=== PATIENT | female | born 1940 | race Caucasian/White ===

== ENCOUNTER 2017-03-10 18:01 | Inpatient (IN) | payer MEDICARE, OTHER ==
[~2017-03-10] VITALS: Ht 152.4 cm; Wt 64.6 kg
[2017-03-10 18:24] LABS: AADO2 Arterial 113.4 mmHg (7.0-24.0); Allen Test ACCEPTAB; Arterial Base Excess 0.6 mmol/L (-3.0-3); Arterial COHb 0 % (0.0-3.0); Arterial Fraction of Oxyhgb 94.8 % (93.0-99.0); Arterial HCO3 24.4 mmol/L (22.0-26.0); Arterial MetHb 0.3 % (0.0-1.5); Arterial Total Hemglobin 10.1 g/dl (12.0-18.0); MODE NASAL CANNULA
[2017-03-10] MEDS ORDERED: ONDANSETRON 4 MG INJ IV STA (18:27)
[2017-03-10] MEDS ORDERED: ZOLP5TAB PO (18:28)
[2017-03-10] MEDS ORDERED: APIX2.5T PO (18:28)
[2017-03-10] MEDS ORDERED: ACYC400T2 PO (18:28)
[2017-03-10] MEDS ORDERED: BUSP10TA2 PO (18:29)
[2017-03-10] MEDS ORDERED: LORA-441 PO (18:29)
[2017-03-10] MEDS ORDERED: DILTIAZEM 25 MG INJ IV ONE (18:30)
[2017-03-10] MEDS ORDERED: CITA20TA11 PO (18:30)
[2017-03-10] MEDS ORDERED: LACTINEX PO (18:30)
[2017-03-10] MEDS ORDERED: FER325 PO (18:30)
[2017-03-10] MEDS ORDERED: LAMO25TA PO (18:31)
[2017-03-10] MEDS ORDERED: FURO-110 PO (18:31)
[2017-03-10] MEDS ORDERED: LEVA0.634 INHALATION ×2 (18:32→18:33)
[2017-03-10] MEDS ORDERED: ATOR80TA75 PO (18:34)
[2017-03-10] MEDS ORDERED: LEVO250T9 PO (18:34)
[2017-03-10] MEDS ORDERED: MELA5TAB4 PO (18:34)
[2017-03-10] MEDS ORDERED: METO-335 PO (18:36)
[2017-03-10] MEDS ORDERED: MULTI PO (18:37)
[2017-03-10] MEDS ORDERED: HYDR-906 PO ×2 (18:37→18:38)
[2017-03-10] MEDS ORDERED: POTA10TA37 PO (18:39)
[2017-03-10] MEDS ORDERED: PANT40TA3 PO (18:39)
[2017-03-10] MEDS ORDERED: AMIN30LI PO (18:40)
[2017-03-10] MEDS ORDERED: ASCO500C7 PO (18:40)
[2017-03-10] MEDS ORDERED: SODI650T PO (18:41)
[2017-03-10] MEDS ORDERED: ACET-2047 PO (18:41)
[2017-03-10] MEDS ORDERED: UDROBDM PO (18:42)
[2017-03-10] MEDS ORDERED: MIRT7.5T8 PO (18:42)
--- NOTE | 2017-03-10 18:49 | RADRPT ---
PROCEDURE: XR, Chest. CLINICAL INDICATION: Chest pain. TECHNIQUE: AP chest COMPARISON: None available. FINDINGS: There is no acute infiltrate in the lungs. There is large bilateral pleural effusion with compressi ve atelectasis of the both lower lobes. The heart is moderately enlarged with pulmonary venous sebastian estion. There is status post CABG. The right Port-A-Cath remains in good position. IMPRESSION: 1. Large bilateral pleural effusion with compressive atelectasis of the both lower lobes. 2. Moderate cardiomegaly with pulmonary venous congestion. Status post CABG. RPTAT: GG .Kody Dahl MD, Date Time Electronically viewed and signed by .Kody Dahl MD, on 03/10/2017 18:48 .Y/
--- NOTE | 2017-03-10 18:49 | ERD ---
ER Documentation Chief Complaint Chief Complaint Shortness of breath and cyanosis at her facility. HPI 76-year-old female comes in for increasing shortness of breath over the last 2 days without chest discomfort without pain. She also has nausea and feels generally weak. She is brought in by paramedics who described her as having perioral cyanosis when they arrived. She states feeling very cold but denies fever or chills.. ROS All systems reviewed and are negative except as per history of present illness. Medications Home Meds Reported Medications Mirtazapine* (Mirtazapine*) 7.5 Mg Tablet, 7.5 MG PO HS, TAB 03/10/17 Guaifenesin-Dextromethorphan* (Robitussin* DM) 100MG/10MG/5ML Syrup, 10 ML PO Q6H Y for COUGH, ML 03/10/17 Sodium Bicarbonate* (Sodium Bicarbonate*) 650 Mg Tablet, 650 MG PO TID, TAB 03/10/17 Acetaminophen* (Acetaminophen*) 650 Mg Tablet, 650 MG PO Q4 Y for PAIN AND OR ELEVATED TEMP, #30 TAB 03/10/17 Ascorbic Acid* (Vitamin C*) 500 Mg Capsule.sa, 500 MG PO BID, CAP 03/10/17 Amino Acids/Protein Hydrolys (PRO-STAT LIQUID) 30 Ml Liquid.pkt, 30 ML PO BID 03/10/17 Potassium Chloride* (K-Dur*) 10 Meq Tab.prt.sr, 10 MEQ PO DAILY, TAB 03/10/17 Pantoprazole* (Protonix*) 40 Mg Tablet.dr, 40 MG PO DAILY, TAB 03/10/17 Hydrocodone/Acetaminophen ([place] 5-325 Tablet) 1 Each Tablet, 1 EACH PO BID Y for PAIN MANAGEMENT, TAB 03/10/17 Hydrocodone/Acetaminophen ([place] 5-325 Tablet) 1 Each Tablet, 1 EACH PO Q6 Y for MODERATE PAIN LEVEL 4-6, TAB 03/10/17 Multivitamins* (Theragran*) 1 Tab Tab, 1 TAB PO DAILY, TAB 03/10/17 Metoprolol Succinate* (Toprol XL*) 25 Mg Tab.sr.24h, 25 MG PO DAILY, #30 TAB HOLD IF SBP BELOW 110 OR HR BELOW 60 03/10/17 Melatonin (Melatonin) 5 Mg Tablet, 5 MG PO HS, TAB 03/10/17 Atorvastatin* (Atorvastatin*) 80 Mg Tablet, 80 MG PO QHS, #30 TAB 03/10/17 Levofloxacin* (Levofloxacin*) 250 Mg Tablet, 250 MG PO DAILY, TAB STOP 03-14-17 03/10/17 Levalbuterol Hcl* (Levalbuterol Hcl*) 0.63 Mg/3 Ml Vial.neb, 0.63 MG INHALATION Q8 Y for WHEEZING AND SOB, VIAL 03/10/17 Levalbuterol Hcl* (Levalbuterol Hcl*) 0.63 Mg/3 Ml Vial.neb, 0.63 MG INHALATION Q4 Y for WHEEZING AND SOB, VIAL 03/10/17 Furosemide* (Lasix*) 20 Mg Tablet, 20 MG PO DAILY, TAB 03/10/17 Lamotrigine* (Lamotrigine*) 25 Mg Tablet, 25 MG PO DAILY, TAB 03/10/17 Lactobacillus Acidophilus* (Lactinex*) 1 Tab Chew, 1 TAB PO DAILY, TAB 03/10/17 Ferrous Sulfate* (Ferrous Sulfate*) 325 Mg Tabec, 325 MG PO BID, TAB 03/10/17 Citalopram Hydrobromide* (Celexa*) 20 Mg Tablet, 20 MG PO DAILY, #30 TAB 03/10/17 Buspirone Hcl* (Buspirone Hcl*) 10 Mg Tab, 10 MG PO BID, TAB 03/10/17 Lorazepam* (Ativan*) 0.5 Mg Tablet, 0.5 MG PO Q6 Y for ANXIETY, #60 TAB 03/10/17 Apixaban* (Eliquis*) 2.5 Mg Tablet, 2.5 MG PO BID, TAB 03/10/17 Zolpidem Tartrate* (Ambien*) 5 Mg Tablet, 5 MG PO QHS Y for INSOMNIA, #30 TAB 03/10/17 Acyclovir* (Acyclovir*) 400 Mg Tablet, 400 MG PO MONWEDFRI, TAB 03/10/17 Allergies Allergies: Coded Allergies: No Known Allergy (Unverified , 03/10/17) Physical Exam Vitals Vital Signs Date Time Temp Pulse Resp B/P Pulse Ox O2 Delivery O2 Flow Rate FiO2 03/10/17 20:30 98.5 82 20 98/47 100 Nasal Cannula 03/10/17 19:30 98.7 105 20 92/67 97 Nasal Cannula 03/10/17 18:30 98.7 136 25 101/57 97 Nasal Cannula 03/10/17 18:30 Nasal Cannula 2 03/10/17 18:30 Nasal Cannula 2.0 Physical Exam Const: [] Moderate distress, appears uncomfortable Head: Atraumatic Eyes: Normal Conjunctiva ENT: Normal External Ears, Nose and Mouth. Neck: Full range of motion..~ No meningismus. Resp: Moderately decreased bibasilar breath sounds with some anterior wheezing bilaterally, mild tachypnea Cardio: Irregularly irregular tachycardia, no murmurs Abd: Soft, non tender, non distended. Normal bowel sounds Skin: No petechiae or rashes Back: No midline or flank tenderness Ext: No cyanosis, or edema Neur: Awake and alert oriented 3, no focal deficits Psych: Anxious Result Diagram: 03/10/17192903/10/171928 Results 24 hrs Laboratory Tests Test 03/10/17 18:06 03/10/17 19:29 03/10/17 19:30 03/10/17 20:22 Blood Gas Specimen Source Blood arterial Arterial Blood Date Drawn 03/10/2017 6:18:22 PM Arterial Blood pH (Temp corrected) 7.450 Arterial Blood pCO2 (Temp correct) 35.9mmhg Arterial Blood pO2 (Temp corrected) 80.0mmHG Arterial Blood HCO3 24.4mmol/L Arterial Blood Base Excess 0.6mmol/L Arterial Blood Oxygen Saturation 95.1mmHG Ernesto Test ACCEPTAB Arterial Blood Gas Puncture Site Left Radial Arterial Blood Carboxyhemoglobin 0% Arterial Blood Methemoglobin 0.3% Blood Gas A-a O2 Differential 113.4mmHg Oxyhemoglobin Percent 94.8% Total Hemoglobin 10.1g/dl Blood Gas Temperature 37.0C Blood Gas Modality NASAL CANNULA FiO2 33.0% Blood Gas Notified Whom MDA Blood Gas Notified Time 03/10/2017 6:24:47 PM Sodium Level 142mmol/L Potassium Level 4.0mmol/L Chloride Level 107mmol/L Carbon Dioxide Level 25mmol/L Anion Gap 14 Blood Urea Nitrogen 32mg/dl Creatinine 1.45mg/dl Glucose Level 78mg/dl Calcium Level 8.1mg/dl Troponin I < 0.012ng/ml B-Type Natriuretic Peptide 52679CU/ML White Blood Count 12.010^3/ul Red Blood Count 2.7610^6/ul Hemoglobin 8.7g/dl Hematocrit 27.1% Mean Corpuscular Volume 98.2fl Mean Corpuscular Hemoglobin 31.5pg Mean Corpuscular Hemoglobin Concent 32.1g/dl Red Cell Distribution Width 17.1% Platelet Count 99770^3/UL Mean Platelet Volume 12.0fl Neutrophils % % Segmented Neutrophils % (Manual) 57% Band Neutrophils % (Manual) 2% Lymphocytes % % Lymphocytes % (Manual) 37% Monocytes % % Monocytes % (Manual) 4% Eosinophils % % Basophils % % Nucleated Red Blood Cells % 0.0/100WBC Neutrophils # 10^3/ul Neutrophils # (Manual) 6.910^3/ul Band Neutrophils # 0.210^3/ul Absolute Lymphocytes (Manual) 4.410^3/ul Lymphocytes # 10^3/ul Monocytes # 10^3/ul Absolute Monocytes (Manual) 0.410^3/ul Eosinophils # 10^3/ul Basophils # 10^3/ul Nucleated Red Blood Cells # 10^3/ul Platelet Estimate DECREASED Hypochromasia 1+ Poikilocytosis 1+ Anisocytosis 1+ Macrocytosis 1+ Tear Drop Cells 1+ Ovalocytes 1+ Lactic Acid Level 1.4mmol/L Current Medications Medications (Trade) Dose Ordered Sig/Marcos Route PRN Reason Start Time Stop Time Status Last Admin Dose Admin Diltiazem HCl (Cardizem Iv) 15 mg ONCE ONCE IV 03/10/17 18:30 03/10/17 18:31 DC 03/10/17 19:25 Ondansetron HCl (Zofran Inj) 4 mg ONCE STAT IV 03/10/17 18:27 03/10/17 18:29 DC 03/10/17 19:25 Morphine Sulfate 3 mg 3 mg ONCE STAT IV 03/10/17 19:21 03/10/17 19:22 DC 03/10/17 19:27 Lactated Ringer's 1,000 ml @ 1,000 mls/hr Q1H ONCE IV 03/10/17 20:30 03/10/17 21:29 DC Cefepime HCl 50 ml @ 100 mls/hr ONCE ONCE IVPB 03/10/17 20:30 03/10/17 20:59 DC 03/10/17 20:50 Norepinephrine 0 ml @ ud STK-MED ONCE .ROUTE 03/10/17 20:22 03/10/17 20:23 DC Norepinephrine 250 ml @ 1.875 mls/ hr TITRATE IV 03/10/17 20:30 Lactated Ringer's 1,000 ml @ 1,000 mls/hr Q1H ONCE IV 03/10/17 20:30 03/10/17 21:29 DC 03/10/17 20:30 Lactated Ringer's (Lr) 500 ml @ 500 mls/hr Q1H ONCE IV 03/10/17 20:30 03/10/17 21:29 DC Procedures/MDM 76-year-old female with significant hypotension combined with acute congestive heart failure and reactive airway component. She has had cyanosis prior to oxygen administration. A. fib with RVR was quickly corrected with Cardizem. The patient's blood pressure did not rebound after that and had several low blood pressure readings although her heart rate was controlled. She also had profound shortness of breath. She was given a breathing treatment because she had some wheezing of Xopenex and Atrovent. This did help her feel like she had less shortness of breath. She had to be given IV fluid to try to correct the hypotension and Levophed drip was even started for a short time. She was given sepsis dose IV fluids and cefepime was started when her white blood cell count remained elevated in conjunction with the tachycardia. Pleural effusions make it difficult to evaluate for any infiltrate in the lower lobes of her lungs. Does have significant elevation of BNP. She is being admitted to ICU because she requires such close monitoring of concomitant congestive heart failure with hypotension requiring IV fluid. Dr. Wise will be admitting. EKG interpretation: A. fib with RVR rate of 107, left axis deviation, low voltage with global T-wave flattening with no ST elevations or depressions concerning for acute ischemia, abnormal EKG. Monitor interpretation: Initial irregular tachycardia rate up to 140s followed by rate controlled A. fib after Cardizem administration. No other arrhythmias Chest x-ray interpretation: Bilateral moderate pleural effusions with difficulty evaluating for underlying pneumonia in the lower lungs, engorgement of pulmonary vasculature with no sona pulmonary edema, no pneumothorax, no fractures Critical care time greater than 35 minutes: This includes treatment of A. fib with RVR, use of vasoactive medication Cardizem, multiple visits patient's bedside to reassess cardio dynamic status, review of chart, discussion with patient and daughter admitting doctor. This does not include any billable procedures. Departure Diagnosis: Primary Impression: Atrial fibrillation with RVR Additional Impressions: Respiratory distress Hypotension Congestive heart failure Normocytic anemia Renal insufficiency Condition: Serious MIGUEL ANGEL FALLON DO Mar 10, 2017 18:48
[2017-03-10] MEDS ORDERED: morphine 4 MG/ML VIAL IV STA (19:21)
[2017-03-10 19:41] LABS: HEMATOCRIT 27.1 % (37.0-47.0); HEMOGLOBIN 8.7 g/dl (12.0-16.0); MEAN CORPUSCULAR HEMOGLOBIN 31.5 pg (29.0-33.0); MEAN CORPUSCULAR HGB CONC 32.1 g/dl (32.0-37.0); MEAN CORPUSCULAR VOLUME 98.2 fl (82.0-101.0); PLATELET COUNT 134 10^3/UL (140-415); RED BLOOD COUNT 2.76 10^6/ul (4.20-5.40); RED CELL DISTRIBUTION WIDTH 17.1 % (11.5-14.5)
[2017-03-10 19:49] LABS: POSITIVE DIFF @See below
[2017-03-10 20:04] LABS: ANION GAP 14 (8-16); BLOOD UREA NITROGEN 32 mg/dl (7-20); CALCIUM 8.1 mg/dl (8.4-10.2); CARBON DIOXIDE 25 mmol/L (21-31); CHLORIDE 107 mmol/L (97-110); CREATININE 1.45 mg/dl (0.44-1.00); GLUCOSE 78 mg/dl (70-220); SODIUM 142 mmol/L (135-144)
[2017-03-10 20:14] LABS: B-TYPE NATRIURETIC PEPTIDE 16400 PG/ML (0-450)
[2017-03-10 20:14] LABS: ANISOCYTOSIS 1+ (0-0); BURR CELLS 1+ (0-0); HYPOCHROMASIA 1+ (0-0); MONOCYTES % (M) 4 % (0-11); OVALOCYTES 1+ (0-0); PLATELET ESTIMATE DECREASED; POIKILOCYTOSIS 1+ (0-0); TEAR DROP CELLS 1+ (0-0)
[2017-03-10 20:15] LABS: TROPONIN-I < 0.012 ng/ml (0.00-0.12)
[2017-03-10] MEDS ORDERED: NORepinephrine 8MG/250 ML (PMX 0 ML ONE (20:22)
[2017-03-10] MEDS ORDERED: LACTATED RINGER'S 1,000 ML IV ONE ×2 (20:30)
[2017-03-10] MEDS ORDERED: NORepinephrine 8MG/250 ML (PMX 250 ML IV SCH ×2 (20:30→23:30)
[2017-03-10] MEDS ORDERED: CEFEPIME 2GM/50 ML (PMX) 50 ML IVPB ONE (20:30)
[2017-03-10] MEDS ORDERED: LACTATED RINGER'S 500 ML IV ONE (20:30)
[2017-03-10] MEDS ORDERED: LEVALBUTEROL (NEB) 1.25 MG/0.5 ML AMP HHN ONE (21:30)
[2017-03-10] MEDS ORDERED: IPRATROPIUM (NEB) 0.5 MG/2.5 ML AMP HHN ONE (21:30)
[2017-03-10 22:08] LABS: ADD UMIC NO; UR ASCORBIC ACID 40 mg/dL (NEGATIVE); UR BILIRUBIN (Dip) NEGATIVE (NEGATIVE); UR BLOOD (Dip) NEGATIVE (NEGATIVE); UR CLARITY CLEAR (CLEAR); UR COLOR YELLOW (YELLOW); UR GLUCOSE (Dip) NEGATIVE (NEGATIVE); UR KETONES (Dip) NEGATIVE (NEGATIVE); UR LEUKOCYTE ESTERASE (Dip) NEGATIVE Leu/ul (NEGATIVE); UR NITRITE (Dip) NEGATIVE (NEGATIVE); UR SPECIFIC GRAVITY (Dip) 1.012 (1.003-1.030); UR TOTAL PROTEIN (Dip) NEGATIVE (NEGATIVE); UR UROBILINOGEN (Dip) NEGATIVE (NEGATIVE)
[2017-03-10 23:30] VITALS: TEMP 98.6
[2017-03-10] MEDS ORDERED: morphine 2 MG INJ IV PRN (23:30)
[2017-03-10] MEDS ORDERED: NITROGLYCERIN (SL) 0.4 MG TAB SL PRN (23:30)
[2017-03-11] VITALS (48 sets, daily range): BP systolic 75–141; BP diastolic 39–100; PULSE 76–152; RESP 11–28
[2017-03-11] MEDS ORDERED: PENDING SANTYL ORDER FOR WOUND CARE XX PRN (01:30)
[2017-03-11 01:44] LABS: CREATINE KINASE 27 IU/L (23-200)
[2017-03-11] MEDS: ALBUTEROL/IPRATROPIUM (NEB) 3 ML AMP NEB PRN ×2 (01:54→22:10)
[2017-03-11 02:04] LABS: CK-MB 1.76 ng/ml (0.0-2.4)
[2017-03-11 02:08] LABS: TROPONIN-I < 0.012 ng/ml (0.00-0.12)
[2017-03-11 05:45] LABS: ALBUMIN 2.1 g/dl (3.3-4.9); ALBUMIN/GLOBULIN RATIO 0.87; CREATININE 1.43 mg/dl (0.44-1.00); MAGNESIUM 1.7 mg/dl (1.7-2.5); POTASSIUM 4.1 mmol/L (3.5-5.1); TOTAL PROTEIN 4.5 g/dl (6.1-8.1)
[2017-03-11 05:47] LABS: CREATINE KINASE 26 IU/L (23-200)
[2017-03-11 05:59] LABS: TROPONIN-I < 0.012 ng/ml (0.00-0.12)
[2017-03-11] MEDS ORDERED: PANTOPRAZOLE (EC) 40 MG TAB PO SCH (06:00)
[2017-03-11] MEDS ORDERED: VANCOMYCIN IV PER PHARMACY XX SCH (07:00)
[2017-03-11] MEDS: METOPROLOL (XL) 25 MG TAB PO SCH ×2 (07:00→08:21)
--- NOTE | 2017-03-11 07:00 | HP ---
Date/Time of Note Date/Time of Note DATE: 03/11/17 TIME: 06:53 Assessment/Plan VTE Prophylaxis VTE Prophylaxis Intervention: other (Eliquis) Lines/Catheters IV Catheter Type (from Nrs): paulie cath Central line still needed: Yes Urinary Cath still in place: Yes Reason Cath still needed: terminal illness/intractable pain Assessment/Plan Assessment/Plan 1. A-fib with RVR -Continue outpatient Toprol and Eliquis -Will start on a meal drip -Obtain a 2D echo and trend troponins -Cardiology consult 2. Shock, cardiac vs from cardizem vs other -Continue pressure support for now -Cardiology consult 3. CHF exacerbation, with volume overload state, -CXR with Large bilateral pleural effusion, +significant LE edema -will diurese -will give albumin to help with BP and edema -Check 2D echo -Pulmonary and cardiac consult 4. History of CAD with CABG -Continue outpatient medications -Cardiology to follow patient 5. History of COPD -Supplemental oxygen -As needed bronchodilators and steroid 6. Sacral decubitus ulcer -Wound care consult, wound culture, antibiotic 7. Acute versus CKD -Monitor a.m. lab for now -Avoid nephrotoxins -Renal ultrasound and nephrology consult as needed HPI/ROS Admit Date/Time Admit Date/Time Mar 10, 2017 at 20:32 Hx of Present Illness This is a 76-year-old female with a history of hypertension, COPD, bipolar, CAD , CABG who presented to the ER for shortness of breath, chest pain, generalized weakness. Symptoms been going on for the past 2 days. When she presented to the ER she was found to be in rapid A-fib. She was given diltiazem and then was started on Levophed for hypotension. Labs shows a WBC of 12,000, creatinine 1.45 and hemoglobin 8.7. Troponins are negative 3 so far. Chest x- ray shows large bilateral pleural effusion with compressive atelectasis of the lower lobes as well as cardiomegaly and pulmonary vascular congestion. Patient was also noted to have sacral pressure ulcer. PMH/Family/Social Social History Smoking Status: Never smoker Exam/Review of Systems Vital Signs Vitals Vital Signs Date Time Temp Pulse Resp B/P Pulse Ox O2 Delivery O2 Flow Rate FiO2 03/11/17 05:00 152 03/11/17 03:00 16 75/42 99 Nasal Cannula 2.0 03/11/17 02:05 31 03/11/17 00:30 97.8 Intake and Output 03/10/17 03/10/17 03/11/17 14:59 22:59 06:59 Output Total 190 ml Balance -190 ml Exam Constitutional: other (Sleepy, but arousable) Head: atraumatic, normocephalic Eyes: EOMI, PERRL Respiratory: clear to auscultation, normal air movement Gastrointestinal: non-tender, soft Extremities: normal pulses Labs Result Diagram: 03/10/17 1930 03/11/17 0500 Medications Medications Current Medications Norepinephrine (Levophed) 250 ml @ 1.875 mls/ hr TITRATE IV Last administered on 03/11/17 02:23; Admin Dose 3.75 MLS/HR; Start 03/10/17 at 20:30 Ondansetron HCl (Zofran Inj) 4 mg Q6H PRN IV NAUSEA AND/OR VOMITING; Start at 23:30 Nitroglycerin (Nitroglycerin (Sl Tab) 0.4 Mg) 1 tab Q5M PRN SL CHEST PAIN; Start 03/10/17 at 23:30 Acetaminophen (Tylenol Liquid) 650 mg Q6H PRN PO PAIN LEVEL 1-3 OR FEVER; Start 03/10/17 at 23:30 Morphine Sulfate (morphine) 2 mg Q4H PRN IV PAIN LEVEL 7-10; Start 03/10/17 at 23:30 Apixaban (Eliquis) 2.5 mg BID PO ; Start 03/11/17 at 09:00 Atorvastatin Calcium (Lipitor) 80 mg QHS PO ; Start 03/11/17 at 21:00 Buspirone HCl (Buspar) 10 mg BID PO ; Start 03/11/17 at 09:00 Citalopram Hydrobromide (Celexa) 20 mg DAILY PO ; Start 03/11/17 at 09:00 Lamotrigine (Lamictal) 25 mg DAILY PO ; Start 03/11/17 at 09:00 Mirtazapine (Remeron) 7.5 mg HS PO ; Start 03/11/17 at 21:00 Pantoprazole (Protonix Tab) 40 mg DAILY@06 PO Last administered on 03/11/17 05:44; Admin Dose 40 MG; Start 03/11/17 at 06:00 Potassium Chloride (Klor-Con 10) 10 meq DAILY PO ; Start 03/11/17 at 09:00 Miscellaneous Information (Pending Santyl Order For Wound Care) This patient buitrago... PRN PRN XX WOUND CARE; Start 03/11/17 at 01:30 Furosemide (Lasix) 20 mg DAILY IV ; Start 03/11/17 at 09:00; Status UNV Metoprolol Succinate 25 mg 25 mg DAILY PO ; Start 03/11/17 at 07:00; Status UNV Amiodarone HCl/ Dextrose (Cordarone Iv/ D5W) 500 ml @ 0 mls/hr Q0M IV ; Start 03/11/17 at 07:00; Status UNV MIRI CRUZ MD Mar 11, 2017 07:00
[2017-03-11] MEDS ORDERED: AMIODARONE 900 MG in DEXTROSE 5% 482 ML IV SCH (08:00)
[2017-03-11 08:27] LABS: BASOPHILS % 0.2 % (0.0-2.0); EOSINOPHILS % 0.2 % (0.0-7.0); HEMATOCRIT 24.9 % (37.0-47.0); HEMOGLOBIN 8.1 g/dl (12.0-16.0); LYMPHOCYTES # 2.8 10^3/ul (0.8-2.9); LYMPHOCYTES % 28.1 % (15.0-51.0); MEAN CORPUSCULAR HEMOGLOBIN 32.3 pg (29.0-33.0); MEAN CORPUSCULAR HGB CONC 32.5 g/dl (32.0-37.0); MEAN CORPUSCULAR VOLUME 99.2 fl (82.0-101.0); MONOCYTE # 0.6 10^3/ul (0.3-0.9); MONOCYTES % 6.2 % (0.0-11.0); NEUTROPHIL # 6.5 10^3/ul (1.6-7.5); NEUTROPHILS % 64.5 % (39.0-77.0); PLATELET COUNT 129 10^3/UL (140-415); RED BLOOD COUNT 2.51 10^6/ul (4.20-5.40); RED CELL DISTRIBUTION WIDTH 17.3 % (11.5-14.5); WHITE BLOOD COUNT 10.1 10^3/ul (4.8-10.8)
[2017-03-11 08:34] LABS: POSITIVE DIFF @See below
[2017-03-11] MEDS: ALBUMIN HUMAN 25% 100 ML IV SCH ×2 (08:53→16:30)
[2017-03-11] MEDS: CEFEPIME HCL 0.5 GM in SOD CHLORIDE 0.9% 100 ML IVPB SCH (08:54)
[2017-03-11] MEDS: CITALOPRAM 20 MG TAB PO SCH (08:55)
[2017-03-11] MEDS: POTASSIUM CHLORIDE (SR) 10 MEQ TAB PO SCH (08:55)
[2017-03-11] MEDS: BUSPIRONE 10 MG TAB PO SCH ×2 (08:55→22:27)
[2017-03-11 08:58] LABS: HDL CHOLESTEROL 12 mg/dl (33-92); TRIGLYCERIDES 92 mg/dl (0-149)
[2017-03-11] MEDS ORDERED: FUROSEMIDE 40 MG INJ IV SCH ×2 (09:00→18:00)
[2017-03-11] MEDS ORDERED: FUROSEMIDE 20 MG INJ IV SCH (09:00)
[2017-03-11] MEDS ORDERED: APIXABAN 5 MG TABLET PO SCH (09:00)
[2017-03-11 09:06] LABS: CHOLESTEROL < 50 mg/dl (100-200)
[2017-03-11] MEDS ORDERED: VANCOMYCIN 1.25 GM in SOD CHLORIDE 0.9% 250 ML IVPB SCH (09:30)
[2017-03-11] MEDS: LAMOTRIGINE 25 MG TAB PO SCH (11:23)
[2017-03-11] MEDS: BALSAM PERU/CASTOR OIL 60 GM TUBE TOP SCH ×2 (13:30→22:26)
--- NOTE | 2017-03-11 15:14 | RADRPT ---
Echocardiogram Report Patient Name: MIKI LOVETT Gender: Female Date: 1940 Study Date: 11-Mar-2017 Aircraft Avionics Technician: Yesenia Menjivar RDCS Location: 109 Ref. Physician: MIRI CRUZ Quality: Good Procedures: Transthoracic echocardiogram with complete 2D, M-Mode, and doppler examination. Indications: shock. Atrial Fibrillation. 2D/M Mode Doppler Measurement Value Normal Ranges Measurement Value Normal Ranges LVIDd 2D 4.7 3.5 - 5.6 cm AV Peak Chuck 1.7 m/sec LVIDs 2D 2.4 2.1 - 4.1 cm AV Peak PG 12.0 mmHg FS 2D 48.5 % LVOT Peak Chuck 0.8 m/sec LVPWd 2D 0.9 0.6 - 1.1 cm LVOT Peak PG 3.0 mmHg IVSd 2D 0.9 0.6 - 1.1 cm MV E Peak Chuck 1.2 m/sec IVS/LVPW 2D 1.0 MV Decel Time 158 msec AoR Diam 2D 2.4 2.0 - 3.7 cm TR Peak Chuck 3.8 m/sec LA/Ao 2D 2 0 - 1 TR Peak PG 58.0 mmHg EDV 2D 106.0 cm3 RVSP 68.0 mmHg ESV 2D 14.5 cm3 LA Dimen 2D 3.7 2.3 - 4.0 cm Findings Left Ventricle: Normal left ventricular systolic function. Normal left ventricular cavity size. Normal left ventricular wall thickness. Ejection fraction is visually estimated at 55 %. Tissue Doppler/Mitral Doppler indices are indeterminate in this study due to the presence of. Right Ventricle: Normal right ventricular size. Normal right ventricular systolic function. Left Atrium: There is mild enlargement of left atrium. Right Atrium: There is mild enlargement of right atrium. Mitral Valve: Mitral valve leaflets appear mildly thickened. Mild mitral annular calcification. Moderate mitral valve regurgitation. Aortic Valve: No hemodynamically significant aortic stenosis by doppler. Aortic cusps appear mildly calcified. Trace aortic valve regurgitation. Tricuspid Valve: Normal appearance of the tricuspid valve. Estimated peak PA systolic pressure 68 mmHg. There is moderate to severe tricuspid regurgitation. Pulmonic Valve: Normal pulmonic valve appearance. Pericardium: Trivial pericardial effusion. Pleural effusion seen. Aorta: Normal aortic root. IVC: Dilated IVC without respiratory collapse consistent with elevated right atrial pressure. Conclusions 1.There is mild enlargement of left atrium. 2.There is mild enlargement of right atrium. 3.Normal left ventricular systolic function. Normal left ventricular cavity size. Normal left ventricular wall thickness. Ejection fraction is visually estimated at 55 %. Tissue Doppler/Mitral Doppler indices are indeterminate in this study due to the presence of. 4.Mitral valve leaflets appear mildly thickened. Mild mitral annular calcification. Moderate mitral valve regurgitation. 5.No hemodynamically significant aortic stenosis by doppler. Aortic cusps appear mildly calcified. Trace aortic valve regurgitation. 6.Normal appearance of the tricuspid valve. Estimated peak PA systolic pressure 68 mmHg. There is moderate to severe tricuspid regurgitation. 7.Dilated IVC without respiratory collapse consistent with elevated right atrial pressure. Electronically Signed By: Víctor Jerome 11-Mar-2017 15:13:19 -0800 Patient Name: MIKI LOVETT Study Date: 11-Mar-2017 [id number]
--- NOTE | 2017-03-11 16:31 | PN ---
Date/Time of Note Date/Time of Note DATE: 03/11/17 TIME: 16:25 Assessment/Plan VTE Prophylaxis VTE Prophylaxis Intervention: other Lines/Catheters IV Catheter Type (from Nrsg): PORTICATH Urinary Cath still in place: Yes Reason Cath still needed: urinary retention Assessment/Plan Chief Complaint/Hosp Course 76 yo female who presents with permanent atrial fibrillation who presented with acute diastolic CHF exacerbation and A Fib with RVR Acute diastolic CHF exacerbation:- - IV lasix to euvolemia - Cannot exclude underyling pneumonia but seems unlikely, will probably dc abx tomorrow Permanent A Fib: - Rate adequately controlled - 25 Toprol daily, home med - Cont Eliquis, home med Discharge when euvolemic and nonhypoxic Problems: Subjective 24 Hr Interval Summary Free Text/Dictation Still hypoxic, less tahcypneic Off of pressors Turns out she is DNR//DNI and enrolled in a hospice program Exam/Review of Systems Vital Signs Vitals Vital Signs Date Time Temp Pulse Resp B/P Pulse Ox O2 Delivery O2 Flow Rate FiO2 03/11/17 16:23 3.0 03/11/17 14:00 84 16 100/56 100 Nasal Cannula 03/11/17 12:00 98.1 03/11/17 02:05 31 Intake and Output 03/10/17 03/10/17 03/11/17 15:00 23:00 07:00 Intake Total 35.625 ml Output Total 270 ml Balance -234.375 ml Exam +++ massive JVD Lungs dull at bases EF normal on TTE Very dilated IVC Results Result Diagram: 03/11/17 0814 03/11/17 0500 Results 24 hrs Laboratory Tests Test 03/10/17 18:06 03/10/17 19:29 03/10/17 19:30 03/10/17 20:22 Blood Gas Specimen Source Blood arterial Arterial Blood Date Drawn 03/10/2017 6:18:22 PM Arterial Blood pH (Temp corrected) 7.450 Arterial Blood pCO2 (Temp correct) 35.9 Arterial Blood pO2 (Temp corrected) 80.0 Arterial Blood HCO3 24.4 Arterial Blood Base Excess 0.6 Arterial Blood Oxygen Saturation 95.1 Ernesto Test ACCEPTAB Arterial Blood Gas Puncture Site Left Radial Arterial Blood Carboxyhemoglobin 0 Arterial Blood Methemoglobin 0.3 Blood Gas A-a O2 Differential 113.4 H Oxyhemoglobin Percent 94.8 Total Hemoglobin 10.1 L Blood Gas Temperature 37.0 Blood Gas Modality NASAL CANNULA FiO2 33.0 Blood Gas Notified Whom [facility] Blood Gas Notified Time 03/10/2017 6:24:47 PM Sodium Level 142 Potassium Level 4.0 Chloride Level 107 Carbon Dioxide Level 25 Anion Gap 14 Blood Urea Nitrogen 32 H Creatinine 1.45 H Glucose Level 78 Calcium Level 8.1 L Troponin I < 0.012 B-Type Natriuretic Peptide 58767 H White Blood Count 12.0 H Red Blood Count 2.76 L Hemoglobin 8.7 L Hematocrit 27.1 L Mean Corpuscular Volume 98.2 Mean Corpuscular Hemoglobin 31.5 Mean Corpuscular Hemoglobin Concent 32.1 Red Cell Distribution Width 17.1 H Platelet Count 134 L Mean Platelet Volume 12.0 H Neutrophils % Segmented Neutrophils % (Manual) 57 Band Neutrophils % (Manual) 2 Lymphocytes % Lymphocytes % (Manual) 37 Monocytes % Monocytes % (Manual) 4 Eosinophils % Basophils % Nucleated Red Blood Cells % 0.0 Neutrophils # Neutrophils # (Manual) 6.9 Band Neutrophils # 0.2 Absolute Lymphocytes (Manual) 4.4 H Lymphocytes # Monocytes # Absolute Monocytes (Manual) 0.4 Eosinophils # Basophils # Nucleated Red Blood Cells # Platelet Estimate DECREASED Hypochromasia 1+ Poikilocytosis 1+ Anisocytosis 1+ Macrocytosis 1+ Tear Drop Cells 1+ Ovalocytes 1+ Lactic Acid Level 1.4 Test 03/10/17 21:35 03/10/17 22:44 03/11/17 00:53 03/11/17 00:54 Urine Color YELLOW Urine Clarity CLEAR Urine pH 5.0 Urine Specific Roby 1.012 Urine Ketones NEGATIVE Urine Nitrite NEGATIVE Urine Bilirubin NEGATIVE Urine Urobilinogen NEGATIVE Urine Leukocyte Esterase NEGATIVE Urine Hemoglobin NEGATIVE Urine Glucose NEGATIVE Urine Total Protein NEGATIVE Lactic Acid Level 1.3 1.1 Creatine Kinase 27 Creatine Kinase Index 6.5 Creatinine Kinase MB (Mass) 1.76 Troponin I < 0.012 Test 03/11/17 01:32 03/11/17 05:00 03/11/17 08:14 Bedside Glucose 79 Sodium Level 144 Potassium Level 4.1 Chloride Level 109 Carbon Dioxide Level 27 Anion Gap 12 Blood Urea Nitrogen 31 H Creatinine 1.43 H Glucose Level 72 Calcium Level 8.0 L Magnesium Level 1.7 Total Bilirubin 0.0 L Direct Bilirubin 0.00 Indirect Bilirubin 0.0 Aspartate Amino Transf (AST/SGOT) 16 Alanine Aminotransferase (ALT/SGPT) 34 Alkaline Phosphatase 97 Creatine Kinase 26 Creatine Kinase Index 6.9 Creatinine Kinase MB (Mass) 1.80 Troponin I < 0.012 Total Protein 4.5 L Albumin 2.1 L Globulin 2.40 Albumin/Globulin Ratio 0.87 White Blood Count 10.1 Red Blood Count 2.51 L Hemoglobin 8.1 L Hematocrit 24.9 L Mean Corpuscular Volume 99.2 Mean Corpuscular Hemoglobin 32.3 Mean Corpuscular Hemoglobin Concent 32.5 Red Cell Distribution Width 17.3 H Platelet Count 129 L Mean Platelet Volume 12.0 H Neutrophils % 64.5 Lymphocytes % 28.1 Monocytes % 6.2 Eosinophils % 0.2 Basophils % 0.2 Nucleated Red Blood Cells % 0.0 Neutrophils # 6.5 Lymphocytes # 2.8 Monocytes # 0.6 Eosinophils # 0.0 Basophils # 0.0 Nucleated Red Blood Cells # 0.0 Hemoglobin A1c 7.0 H Triglycerides Level 92 Cholesterol Level < 50 L LDL Cholesterol, Calculated HDL Cholesterol 12 L Cholesterol/HDL Ratio Thyroid Stimulating Hormone (TSH) 5.990 H Medications Medications Current Medications Ondansetron HCl (Zofran Inj) 4 mg Q6H PRN IV NAUSEA AND/OR VOMITING; Start at 23:30 Nitroglycerin (Nitroglycerin (Sl Tab) 0.4 Mg) 1 tab Q5M PRN SL CHEST PAIN; Start 03/10/17 at 23:30 Acetaminophen (Tylenol Liquid) 650 mg Q6H PRN PO PAIN LEVEL 1-3 OR FEVER; Start 03/10/17 at 23:30 Morphine Sulfate (morphine) 2 mg Q4H PRN IV PAIN LEVEL 7-10; Start 03/10/17 at 23:30 Apixaban (Eliquis) 2.5 mg BID PO Last administered on 03/11/17 08:55; Admin Dose 2.5 MG; Start 03/11/17 at 09:00 Buspirone HCl (Buspar) 10 mg BID PO Last administered on 03/11/17 08:55; Admin Dose 10 MG; Start 03/11/17 at 09:00 Citalopram Hydrobromide (Celexa) 20 mg DAILY PO Last administered on 08:55; Admin Dose 20 MG; Start 03/11/17 at 09:00 Lamotrigine (Lamictal) 25 mg DAILY PO Last administered on 03/11/17 11:23; Admin Dose 25 MG; Start 03/11/17 at 09:00 Mirtazapine (Remeron) 7.5 mg HS PO ; Start 03/11/17 at 21:00 Pantoprazole (Protonix Tab) 40 mg DAILY@06 PO Last administered on 03/11/17 05:44; Admin Dose 40 MG; Start 03/11/17 at 06:00 Potassium Chloride (Klor-Con 10) 10 meq DAILY PO Last administered on 08:55; Admin Dose 10 MEQ; Start 03/11/17 at 09:00 Miscellaneous Information This patient buitrago... PRN PRN XX WOUND CARE; Start at 01:30 Cefepime HCl 0.5 gm/Sodium Chloride 100 ml @ 100 mls/hr Q24H IVPB Last administered on 03/11/17 08:54; Admin Dose 100 MLS/HR; Start 03/11/17 at 09: 00 Vancomycin HCl 750 mg/Dextrose/ Water 150 ml @ 75 mls/hr Q36H IVPB ; Start at 22:00 Albumin Human (Albumin Human 25%) 100 ml @ 100 mls/hr Q8H IV Last administered on 03/11/17 08:53; Admin Dose 100 MLS/HR; Start 03/11/17 at 08: 30; Stop 03/12/17 at 01:29 GIOVANNI HESTER MD Mar 11, 2017 16:31
--- NOTE | 2017-03-11 17:38 | CONS ---
Date/Time of Note Date/Time of Note DATE: 03/11/17 TIME: 17:26 Assessment/Plan Assessment/Plan Chief Complaint/Hosp Course 1. Afib: chronic: with RVR on admission, but HR is better now 2. shock: probably septic : BP has improved now 3. CHF: acute on chronic: due to diastolic heart failure 4. pulm HTN 5. hx HTN: now hypotensive 6. large pleural effusion 7. hx CAD 8. Hx CABG 9. hx Bipolar d/o 10. anemia 11. CKD 12. History of most likely multiple myeloma: Patient says that she is being followed as an outpatient by her oncologist which does not remember the name of Recommendations: I will hold Eliquis for now in anticipation for thoracentesis. I will order a chest ultrasound tomorrow to evaluate for removal of the pleural effusion. Her blood pressure medication is on hold for now. We will consider addition of digoxin if needed for the heart rate control for now. Antibiotic management will be deferred to the internal medicine team. We will correct electrolytes as needed basis. IV Lasix was initiated. We will continue for the time being we will monitor the renal function closely. Nutritional support to be continued as well. CODE STATUS is DNR. Thank you for his referral. I will continue to follow along with you. Rut Jerome MD [facility] Problems: Consultation Date/Type/Reason Admit Date/Time Mar 10, 2017 at 20:32 Date of Consultation: Mar 11, 2017 Type of Consultation: cardiology Reason for Consultation AFIB RVR. Referring Provider: MIRI CRUZ MD Hx of Present Illness Cardiology Consultation note: CC: SOB HPI: His referral. This is a pleasant 76-year-old female multiple complicated medical history was admitted because of increasing shortness of breath. Patient states that she went to see a new place where she was supposed to stay but it was not ready for her. She got anxious and nervous she has shortness of breath got worse she came to emergency room. In the emergency room she was noted to be in atrial fibrillation rapid ventricular response was also hypotensive and required to be on Levophed. She has been admitted to intensive care unit on Levophed drip. Since admission her blood pressure has improved and the heart rate has improved as well. She denies any chest pain or pressure to me. She still has shortness of breath. Chest x-ray also showed large pleural effusion bilaterally as well. She also complains of cough. Past medical history: CAD: S/P CABG more than 20 years ago at [facility] Probably multiple myeloma. She has been on chemo which has been stopped Atrial fibrillation, chronically on Eliquis Hypertension Dyslipidemia COPD Bipolar disorder Probably chronic kidney disease Meds: Reviewed as per medical reconciliation sheet which was personally reviewed. Social history: Patient has quit smoking when she had her heart surgery many years ago. Family history: No reported early coronary artery disease. Allergies: No reported drug allergy Review of system as above mentioned for generalized fatigue and weakness. Social History Smoking Status: Never smoker Exam/Review of Systems Vital Signs Vitals Vital Signs Date Time Temp Pulse Resp B/P Pulse Ox O2 Delivery O2 Flow Rate FiO2 03/11/17 16:23 3.0 03/11/17 16:00 98.4 84 14 105/56 100 Nasal Cannula 03/11/17 02:05 31 Intake and Output 03/10/17 03/10/17 03/11/17 15:00 23:00 07:00 Intake Total 35.625 ml Output Total 270 ml Balance -234.375 ml Exam General: no acute distress HEENT: NC/AT. pupils are equal. round. NECK: NO JVD. no stridor. CV: irregularly irregular. systolic murmur; no gallop or rubs. PULM: no wheezing . +_ b/l rhonchi. chest: s/p port on right chest. GI: SOFT, NT, ND, no rebound or guarding Extremity: + B/L LE edema. no clubbing. neuro: awake and alert, OX3. Psych: calm and pleasant rectal: deferred : deferred ECG reviewed Afib incomplete LBBB Echo reviewed; 1. There is mild enlargement of left atrium. 2. There is mild enlargement of right atrium. 3. Normal left ventricular systolic function. Normal left ventricular cavity size. Normal left ventricular wall thickness. Ejection fraction is visually estimated at 55 %. Tissue Doppler/Mitral Doppler indices are indeterminate in this study due to the presence of. 4. Mitral valve leaflets appear mildly thickened. Mild mitral annular calcification. Moderate mitral valve regurgitation. 5. No hemodynamically significant aortic stenosis by doppler. Aortic cusps appear mildly calcified. Trace aortic valve regurgitation. 6. Normal appearance of the tricuspid valve. Estimated peak PA systolic pressure 68 mmHg. There is moderate to severe tricuspid regurgitation. 7. Dilated IVC without respiratory collapse consistent with elevated right atrial pressure. CXR personally reviewed: 1. Large bilateral pleural effusion with compressive atelectasis of the both lower lobes. 2. Moderate cardiomegaly with pulmonary venous congestion. Status post CABG. Results Result Diagram: 03/11/17 0814 03/11/17 0500 Results 24 hrs Laboratory Tests Test 03/10/17 18:06 03/10/17 19:29 03/10/17 19:30 03/10/17 20:22 Blood Gas Specimen Source Blood arterial Arterial Blood Date Drawn 03/10/2017 6:18:22 PM Arterial Blood pH (Temp corrected) 7.450 Arterial Blood pCO2 (Temp correct) 35.9 Arterial Blood pO2 (Temp corrected) 80.0 Arterial Blood HCO3 24.4 Arterial Blood Base Excess 0.6 Arterial Blood Oxygen Saturation 95.1 Ernesto Test ACCEPTAB Arterial Blood Gas Puncture Site Left Radial Arterial Blood Carboxyhemoglobin 0 Arterial Blood Methemoglobin 0.3 Blood Gas A-a O2 Differential 113.4 H Oxyhemoglobin Percent 94.8 Total Hemoglobin 10.1 L Blood Gas Temperature 37.0 Blood Gas Modality NASAL CANNULA FiO2 33.0 Blood Gas Notified Whom MDA Blood Gas Notified Time 03/10/2017 6:24:47 PM Sodium Level 142 Potassium Level 4.0 Chloride Level 107 Carbon Dioxide Level 25 Anion Gap 14 Blood Urea Nitrogen 32 H Creatinine 1.45 H Glucose Level 78 Calcium Level 8.1 L Troponin I < 0.012 B-Type Natriuretic Peptide 64955 H White Blood Count 12.0 H Red Blood Count 2.76 L Hemoglobin 8.7 L Hematocrit 27.1 L Mean Corpuscular Volume 98.2 Mean Corpuscular Hemoglobin 31.5 Mean Corpuscular Hemoglobin Concent 32.1 Red Cell Distribution Width 17.1 H Platelet Count 134 L Mean Platelet Volume 12.0 H Neutrophils % Segmented Neutrophils % (Manual) 57 Band Neutrophils % (Manual) 2 Lymphocytes % Lymphocytes % (Manual) 37 Monocytes % Monocytes % (Manual) 4 Eosinophils % Basophils % Nucleated Red Blood Cells % 0.0 Neutrophils # Neutrophils # (Manual) 6.9 Band Neutrophils # 0.2 Absolute Lymphocytes (Manual) 4.4 H Lymphocytes # Monocytes # Absolute Monocytes (Manual) 0.4 Eosinophils # Basophils # Nucleated Red Blood Cells # Platelet Estimate DECREASED Hypochromasia 1+ Poikilocytosis 1+ Anisocytosis 1+ Macrocytosis 1+ Tear Drop Cells 1+ Ovalocytes 1+ Lactic Acid Level 1.4 Test 03/10/17 21:35 03/10/17 22:44 03/11/17 00:53 03/11/17 00:54 Urine Color YELLOW Urine Clarity CLEAR Urine pH 5.0 Urine Specific [facility] 1.012 Urine Ketones NEGATIVE Urine Nitrite NEGATIVE Urine Bilirubin NEGATIVE Urine Urobilinogen NEGATIVE Urine Leukocyte Esterase NEGATIVE Urine Hemoglobin NEGATIVE Urine Glucose NEGATIVE Urine Total Protein NEGATIVE Lactic Acid Level 1.3 1.1 Creatine Kinase 27 Creatine Kinase Index 6.5 Creatinine Kinase MB (Mass) 1.76 Troponin I < 0.012 Test 03/11/17 01:32 03/11/17 05:00 03/11/17 08:14 Bedside Glucose 79 Sodium Level 144 Potassium Level 4.1 Chloride Level 109 Carbon Dioxide Level 27 Anion Gap 12 Blood Urea Nitrogen 31 H Creatinine 1.43 H Glucose Level 72 Calcium Level 8.0 L Magnesium Level 1.7 Total Bilirubin 0.0 L Direct Bilirubin 0.00 Indirect Bilirubin 0.0 Aspartate Amino Transf (AST/SGOT) 16 Alanine Aminotransferase (ALT/SGPT) 34 Alkaline Phosphatase 97 Creatine Kinase 26 Creatine Kinase Index 6.9 Creatinine Kinase MB (Mass) 1.80 Troponin I < 0.012 Total Protein 4.5 L Albumin 2.1 L Globulin 2.40 Albumin/Globulin Ratio 0.87 White Blood Count 10.1 Red Blood Count 2.51 L Hemoglobin 8.1 L Hematocrit 24.9 L Mean Corpuscular Volume 99.2 Mean Corpuscular Hemoglobin 32.3 Mean Corpuscular Hemoglobin Concent 32.5 Red Cell Distribution Width 17.3 H Platelet Count 129 L Mean Platelet Volume 12.0 H Neutrophils % 64.5 Lymphocytes % 28.1 Monocytes % 6.2 Eosinophils % 0.2 Basophils % 0.2 Nucleated Red Blood Cells % 0.0 Neutrophils # 6.5 Lymphocytes # 2.8 Monocytes # 0.6 Eosinophils # 0.0 Basophils # 0.0 Nucleated Red Blood Cells # 0.0 Hemoglobin A1c 7.0 H Triglycerides Level 92 Cholesterol Level < 50 L LDL Cholesterol, Calculated HDL Cholesterol 12 L Cholesterol/HDL Ratio Thyroid Stimulating Hormone (TSH) 5.990 H Medications Medications Current Medications Ondansetron HCl (Zofran Inj) 4 mg Q6H PRN IV NAUSEA AND/OR VOMITING; Start at 23:30 Nitroglycerin (Nitroglycerin (Sl Tab) 0.4 Mg) 1 tab Q5M PRN SL CHEST PAIN; Start 03/10/17 at 23:30 Acetaminophen (Tylenol Liquid) 650 mg Q6H PRN PO PAIN LEVEL 1-3 OR FEVER; Start 03/10/17 at 23:30 Morphine Sulfate (morphine) 2 mg Q4H PRN IV PAIN LEVEL 7-10; Start 03/10/17 at 23:30 Apixaban (Eliquis) 2.5 mg BID PO Last administered on 03/11/17 08:55; Admin Dose 2.5 MG; Start 03/11/17 at 09:00; Status Future Hold Buspirone HCl (Buspar) 10 mg BID PO Last administered on 03/11/17 08:55; Admin Dose 10 MG; Start 03/11/17 at 09:00 Citalopram Hydrobromide (Celexa) 20 mg DAILY PO Last administered on 08:55; Admin Dose 20 MG; Start 03/11/17 at 09:00 Lamotrigine (Lamictal) 25 mg DAILY PO Last administered on 03/11/17 11:23; Admin Dose 25 MG; Start 03/11/17 at 09:00 Mirtazapine (Remeron) 7.5 mg HS PO ; Start 03/11/17 at 21:00 Potassium Chloride (Klor-Con 10) 10 meq DAILY PO Last administered on 08:55; Admin Dose 10 MEQ; Start 03/11/17 at 09:00 Miscellaneous Information This patient buitrago... PRN PRN XX WOUND CARE; Start at 01:30 Cefepime HCl 0.5 gm/Sodium Chloride 100 ml @ 100 mls/hr Q24H IVPB Last administered on 03/11/17 08:54; Admin Dose 100 MLS/HR; Start 03/11/17 at 09: 00 Vancomycin HCl/ Dextrose/Water (Vancocin/D5W) 150 ml @ 75 mls/hr Q36H IVPB ; Start 03/12/17 at 22:00 RUT JEROME MD Mar 11, 2017 17:37
[2017-03-11] MEDS: FUROSEMIDE 40 MG INJ IV SCH (18:08)
--- NOTE | 2017-03-11 20:03 | RADRPT ---
PROCEDURE: US Chest Bilateral CLINICAL INDICATION: Pleural effusion TECHNIQUE: Images taken during real time interrogation of bilateral lung bases using a curved ryan sducer were submitted. COMPARISON: Portable chest done 03/10/2017 The previous chest film demonstrated moderate bilateral pleural fluid accumulations and atelectasis at the lung bases. FINDINGS: There are large pleural fluid accumulation is noted at the inferior hemithoraces bilaterally greater on the left and the right. Atelectatic lower lobes are identified bilaterally. IMPRESSION: 1. Large pleural fluid accumulation seen at the lung bases slightly greater on the left and the rig ht. 2. The lower lobes appear atelectatic bilaterally. Physician Bill Date Time Electronically viewed and signed by Physician Bill on 03/11/2017 20:02 /
[2017-03-11] MEDS ORDERED: ATORVASTATIN 80 MG TAB PO SCH (21:00)
[2017-03-11] MEDS: MIRTAZAPINE 15 MG TAB PO SCH (22:27)
[2017-03-12] VITALS (12 sets, daily range): BP systolic 102–124; BP diastolic 55–64; PULSE 80–127; RESP 17–20
[2017-03-12] MEDS: FUROSEMIDE 40 MG INJ IV SCH (05:26)
[2017-03-12 06:41] LABS: ABNORMAL IP MESSAGE 1; HEMOGLOBIN 7.1 g/dl (12.0-16.0); MEAN CORPUSCULAR HEMOGLOBIN 32.1 pg (29.0-33.0); MEAN CORPUSCULAR HGB CONC 32.3 g/dl (32.0-37.0); MEAN CORPUSCULAR VOLUME 99.5 fl (82.0-101.0); MEAN PLATELET VOLUME 10.6 fl (7.4-10.4); RED BLOOD COUNT 2.21 10^6/ul (4.20-5.40); WHITE BLOOD COUNT 6.1 10^3/ul (4.8-10.8)
[2017-03-12 06:55] LABS: PLATELET COUNT 91 10^3/UL (140-415); POSITIVE DIFF @See below
[2017-03-12 07:06] LABS: B-TYPE NATRIURETIC PEPTIDE 17700 PG/ML (0-450)
[2017-03-12 07:07] LABS: ALBUMIN 2.4 g/dl (3.3-4.9); ALBUMIN/GLOBULIN RATIO 1.04; CALCIUM 7.9 mg/dl (8.4-10.2); CREATININE 1.64 mg/dl (0.44-1.00); HDL CHOLESTEROL 11 mg/dl (33-92); MAGNESIUM 1.6 mg/dl (1.7-2.5); POTASSIUM 3.8 mmol/L (3.5-5.1); TOTAL PROTEIN 4.7 g/dl (6.1-8.1); TRIGLYCERIDES 76 mg/dl (0-149)
[2017-03-12 07:08] LABS: CHOLESTEROL < 50 mg/dl (100-200)
[2017-03-12 07:11] LABS: INR 1.47; PROTIME 17.9 Sec (12.2-14.2); PT RATIO 1.4
[2017-03-12 08:17] LABS: ANISOCYTOSIS 1+ (0-0); EOSINOPHILS % (M) 2 % (0-7); MONOCYTES % (M) 3 % (0-11); PLATELET ESTIMATE DECREASED; POIKILOCYTOSIS 2+ (0-0); POLYCHROMASIA 3+ (0-0); REACTIVE LYMPHOCYTES% (M) 2 % (0-0)
[2017-03-12] MEDS: LAMOTRIGINE 25 MG TAB PO SCH (08:39)
[2017-03-12] MEDS: POTASSIUM CHLORIDE (SR) 10 MEQ TAB PO SCH (08:40)
[2017-03-12] MEDS: CITALOPRAM 20 MG TAB PO SCH (08:40)
[2017-03-12] MEDS: BUSPIRONE 10 MG TAB PO SCH ×2 (08:41→22:20)
[2017-03-12] MEDS: BALSAM PERU/CASTOR OIL 60 GM TUBE TOP SCH ×2 (08:42→22:21)
[2017-03-12] MEDS: CEFEPIME HCL 0.5 GM in SOD CHLORIDE 0.9% 100 ML IVPB SCH (08:45)
[2017-03-12] MEDS ORDERED: GLUCOSE GEL 15 GRAM TUBE BUCCAL PRN (11:00)
[2017-03-12] MEDS ORDERED: GLUCAGON 1 MG INJ IM PRN (11:00)
[2017-03-12] MEDS ORDERED: GLUCOSE GEL 15 GRAM TUBE PO PRN ×2 (11:00)
[2017-03-12] MEDS ORDERED: DEXTROSE 50% 50 ML SYRINGE IV PRN ×2 (11:00)
[2017-03-12] MEDS: INSULIN ASPART [NOVOLOG] 3 ML PEN SC SCH ×3 (12:00→21:00)
[2017-03-12] MEDS: ALBUTEROL/IPRATROPIUM (NEB) 3 ML AMP NEB PRN ×2 (14:03→20:38)
--- NOTE | 2017-03-12 15:16 | CONS ---
Date/Time of Note Date/Time of Note DATE: 03/12/17 TIME: 15:14 Consult Date/Type/Reason Admit Date/Time Mar 10, 2017 at 20:32 Initial Consult Date 03/11/17 Type of Consultation: cardiology Ordering Provider: MIRI CRUZ MD Subjective cardiology follow up note: S: D/W STAFF and rhythm was reviewed. pt remains in AFIB but HR is under good control pt also with a short run of NSVT. no chest pain or pressure she still has sob and cough. O; General: no acute distress HEENT: NC/AT. pupils are equal. round. NECK: NO JVD. no stridor. CV: irregularly irregular. systolic murmur; no gallop or rubs. PULM: no wheezing . + b/l rhonchi. chest: s/p port on right chest. GI: SOFT, NT, ND, no rebound or guarding Extremity: + B/L LE edema but improved. no clubbing. neuro: awake and alert, OX3. Psych: calm and pleasant rectal: deferred : deferred ECG reviewed Afib incomplete LBBB Echo reviewed; 1. There is mild enlargement of left atrium. 2. There is mild enlargement of right atrium. 3. Normal left ventricular systolic function. Normal left ventricular cavity size. Normal left ventricular wall thickness. Ejection fraction is visually estimated at 55 %. Tissue Doppler/Mitral Doppler indices are indeterminate in this study due to the presence of. 4. Mitral valve leaflets appear mildly thickened. Mild mitral annular calcification. Moderate mitral valve regurgitation. 5. No hemodynamically significant aortic stenosis by doppler. Aortic cusps appear mildly calcified. Trace aortic valve regurgitation. 6. Normal appearance of the tricuspid valve. Estimated peak PA systolic pressure 68 mmHg. There is moderate to severe tricuspid regurgitation. 7. Dilated IVC without respiratory collapse consistent with elevated right atrial pressure. CXR personally reviewed: 1. Large bilateral pleural effusion with compressive atelectasis of the both lower lobes. 2. Moderate cardiomegaly with pulmonary venous congestion. Status post CABG. Objective Vital Signs Date Time Temp Pulse Resp B/P Pulse Ox O2 Delivery O2 Flow Rate FiO2 03/12/17 14:03 87 22 94 Nasal Cannula 2.0 03/12/17 11:52 97.6 124/64 03/11/17 02:05 31 Intake and Output 03/11/17 03/11/17 03/12/17 15:00 23:00 07:00 Intake Total 797.500 ml 340 ml 300 ml Output Total 725 ml 365 ml 1100 ml Balance 72.500 ml -25 ml -800 ml Results/Medications Result Diagram: 03/12/17 0542 03/12/17 0542 Results 24 hrs Laboratory Tests Test 03/12/17 05:42 03/12/17 07:54 03/12/17 11:57 White Blood Count 6.1 # Red Blood Count 2.21 L Hemoglobin 7.1 L Hematocrit 22.0 L Mean Corpuscular Volume 99.5 Mean Corpuscular Hemoglobin 32.1 Mean Corpuscular Hemoglobin Concent 32.3 Red Cell Distribution Width 17.0 H Platelet Count 91 #L Mean Platelet Volume 10.6 H Neutrophils % Segmented Neutrophils % (Manual) 68 Band Neutrophils % (Manual) 2 Lymphocytes % Lymphocytes % (Manual) 23 Reactive Lymphocytes % (Manual) 2 H Monocytes % Monocytes % (Manual) 3 Eosinophils % Eosinophils % (Manual) 2 Basophils % Nucleated Red Blood Cells % 0.0 Neutrophils # Neutrophils # (Manual) 4.2 Band Neutrophils # 0.1 Absolute Lymphocytes (Manual) 1.4 Lymphocytes # Reactive Lymphocytes # 0.1 H Monocytes # Absolute Monocytes (Manual) 0.1 L Eosinophils # Basophils # Nucleated Red Blood Cells # Platelet Estimate DECREASED Polychromasia 3+ Poikilocytosis 2+ Anisocytosis 1+ Prothrombin Time 17.9 H Prothrombin Time Ratio 1.4 INR International Normalized Ratio 1.47 Sodium Level 145 H Potassium Level 3.8 Chloride Level 108 Carbon Dioxide Level 29 Anion Gap 12 Blood Urea Nitrogen 30 H Creatinine 1.64 H Glucose Level 59 #L Calcium Level 7.9 L Magnesium Level 1.6 L Total Bilirubin 0.0 L Direct Bilirubin 0.00 Indirect Bilirubin 0.0 Aspartate Amino Transf (AST/SGOT) 13 L Alanine Aminotransferase (ALT/SGPT) 33 Alkaline Phosphatase 80 B-Type Natriuretic Peptide 18924 H Total Protein 4.7 L Albumin 2.4 L Globulin 2.30 Albumin/Globulin Ratio 1.04 Triglycerides Level 76 Cholesterol Level < 50 L LDL Cholesterol, Calculated HDL Cholesterol 11 L Cholesterol/HDL Ratio Thyroid Stimulating Hormone (TSH) 4.410 Free Thyroxine 1.05 Digoxin Level < 0.4 L Bedside Glucose 70 87 Medications Current Medications Ondansetron HCl (Zofran Inj) 4 mg Q6H PRN IV NAUSEA AND/OR VOMITING; Start at 23:30 Nitroglycerin (Nitroglycerin (Sl Tab) 0.4 Mg) 1 tab Q5M PRN SL CHEST PAIN; Start 03/10/17 at 23:30 Acetaminophen (Tylenol Liquid) 650 mg Q6H PRN PO PAIN LEVEL 1-3 OR FEVER; Start 03/10/17 at 23:30 Apixaban (Eliquis) 2.5 mg BID PO Last administered on 03/11/17 08:55; Admin Dose 2.5 MG; Start 03/11/17 at 09:00; Status Future Hold Buspirone HCl (Buspar) 10 mg BID PO Last administered on 03/12/17 08:41; Admin Dose 10 MG; Start 03/11/17 at 09:00 Citalopram Hydrobromide (Celexa) 20 mg DAILY PO Last administered on 08:40; Admin Dose 20 MG; Start 03/11/17 at 09:00 Lamotrigine (Lamictal) 25 mg DAILY PO Last administered on 03/12/17 08:39; Admin Dose 25 MG; Start 03/11/17 at 09:00 Mirtazapine (Remeron) 7.5 mg HS PO Last administered on 03/11/17 22:27; Admin Dose 7.5 MG; Start 03/11/17 at 21:00 Potassium Chloride (Klor-Con 10) 10 meq DAILY PO Last administered on 08:40; Admin Dose 10 MEQ; Start 03/11/17 at 09:00 Miscellaneous Information (Pending [facility] Order For Wound Care) This patient buitrago... PRN PRN XX WOUND CARE; Start 03/11/17 at 01:30 Diagnostic Test (Pha) (Accu-Chek) 1 ea 02 XX ; Start 03/13/17 at 02:00 Miscellaneous Information 1 ea NOTE XX ; Start 03/12/17 at 11:00 Glucose (Glutose) 15 gm Q15M PRN PO DECREASED GLUCOSE; Start 03/12/17 at 11:00 Glucose (Glutose) 22.5 gm Q15M PRN PO DECREASED GLUCOSE; Start 03/12/17 at 11: 00 Dextrose (D50w Syringe) 25 ml Q15M PRN IV DECREASED GLUCOSE; Start 03/12/17 at 11:00 Dextrose (D50w Syringe) 50 ml Q15M PRN IV DECREASED GLUCOSE; Start 03/12/17 at 11:00 Glucagon (Glucagen) 1 mg Q15M PRN IM DECREASED GLUCOSE; Start 03/12/17 at 11: 00 Glucose (Glutose) 15 gm Q15M PRN BUCCAL DECREASED GLUCOSE; Start 03/12/17 at 11:00 Assessment/Plan Chief Complaint/Hosp Course 1. Afib: chronic: with RVR on admission, but HR is better now 2. s/p shock: probably septic : BP has improved now 3. CHF: acute on chronic: due to diastolic heart failure 4. pulm HTN 5. hx HTN: now hypotensive 6. large pleural effusion 7. hx CAD 8. Hx CABG 9. hx Bipolar d/o 10. anemia 11. CKD 12. History of most likely multiple myeloma: Patient says that she is being followed as an outpatient by her oncologist which does not remember the name of Recommendations: lorena is on hold on anticipation for thoracentesis. Dr Billingsley was consulted for pulm eval. Her blood pressure medication is on hold for now. We will consider addition of digoxin if needed for the heart rate control for now. Antibiotic management will be deferred to the internal medicine team. We will correct electrolytes as needed basis. dec IV lasix due to worsening renal fx. Nutritional support to be continued as well. CODE STATUS is DNR. Thank you for his referral. I will continue to follow along with you. Rut Jerome MD [facility] Problems: RUT JEROME MD Mar 12, 2017 15:16
--- NOTE | 2017-03-12 16:55 | PN ---
Date/Time of Note Date/Time of Note DATE: 03/12/17 TIME: 16:53 Assessment/Plan VTE Prophylaxis VTE Prophylaxis Intervention: other Lines/Catheters IV Catheter Type (from Nrsg): port-a-cath Urinary Cath still in place: Yes Reason Cath still needed: urinary retention Assessment/Plan Chief Complaint/Hosp Course 76 yo female who presents with permanent atrial fibrillation who presented with acute diastolic CHF exacerbation and A Fib with RVR Acute diastolic CHF exacerbation:- - IV lasix to euvolemia, though held per Dr Jerome. Thoracentesis is reasonable , though seems like these effusions are from CHF not pneumonia, defer Permanent A Fib: - Rate adequately controlled - 25 Toprol daily, home med - Cont Eliquis, home med Discharge when euvolemic and nonhypoxic DNR/DNI, pending hospice Problems: Subjective 24 Hr Interval Summary Free Text/Dictation Still SOB but improving with volume removal Mild cough Dr eJrome has held diuretics Exam/Review of Systems Vital Signs Vitals Vital Signs Date Time Temp Pulse Resp B/P Pulse Ox O2 Delivery O2 Flow Rate FiO2 03/12/17 16:06 91 03/12/17 15:47 98.0 20 118/56 98 03/12/17 14:03 Nasal Cannula 2.0 03/11/17 02:05 31 Intake and Output 03/11/17 03/11/17 03/12/17 15:00 23:00 07:00 Intake Total 797.500 ml 340 ml 300 ml Output Total 725 ml 365 ml 1100 ml Balance 72.500 ml -25 ml -800 ml Exam Alert, well appearing +++ JVD Lungs dull at bases Irreg regular rate No peirpheral edame Results Result Diagram: 03/12/17 0542 03/12/17 0542 Results 24 hrs Laboratory Tests Test 03/12/17 05:42 03/12/17 07:54 03/12/17 11:57 White Blood Count 6.1 # Red Blood Count 2.21 L Hemoglobin 7.1 L Hematocrit 22.0 L Mean Corpuscular Volume 99.5 Mean Corpuscular Hemoglobin 32.1 Mean Corpuscular Hemoglobin Concent 32.3 Red Cell Distribution Width 17.0 H Platelet Count 91 #L Mean Platelet Volume 10.6 H Neutrophils % Segmented Neutrophils % (Manual) 68 Band Neutrophils % (Manual) 2 Lymphocytes % Lymphocytes % (Manual) 23 Reactive Lymphocytes % (Manual) 2 H Monocytes % Monocytes % (Manual) 3 Eosinophils % Eosinophils % (Manual) 2 Basophils % Nucleated Red Blood Cells % 0.0 Neutrophils # Neutrophils # (Manual) 4.2 Band Neutrophils # 0.1 Absolute Lymphocytes (Manual) 1.4 Lymphocytes # Reactive Lymphocytes # 0.1 H Monocytes # Absolute Monocytes (Manual) 0.1 L Eosinophils # Basophils # Nucleated Red Blood Cells # Platelet Estimate DECREASED Polychromasia 3+ Poikilocytosis 2+ Anisocytosis 1+ Prothrombin Time 17.9 H Prothrombin Time Ratio 1.4 INR International Normalized Ratio 1.47 Sodium Level 145 H Potassium Level 3.8 Chloride Level 108 Carbon Dioxide Level 29 Anion Gap 12 Blood Urea Nitrogen 30 H Creatinine 1.64 H Glucose Level 59 #L Calcium Level 7.9 L Magnesium Level 1.6 L Total Bilirubin 0.0 L Direct Bilirubin 0.00 Indirect Bilirubin 0.0 Aspartate Amino Transf (AST/SGOT) 13 L Alanine Aminotransferase (ALT/SGPT) 33 Alkaline Phosphatase 80 B-Type Natriuretic Peptide 85353 H Total Protein 4.7 L Albumin 2.4 L Globulin 2.30 Albumin/Globulin Ratio 1.04 Triglycerides Level 76 Cholesterol Level < 50 L LDL Cholesterol, Calculated HDL Cholesterol 11 L Cholesterol/HDL Ratio Thyroid Stimulating Hormone (TSH) 4.410 Free Thyroxine 1.05 Digoxin Level < 0.4 L Bedside Glucose 70 87 Medications Medications Current Medications Ondansetron HCl (Zofran Inj) 4 mg Q6H PRN IV NAUSEA AND/OR VOMITING; Start at 23:30 Nitroglycerin (Nitroglycerin (Sl Tab) 0.4 Mg) 1 tab Q5M PRN SL CHEST PAIN; Start 03/10/17 at 23:30 Acetaminophen (Tylenol Liquid) 650 mg Q6H PRN PO PAIN LEVEL 1-3 OR FEVER; Start 03/10/17 at 23:30 Apixaban (Eliquis) 2.5 mg BID PO Last administered on 03/11/17 08:55; Admin Dose 2.5 MG; Start 03/11/17 at 09:00; Status Future Hold Buspirone HCl (Buspar) 10 mg BID PO Last administered on 03/12/17 08:41; Admin Dose 10 MG; Start 03/11/17 at 09:00 Citalopram Hydrobromide (Celexa) 20 mg DAILY PO Last administered on 08:40; Admin Dose 20 MG; Start 03/11/17 at 09:00 Lamotrigine (Lamictal) 25 mg DAILY PO Last administered on 03/12/17 08:39; Admin Dose 25 MG; Start 03/11/17 at 09:00 Mirtazapine (Remeron) 7.5 mg HS PO Last administered on 03/11/17 22:27; Admin Dose 7.5 MG; Start 03/11/17 at 21:00 Potassium Chloride (Klor-Con 10) 10 meq DAILY PO Last administered on 08:40; Admin Dose 10 MEQ; Start 03/11/17 at 09:00 Miscellaneous Information [facility] This patient buitrago... PRN PRN XX WOUND CARE; Start 03/11/17 at 01:30 Diagnostic Test (Pha) (Accu-Chek) 1 ea 02 XX ; Start 03/13/17 at 02:00 Miscellaneous Information 1 ea NOTE XX ; Start 03/12/17 at 11:00 Glucose (Glutose) 15 gm Q15M PRN PO DECREASED GLUCOSE; Start 03/12/17 at 11:00 Glucose (Glutose) 22.5 gm Q15M PRN PO DECREASED GLUCOSE; Start 03/12/17 at 11: 00 Dextrose (D50w Syringe) 25 ml Q15M PRN IV DECREASED GLUCOSE; Start 03/12/17 at 11:00 Dextrose (D50w Syringe) 50 ml Q15M PRN IV DECREASED GLUCOSE; Start 03/12/17 at 11:00 Glucagon (Glucagen) 1 mg Q15M PRN IM DECREASED GLUCOSE; Start 03/12/17 at 11: 00 Glucose (Glutose) 15 gm Q15M PRN BUCCAL DECREASED GLUCOSE; Start 03/12/17 at 11:00 Furosemide (Lasix) 40 mg DAILY IV ; Start 03/13/17 at 09:00 GIOVANNI HESTER MD Mar 12, 2017 16:55
--- NOTE | 2017-03-12 17:28 | CONS ---
DATE OF ADMISSION: 03/10/2017 DATE OF CONSULTATION: REASON FOR CONSULTATION: Shortness of breath. Thank you, for this consultation. 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 The patient initially was fo und to be hypotensive with leukocytosis. Chest x-ray demonstrates large bilateral pleural effusions . PAST MEDICAL HISTORY: As above. MEDICATIONS: Per chart. ALLERGIES: NONE. SOCIAL HISTORY: Nonsmoker, no alcohol, no history of drug use. FAMILY HISTORY: Noncontributory. SYSTEMS REVIEW: A 12-point review of systems was negative other than that mentioned above. PHYSICAL EXAMINATION: GENERAL: Elderly-appearing lady in no distress at present. VITAL SIGNS: Currently afebrile, temperature 98, pulse is 90, blood pressure 118/56, O2 sat 96% on 2 liters nasal cannula. NECK: Supple. No JVD or lymphadenopathy. CARDIAC: S1, S2, no added sounds or murmurs. CHEST: Diminished air entry bilaterally. ABDOMEN: Mildly distended, soft. EXTREMITIES: No cyanosis, clubbing or edema. NEUROLOGIC: Generalized weakness. IMAGING: Chest x-ray shows large bilateral pleural effusions. LABORATORY DATA: White count 6.1, hemoglobin 7.1, platelets of 91. INR was 1.47, BUN 30, creatinin e 1.64. BNP 40770. Urinalysis unremarkable. IMPRESSION AND PLAN: 1. Hypoxemic respiratory distress, likely secondary to volume overload from atrial fibrillation and rapid ventricular rate with underlying preserved ejection fraction. 2. Moderate pulmonary hypertension with moderate to severe tricuspid regurgitation. 3. History of chronic obstructive pulmonary disease. 4. History of bipolar disorder. 5. History of being on hospice. PLAN: 1. Therapeutic and diagnostic thoracentesis. 2. Continue Lasix as tolerated. 3. Continue site meds. 4. Reestablish hospice status and transfer to hospice services as an outpatient. Dictated By: MOON DUMONT MD SV/NTS Conf#: [id number] DID#: [id number] CC: MIRI CRUZ MD;*End*
[2017-03-12] MEDS ORDERED: VANCOMYCIN 750 MG in DEXTROSE 5% 150 ML IVPB SCH (22:00)
[2017-03-12] MEDS: MIRTAZAPINE 15 MG TAB PO SCH (22:21)
[2017-03-13] VITALS (12 sets, daily range): BP systolic 102–116; BP diastolic 55–63; PULSE 96–142; RESP 16–20
[2017-03-13] MEDS: ACCU-CHEK XX SCH (02:00)
[2017-03-13] MEDS: ACETAMINOPHEN 650MG/20.3ML CUP PO PRN ×2 (02:39→20:33)
[2017-03-13] MEDS: ALBUTEROL/IPRATROPIUM (NEB) 3 ML AMP NEB PRN ×2 (02:42→09:47)
[2017-03-13 07:11] LABS: BASOPHILS % 0.1 % (0.0-2.0); EOSINOPHILS # 0.1 10^3/ul (0.0-0.5); EOSINOPHILS % 0.7 % (0.0-7.0); HEMATOCRIT 23.3 % (37.0-47.0); HEMOGLOBIN 7.3 g/dl (12.0-16.0); LYMPHOCYTES % 29.4 % (15.0-51.0); MEAN CORPUSCULAR HEMOGLOBIN 31.6 pg (29.0-33.0); MEAN CORPUSCULAR HGB CONC 31.3 g/dl (32.0-37.0); MEAN CORPUSCULAR VOLUME 100.9 fl (82.0-101.0); MEAN PLATELET VOLUME 12.1 fl (7.4-10.4); MONOCYTE # 0.4 10^3/ul (0.3-0.9); MONOCYTES % 6.4 % (0.0-11.0); NEUTROPHIL # 4.3 10^3/ul (1.6-7.5); NEUTROPHILS % 62.8 % (39.0-77.0); PLATELET COUNT 102 10^3/UL (140-415); RED BLOOD COUNT 2.31 10^6/ul (4.20-5.40); RED CELL DISTRIBUTION WIDTH 17.1 % (11.5-14.5); WHITE BLOOD COUNT 6.8 10^3/ul (4.8-10.8)
[2017-03-13 07:19] LABS: POSITIVE DIFF @See below
[2017-03-13 07:34] LABS: ALBUMIN 2.3 g/dl (3.3-4.9); CALCIUM 7.9 mg/dl (8.4-10.2); CREATININE 1.6 mg/dl (0.44-1.00); MAGNESIUM 1.7 mg/dl (1.7-2.5); POTASSIUM 3.9 mmol/L (3.5-5.1); TOTAL PROTEIN 4.6 g/dl (6.1-8.1)
[2017-03-13 07:52] LABS: INR 1.29; PROTIME 16.2 Sec (12.2-14.2); PT RATIO 1.3
[2017-03-13] MEDS: INSULIN ASPART [NOVOLOG] 3 ML PEN SC SCH ×4 (08:00→20:37)
--- NOTE | 2017-03-13 08:39 | CONS ---
Date/Time of Note Date/Time of Note DATE: 03/13/17 TIME: 08:38 Consult Date/Type/Reason Admit Date/Time Mar 10, 2017 at 20:32 Initial Consult Date 03/11/17 Type of Consultation: cardiology Ordering Provider: MIRI CRUZ MD Subjective cardiology follow up note: S: D/W STAFF and rhythm was reviewed. pt remains in AFIB but HR is under fair control pt also with a short run of NSVT. no chest pain or pressure she still has sob and cough. O; General: no acute distress HEENT: NC/AT. pupils are equal. round. NECK: NO JVD. no stridor. CV: irregularly irregular. systolic murmur; no gallop or rubs. PULM: no wheezing . + b/l rhonchi. chest: s/p port on right chest. GI: SOFT, NT, ND, no rebound or guarding Extremity: + trace B/L LE edema . no clubbing. neuro: awake and alert, OX3. Psych: calm and pleasant rectal: deferred : deferred ECG reviewed Afib incomplete LBBB Echo reviewed; 1. There is mild enlargement of left atrium. 2. There is mild enlargement of right atrium. 3. Normal left ventricular systolic function. Normal left ventricular cavity size. Normal left ventricular wall thickness. Ejection fraction is visually estimated at 55 %. Tissue Doppler/Mitral Doppler indices are indeterminate in this study due to the presence of. 4. Mitral valve leaflets appear mildly thickened. Mild mitral annular calcification. Moderate mitral valve regurgitation. 5. No hemodynamically significant aortic stenosis by doppler. Aortic cusps appear mildly calcified. Trace aortic valve regurgitation. 6. Normal appearance of the tricuspid valve. Estimated peak PA systolic pressure 68 mmHg. There is moderate to severe tricuspid regurgitation. 7. Dilated IVC without respiratory collapse consistent with elevated right atrial pressure. CXR personally reviewed: 1. Large bilateral pleural effusion with compressive atelectasis of the both lower lobes. 2. Moderate cardiomegaly with pulmonary venous congestion. Status post CABG. Objective Vital Signs Date Time Temp Pulse Resp B/P Pulse Ox O2 Delivery O2 Flow Rate FiO2 03/13/17 08:06 97.8 71 20 106/55 99 03/13/17 02:42 Nasal Cannula 2.0 03/11/17 02:05 31 Intake and Output 03/12/17 03/12/17 03/13/17 15:00 23:00 07:00 Intake Total 800 ml Output Total 1700 ml Balance -900 ml Results/Medications Result Diagram: 03/13/17 0613 03/13/17 0613 Results 24 hrs Laboratory Tests Test 03/12/17 11:57 03/12/17 16:52 03/12/17 21:56 03/13/17 06:13 Bedside Glucose 87 136 106 White Blood Count 6.8 Red Blood Count 2.31 L Hemoglobin 7.3 L Hematocrit 23.3 L Mean Corpuscular Volume 100.9 Mean Corpuscular Hemoglobin 31.6 Mean Corpuscular Hemoglobin Concent 31.3 L Red Cell Distribution Width 17.1 H Platelet Count 102 L Mean Platelet Volume 12.1 H Neutrophils % 62.8 Lymphocytes % 29.4 Monocytes % 6.4 Eosinophils % 0.7 Basophils % 0.1 Nucleated Red Blood Cells % 0.0 Neutrophils # 4.3 Lymphocytes # 2.0 Monocytes # 0.4 Eosinophils # 0.1 Basophils # 0.0 Nucleated Red Blood Cells # 0.0 Prothrombin Time 16.2 H Prothrombin Time Ratio 1.3 INR International Normalized Ratio 1.29 Sodium Level 144 Potassium Level 3.9 Chloride Level 108 Carbon Dioxide Level 27 Anion Gap 13 Blood Urea Nitrogen 30 H Creatinine 1.60 H Glucose Level 73 Calcium Level 7.9 L Magnesium Level 1.7 Total Bilirubin 0.0 L Direct Bilirubin 0.00 Indirect Bilirubin 0.0 Aspartate Amino Transf (AST/SGOT) 14 L Alanine Aminotransferase (ALT/SGPT) 31 Alkaline Phosphatase 82 Total Protein 4.6 L Albumin 2.3 L Globulin 2.30 Albumin/Globulin Ratio 1.00 Test 03/13/17 07:52 Bedside Glucose 105 Medications Current Medications Ondansetron HCl (Zofran Inj) 4 mg Q6H PRN IV NAUSEA AND/OR VOMITING; Start at 23:30 Nitroglycerin (Nitroglycerin (Sl Tab) 0.4 Mg) 1 tab Q5M PRN SL CHEST PAIN; Start 03/10/17 at 23:30 Acetaminophen (Tylenol Liquid) 650 mg Q6H PRN PO PAIN LEVEL 1-3 OR FEVER Last administered on 03/13/17t 02:39; Admin Dose 650 MG; Start 03/10/17 at 23:30 Apixaban (Eliquis) 2.5 mg BID PO Last administered on 03/11/17 08:55; Admin Dose 2.5 MG; Start 03/11/17 at 09:00; Status Future Hold Buspirone HCl (Buspar) 10 mg BID PO Last administered on 03/12/17 22:20; Admin Dose 10 MG; Start 03/11/17 at 09:00 Citalopram Hydrobromide (Celexa) 20 mg DAILY PO Last administered on 08:40; Admin Dose 20 MG; Start 03/11/17 at 09:00 Lamotrigine (Lamictal) 25 mg DAILY PO Last administered on 03/12/17 08:39; Admin Dose 25 MG; Start 03/11/17 at 09:00 Mirtazapine (Remeron) 7.5 mg HS PO Last administered on 03/12/17 22:21; Admin Dose 7.5 MG; Start 03/11/17 at 21:00 Potassium Chloride (Klor-Con 10) 10 meq DAILY PO Last administered on 08:40; Admin Dose 10 MEQ; Start 03/11/17 at 09:00 Miscellaneous Information (Pending Santyl Order For Wound Care) This patient buitrago... PRN PRN XX WOUND CARE; Start 03/11/17 at 01:30 Diagnostic Test (Pha) (Accu-Chek) 1 ea 02 XX ; Start 03/13/17 at 02:00 Miscellaneous Information 1 ea NOTE XX ; Start 03/12/17 at 11:00 Glucose (Glutose) 15 gm Q15M PRN PO DECREASED GLUCOSE; Start 03/12/17 at 11:00 Glucose (Glutose) 22.5 gm Q15M PRN PO DECREASED GLUCOSE; Start 03/12/17 at 11: 00 Dextrose (D50w Syringe) 25 ml Q15M PRN IV DECREASED GLUCOSE; Start 03/12/17 at 11:00 Dextrose (D50w Syringe) 50 ml Q15M PRN IV DECREASED GLUCOSE; Start 03/12/17 at 11:00 Glucagon (Glucagen) 1 mg Q15M PRN IM DECREASED GLUCOSE; Start 03/12/17 at 11: 00 Glucose (Glutose) 15 gm Q15M PRN BUCCAL DECREASED GLUCOSE; Start 03/12/17 at 11:00 Furosemide (Lasix) 40 mg DAILY IV ; Start 03/13/17 at 09:00 Assessment/Plan Chief Complaint/Hosp Course 1. Afib: chronic: with RVR on admission, but HR is better now 2. s/p shock: probably septic : BP has improved now 3. CHF: acute on chronic: due to diastolic heart failure 4. pulm HTN 5. hx HTN: now hypotensive 6. large pleural effusion 7. hx CAD 8. Hx CABG 9. hx Bipolar d/o 10. anemia 11. CKD 12. History of most likely multiple myeloma: Patient says that she is being followed as an outpatient by her oncologist which does not remember the name of Recommendations: eliquis is on hold on anticipation for thoracentesis. Dr Billingsley was consulted for pulm eval. Her blood pressure medication is on hold for now. We will consider addition of digoxin if needed for the heart rate control for now. Antibiotic management will be deferred to the internal medicine team. We will correct electrolytes as needed basis. dc IV lasix due to worsening renal fx. will adjust tomorrow as needed Nutritional support to be continued as well. CODE STATUS is DNR. Thank you for his referral. I will continue to follow along with you. Rut Jerome MD [facility] Problems: RUT JEROME MD Mar 13, 2017 08:39
[2017-03-13] MEDS ORDERED: FUROSEMIDE 40 MG INJ IV SCH (09:00)
[2017-03-13] MEDS ORDERED: DIGOXIN 500 MCG INJ IV ONE (09:00)
[2017-03-13] MEDS: CITALOPRAM 20 MG TAB PO SCH (09:26)
[2017-03-13] MEDS: LAMOTRIGINE 25 MG TAB PO SCH (09:26)
[2017-03-13] MEDS: BUSPIRONE 10 MG TAB PO SCH ×2 (09:26→20:33)
[2017-03-13] MEDS: POTASSIUM CHLORIDE (SR) 10 MEQ TAB PO SCH (09:26)
[2017-03-13] MEDS: BALSAM PERU/CASTOR OIL 60 GM TUBE TOP SCH ×2 (09:34→20:35)
[2017-03-13] MEDS: ACETYLCYSTEINE 20% 4 ML VIAL NEB SCH ×3 (13:08→20:29)
[2017-03-13] MEDS: ALBUTEROL/IPRATROPIUM (NEB) 3 ML AMP HHN SCH ×3 (13:08→20:18)
--- NOTE | 2017-03-13 14:53 | CONS ---
Date/Time of Note Date/Time of Note DATE: 03/13/17 TIME: 14:51 Consult Date/Type/Reason Admit Date/Time Mar 10, 2017 at 20:32 Initial Consult Date 03/11/17 Type of Consultation: Pulmonary Ordering Provider: MIRI CRUZ MD Subjective Patient remains relatively stable. Continue supplemental O2. Productive cough. No fever no chills remains awake and alert. Thoracentesis pending. Objective Vital Signs Date Time Temp Pulse Resp B/P Pulse Ox O2 Delivery O2 Flow Rate FiO2 03/13/17 13:15 93 22 99 Nasal Cannula 2.0 03/13/17 12:04 98.0 108/57 03/11/17 02:05 31 Intake and Output 03/12/17 03/12/17 03/13/17 14:59 22:59 06:59 Intake Total 800 ml Output Total 1700 ml Balance -900 ml Exam PHYSICAL EXAMINATION: GENERAL: Elderly-appearing lady in no distress at present. VITAL SIGNS: As above NECK: Supple. No JVD or lymphadenopathy. CARDIAC: S1, S2, no added sounds or murmurs. CHEST: Diminished air entry bilaterally. ABDOMEN: Mildly distended, soft. EXTREMITIES: No cyanosis, clubbing or edema. NEUROLOGIC: Generalized weakness. Results/Medications Result Diagram: 03/13/17 0613 03/13/17 0613 Results 24 hrs Laboratory Tests Test 03/12/17 16:52 03/12/17 21:56 03/13/17 06:13 03/13/17 07:52 Bedside Glucose 136 106 105 White Blood Count 6.8 Red Blood Count 2.31 L Hemoglobin 7.3 L Hematocrit 23.3 L Mean Corpuscular Volume 100.9 Mean Corpuscular Hemoglobin 31.6 Mean Corpuscular Hemoglobin Concent 31.3 L Red Cell Distribution Width 17.1 H Platelet Count 102 L Mean Platelet Volume 12.1 H Neutrophils % 62.8 Lymphocytes % 29.4 Monocytes % 6.4 Eosinophils % 0.7 Basophils % 0.1 Nucleated Red Blood Cells % 0.0 Neutrophils # 4.3 Lymphocytes # 2.0 Monocytes # 0.4 Eosinophils # 0.1 Basophils # 0.0 Nucleated Red Blood Cells # 0.0 Prothrombin Time 16.2 H Prothrombin Time Ratio 1.3 INR International Normalized Ratio 1.29 Sodium Level 144 Potassium Level 3.9 Chloride Level 108 Carbon Dioxide Level 27 Anion Gap 13 Blood Urea Nitrogen 30 H Creatinine 1.60 H Glucose Level 73 Calcium Level 7.9 L Magnesium Level 1.7 Total Bilirubin 0.0 L Direct Bilirubin 0.00 Indirect Bilirubin 0.0 Aspartate Amino Transf (AST/SGOT) 14 L Alanine Aminotransferase (ALT/SGPT) 31 Alkaline Phosphatase 82 Total Protein 4.6 L Albumin 2.3 L Globulin 2.30 Albumin/Globulin Ratio 1.00 Test 03/13/17 12:15 Bedside Glucose 124 Medications Current Medications Ondansetron HCl (Zofran Inj) 4 mg Q6H PRN IV NAUSEA AND/OR VOMITING; Start at 23:30 Nitroglycerin (Nitroglycerin (Sl Tab) 0.4 Mg) 1 tab Q5M PRN SL CHEST PAIN; Start 03/10/17 at 23:30 Acetaminophen (Tylenol Liquid) 650 mg Q6H PRN PO PAIN LEVEL 1-3 OR FEVER Last administered on 03/13/17 02:39; Admin Dose 650 MG; Start 03/10/17 at 23:30 Apixaban (Eliquis) 2.5 mg BID PO Last administered on 03/11/17 08:55; Admin Dose 2.5 MG; Start 03/11/17 at 09:00; Status Future Hold Buspirone HCl (Buspar) 10 mg BID PO Last administered on 03/13/17 09:26; Admin Dose 10 MG; Start 03/11/17 at 09:00 Citalopram Hydrobromide (Celexa) 20 mg DAILY PO Last administered on 09:26; Admin Dose 20 MG; Start 03/11/17 at 09:00 Lamotrigine (Lamictal) 25 mg DAILY PO Last administered on 03/13/17 09:26; Admin Dose 25 MG; Start 03/11/17 at 09:00 Mirtazapine (Remeron) 7.5 mg HS PO Last administered on 03/12/17 22:21; Admin Dose 7.5 MG; Start 03/11/17 at 21:00 Potassium Chloride (Klor-Con 10) 10 meq DAILY PO Last administered on 09:26; Admin Dose 10 MEQ; Start 03/11/17 at 09:00 [facility] This patient buitrago... PRN PRN XX WOUND CARE; Start 03/11/17 at 01:30 Diagnostic Test (Pha) (Accu-Chek) 1 ea 02 XX ; Start 03/13/17 at 02:00 Miscellaneous Information 1 ea NOTE XX ; Start 03/12/17 at 11:00 Glucose (Glutose) 15 gm Q15M PRN PO DECREASED GLUCOSE; Start 03/12/17 at 11:00 Glucose (Glutose) 22.5 gm Q15M PRN PO DECREASED GLUCOSE; Start 03/12/17 at 11: 00 Dextrose (D50w Syringe) 25 ml Q15M PRN IV DECREASED GLUCOSE; Start 03/12/17 at 11:00 Dextrose (D50w Syringe) 50 ml Q15M PRN IV DECREASED GLUCOSE; Start 03/12/17 at 11:00 Glucagon (Glucagen) 1 mg Q15M PRN IM DECREASED GLUCOSE; Start 03/12/17 at 11: 00 Glucose (Glutose) 15 gm Q15M PRN BUCCAL DECREASED GLUCOSE; Start 03/12/17 at 11:00 Assessment/Plan Chief Complaint/Hosp Course IMPRESSION AND PLAN: 1. Hypoxemic respiratory distress, likely secondary to volume overload from atrial fibrillation and rapid ventricular rate with underlying preserved ejection fraction. 2. Moderate pulmonary hypertension with moderate to severe tricuspid regurgitation. 3. History of chronic obstructive pulmonary disease. 4. History of bipolar disorder. 5. Anemia questionable GI bleed versus chronic disease PLAN: 1. Therapeutic and diagnostic thoracentesis. Hopefully scheduled for today. 2. Continue Lasix as tolerated. 3. Monitor H&H 4. Reestablish hospice status and transfer to hospice services as an outpatient. Problems: MOON DUMONT MD, [facility] Mar 13, 2017 14:53
--- NOTE | 2017-03-13 15:05 | PN ---
Date/Time of Note Date/Time of Note DATE: 03/13/17 TIME: 15:04 Assessment/Plan VTE Prophylaxis VTE Prophylaxis Intervention: LMWH Lines/Catheters IV Catheter Type (from Nrs): Port-a-Cath Urinary Cath still in place: Yes Reason Cath still needed: urinary retention Assessment/Plan Chief Complaint/Hosp Course 76 yo female who presents with permanent atrial fibrillation who presented with acute diastolic CHF exacerbation and A Fib with RVR Acute diastolic CHF exacerbation:- - IV lasix to euvolemia, though held per Dr Jerome. Thoracentesis is reasonable , though seems like these effusions are from CHF not pneumonia, defer Permanent A Fib: - Rate adequately controlled - 25 Toprol daily, home med - Cont Eliquis, home med Discharge when euvolemic and nonhypoxic DNR/DNI, pending hospice Problems: Subjective 24 Hr Interval Summary Free Text/Dictation SOB somewhat improved, though still hypoxic No infectiosu symptoms aside from mild cough Exam/Review of Systems Vital Signs Vitals Vital Signs Date Time Temp Pulse Resp B/P Pulse Ox O2 Delivery O2 Flow Rate FiO2 03/13/17 13:15 93 22 99 Nasal Cannula 2.0 03/13/17 12:04 98.0 108/57 03/11/17 02:05 31 Intake and Output 03/12/17 03/12/17 03/13/17 15:00 23:00 07:00 Intake Total 800 ml Output Total 1700 ml Balance -900 ml Exam ++ JVD Lungs dull at bases Mild rhocnhi Nontoxic Appears well Breathign comfortably nonlabored No edema Results Result Diagram: 03/13/17 0613 03/13/17 0613 Results 24 hrs Laboratory Tests Test 03/12/17 16:52 03/12/17 21:56 03/13/17 06:13 03/13/17 07:52 Bedside Glucose 136 106 105 White Blood Count 6.8 Red Blood Count 2.31 L Hemoglobin 7.3 L Hematocrit 23.3 L Mean Corpuscular Volume 100.9 Mean Corpuscular Hemoglobin 31.6 Mean Corpuscular Hemoglobin Concent 31.3 L Red Cell Distribution Width 17.1 H Platelet Count 102 L Mean Platelet Volume 12.1 H Neutrophils % 62.8 Lymphocytes % 29.4 Monocytes % 6.4 Eosinophils % 0.7 Basophils % 0.1 Nucleated Red Blood Cells % 0.0 Neutrophils # 4.3 Lymphocytes # 2.0 Monocytes # 0.4 Eosinophils # 0.1 Basophils # 0.0 Nucleated Red Blood Cells # 0.0 Prothrombin Time 16.2 H Prothrombin Time Ratio 1.3 INR International Normalized Ratio 1.29 Sodium Level 144 Potassium Level 3.9 Chloride Level 108 Carbon Dioxide Level 27 Anion Gap 13 Blood Urea Nitrogen 30 H Creatinine 1.60 H Glucose Level 73 Calcium Level 7.9 L Magnesium Level 1.7 Total Bilirubin 0.0 L Direct Bilirubin 0.00 Indirect Bilirubin 0.0 Aspartate Amino Transf (AST/SGOT) 14 L Alanine Aminotransferase (ALT/SGPT) 31 Alkaline Phosphatase 82 Total Protein 4.6 L Albumin 2.3 L Globulin 2.30 Albumin/Globulin Ratio 1.00 Test 03/13/17 12:15 Bedside Glucose 124 Medications Medications Current Medications Ondansetron HCl (Zofran Inj) 4 mg Q6H PRN IV NAUSEA AND/OR VOMITING; Start at 23:30 Nitroglycerin (Nitroglycerin (Sl Tab) 0.4 Mg) 1 tab Q5M PRN SL CHEST PAIN; Start 03/10/17 at 23:30 Acetaminophen (Tylenol Liquid) 650 mg Q6H PRN PO PAIN LEVEL 1-3 OR FEVER Last administered on 03/13/17 02:39; Admin Dose 650 MG; Start 03/10/17 at 23:30 Apixaban (Eliquis) 2.5 mg BID PO Last administered on 03/11/17 08:55; Admin Dose 2.5 MG; Start 03/11/17 at 09:00; Status Future Hold Buspirone HCl (Buspar) 10 mg BID PO Last administered on 03/13/17 09:26; Admin Dose 10 MG; Start 03/11/17 at 09:00 Citalopram Hydrobromide (Celexa) 20 mg DAILY PO Last administered on 09:26; Admin Dose 20 MG; Start 03/11/17 at 09:00 Lamotrigine (Lamictal) 25 mg DAILY PO Last administered on 03/13/17 09:26; Admin Dose 25 MG; Start 03/11/17 at 09:00 Mirtazapine (Remeron) 7.5 mg HS PO Last administered on 03/12/17 22:21; Admin Dose 7.5 MG; Start 03/11/17 at 21:00 Potassium Chloride (Klor-Con 10) 10 meq DAILY PO Last administered on t 09:26; Admin Dose 10 MEQ; Start 03/11/17 at 09:00 [facility] This patient buitrago... PRN PRN XX WOUND CARE; Start 03/11/17 at 01:30 Diagnostic Test (Pha) (Accu-Chek) 1 ea 02 XX ; Start 03/13/17 at 02:00 Miscellaneous Information 1 ea NOTE XX ; Start 03/12/17 at 11:00 Glucose (Glutose) 15 gm Q15M PRN PO DECREASED GLUCOSE; Start 03/12/17 at 11:00 Glucose (Glutose) 22.5 gm Q15M PRN PO DECREASED GLUCOSE; Start 03/12/17 at 11: 00 Dextrose (D50w Syringe) 25 ml Q15M PRN IV DECREASED GLUCOSE; Start 03/12/17 at 11:00 Dextrose (D50w Syringe) 50 ml Q15M PRN IV DECREASED GLUCOSE; Start 03/12/17 at 11:00 Glucagon (Glucagen) 1 mg Q15M PRN IM DECREASED GLUCOSE; Start 03/12/17 at 11: 00 Glucose (Glutose) 15 gm Q15M PRN BUCCAL DECREASED GLUCOSE; Start 03/12/17 at 11:00 GIOVANNI HESTER MD Mar 13, 2017 15:05
[2017-03-13] MEDS ORDERED: FUROSEMIDE 40 MG INJ IV ONE (17:30)
[2017-03-13] MEDS: MIRTAZAPINE 15 MG TAB PO SCH (20:33)
[2017-03-14] VITALS (10 sets, daily range): BP systolic 99–146; BP diastolic 52–67; PULSE 78–106; RESP 16–17
[2017-03-14] MEDS: ACCU-CHEK XX SCH (02:52)
[2017-03-14 07:31] LABS: ABNORMAL IP MESSAGE 1; BASOPHILS % 0.3 % (0.0-2.0); EOSINOPHILS # 0.1 10^3/ul (0.0-0.5); HEMOGLOBIN 7.3 g/dl (12.0-16.0); LYMPHOCYTES # 1.9 10^3/ul (0.8-2.9); LYMPHOCYTES % 26.7 % (15.0-51.0); MEAN CORPUSCULAR HEMOGLOBIN 31.5 pg (29.0-33.0); MEAN CORPUSCULAR HGB CONC 31.7 g/dl (32.0-37.0); MEAN CORPUSCULAR VOLUME 99.1 fl (82.0-101.0); MONOCYTE # 0.5 10^3/ul (0.3-0.9); MONOCYTES % 7.2 % (0.0-11.0); NEUTROPHIL # 4.5 10^3/ul (1.6-7.5); NEUTROPHILS % 64.2 % (39.0-77.0); PLATELET COUNT 88 10^3/UL (140-415); RED BLOOD COUNT 2.32 10^6/ul (4.20-5.40); RED CELL DISTRIBUTION WIDTH 16.8 % (11.5-14.5)
[2017-03-14 07:37] LABS: POSITIVE DIFF @See below
[2017-03-14] MEDS: INSULIN ASPART [NOVOLOG] 3 ML PEN SC SCH ×4 (08:00→21:00)
[2017-03-14 08:07] LABS: ALBUMIN 2.1 g/dl (3.3-4.9); ALBUMIN/GLOBULIN RATIO 0.84; BILIRUBIN,INDIRECT 0.1 mg/dl (0-1.1); BILIRUBIN,TOTAL 0.1 mg/dl (0.2-1.3); CALCIUM 8.1 mg/dl (8.4-10.2); CREATININE 1.49 mg/dl (0.44-1.00); MAGNESIUM 1.6 mg/dl (1.7-2.5); TOTAL PROTEIN 4.6 g/dl (6.1-8.1)
[2017-03-14] MEDS: POTASSIUM CHLORIDE (SR) 10 MEQ TAB PO SCH (08:15)
[2017-03-14] MEDS: CITALOPRAM 20 MG TAB PO SCH (08:15)
[2017-03-14] MEDS: LAMOTRIGINE 25 MG TAB PO SCH (08:15)
[2017-03-14] MEDS: BUSPIRONE 10 MG TAB PO SCH ×2 (08:15→21:31)
[2017-03-14] MEDS: BALSAM PERU/CASTOR OIL 60 GM TUBE TOP SCH ×2 (08:18→21:36)
[2017-03-14] MEDS: ACETYLCYSTEINE 20% 4 ML VIAL NEB SCH ×4 (09:05→21:42)
[2017-03-14] MEDS: ALBUTEROL/IPRATROPIUM (NEB) 3 ML AMP HHN SCH ×5 (09:05→21:42)
--- NOTE | 2017-03-14 10:00 | CONS ---
Date/Time of Note Date/Time of Note DATE: 03/14/17 TIME: 09:57 Consult Date/Type/Reason Admit Date/Time Mar 10, 2017 at 20:32 Initial Consult Date 03/11/17 Type of Consultation: card Ordering Provider: IMRI CRUZ MD Subjective cardiology follow up note: S: D/W STAFF and rhythm was reviewed. pt remains in AFIB but HR is under fair control d/w daughter and Dr Billingsley no chest pain or pressure she still has sob and cough. O; General: no acute distress HEENT: NC/AT. pupils are equal. round. NECK: NO JVD. no stridor. CV: irregularly irregular. systolic murmur; no gallop or rubs. PULM: no wheezing . + b/l rhonchi. chest: s/p port on right chest. GI: SOFT, NT, ND, no rebound or guarding Extremity: + trace B/L LE edema . no clubbing. neuro: awake and alert, OX3. Psych: calm and pleasant rectal: deferred : deferred ECG reviewed Afib incomplete LBBB Echo reviewed; 1. There is mild enlargement of left atrium. 2. There is mild enlargement of right atrium. 3. Normal left ventricular systolic function. Normal left ventricular cavity size. Normal left ventricular wall thickness. Ejection fraction is visually estimated at 55 %. Tissue Doppler/Mitral Doppler indices are indeterminate in this study due to the presence of. 4. Mitral valve leaflets appear mildly thickened. Mild mitral annular calcification. Moderate mitral valve regurgitation. 5. No hemodynamically significant aortic stenosis by doppler. Aortic cusps appear mildly calcified. Trace aortic valve regurgitation. 6. Normal appearance of the tricuspid valve. Estimated peak PA systolic pressure 68 mmHg. There is moderate to severe tricuspid regurgitation. 7. Dilated IVC without respiratory collapse consistent with elevated right atrial pressure. CXR personally reviewed: 1. Large bilateral pleural effusion with compressive atelectasis of the both lower lobes. 2. Moderate cardiomegaly with pulmonary venous congestion. Status post CABG. Objective Vital Signs Date Time Temp Pulse Resp B/P Pulse Ox O2 Delivery O2 Flow Rate FiO2 03/14/17 08:08 78 03/14/17 07:57 97.9 17 146/60 97 03/14/17 02:08 2.0 03/13/17 20:33 Nasal Cannula 03/11/17 02:05 31 Intake and Output 11/29/17 11/29/17 11/30/17 15:00 23:00 07:00 Intake Total 800 ml Output Total 875 ml Balance -75 ml Results/Medications Result Diagram: 03/14/17 0656 03/14/17 0656 Results 24 hrs Laboratory Tests Test 03/13/17 12:15 03/13/17 17:39 03/13/17 20:36 03/14/17 06:56 Bedside Glucose 124 114 133 White Blood Count 7.0 Red Blood Count 2.32 L Hemoglobin 7.3 L Hematocrit 23.0 L Mean Corpuscular Volume 99.1 Mean Corpuscular Hemoglobin 31.5 Mean Corpuscular Hemoglobin Concent 31.7 L Red Cell Distribution Width 16.8 H Platelet Count 88 L Mean Platelet Volume 12.0 H Neutrophils % 64.2 Lymphocytes % 26.7 Monocytes % 7.2 Eosinophils % 1.0 Basophils % 0.3 Nucleated Red Blood Cells % 0.0 Neutrophils # 4.5 Lymphocytes # 1.9 Monocytes # 0.5 Eosinophils # 0.1 Basophils # 0.0 Nucleated Red Blood Cells # 0.0 Sodium Level 144 Potassium Level 4.0 Chloride Level 106 Carbon Dioxide Level 31 Anion Gap 11 Blood Urea Nitrogen 29 H Creatinine 1.49 H Glucose Level 67 L Calcium Level 8.1 L Magnesium Level 1.6 L Total Bilirubin 0.1 L Direct Bilirubin 0.00 Indirect Bilirubin 0.1 Aspartate Amino Transf (AST/SGOT) 15 Alanine Aminotransferase (ALT/SGPT) 33 Alkaline Phosphatase 78 B-Type Natriuretic Peptide 89135 H Total Protein 4.6 L Albumin 2.1 L Globulin 2.50 Albumin/Globulin Ratio 0.84 Test 03/14/17 08:13 Bedside Glucose 95 Medications Current Medications Ondansetron HCl (Zofran Inj) 4 mg Q6H PRN IV NAUSEA AND/OR VOMITING; Start at 23:30 Nitroglycerin (Nitroglycerin (Sl Tab) 0.4 Mg) 1 tab Q5M PRN SL CHEST PAIN; Start 03/10/17 at 23:30 Acetaminophen (Tylenol Liquid) 650 mg Q6H PRN PO PAIN LEVEL 1-3 OR FEVER Last administered on 03/13/17t 20:33; Admin Dose 650 MG; Start 03/10/17 at 23:30 Apixaban (Eliquis) 2.5 mg BID PO Last administered on 03/11/17 08:55; Admin Dose 2.5 MG; Start 03/11/17 at 09:00; Status Future Hold Buspirone HCl (Buspar) 10 mg BID PO Last administered on 03/14/17 08:15; Admin Dose 10 MG; Start 03/11/17 at 09:00 Citalopram Hydrobromide (Celexa) 20 mg DAILY PO Last administered on 08:15; Admin Dose 20 MG; Start 03/11/17 at 09:00 Lamotrigine (Lamictal) 25 mg DAILY PO Last administered on 03/14/17 08:15; Admin Dose 25 MG; Start 03/11/17 at 09:00 Mirtazapine (Remeron) 7.5 mg HS PO Last administered on 03/13/17 20:33; Admin Dose 7.5 MG; Start 03/11/17 at 21:00 Potassium Chloride (Klor-Con 10) 10 meq DAILY PO Last administered on 08:15; Admin Dose 10 MEQ; Start 03/11/17 at 09:00 Miscellaneous Information (Pending Santyl Order For Wound Care) This patient buitrago... PRN PRN XX WOUND CARE; Start 03/11/17 at 01:30 Diagnostic Test (Pha) (Accu-Chek) 1 ea 02 XX Last administered on 03/14/17 02 :52; Admin Dose 1 EA; Start 03/13/17 at 02:00 Miscellaneous Information 1 ea NOTE XX ; Start 03/12/17 at 11:00 Glucose (Glutose) 15 gm Q15M PRN PO DECREASED GLUCOSE; Start 03/12/17 at 11:00 Glucose (Glutose) 22.5 gm Q15M PRN PO DECREASED GLUCOSE; Start 03/12/17 at 11: 00 Dextrose (D50w Syringe) 25 ml Q15M PRN IV DECREASED GLUCOSE; Start 03/12/17 at 11:00 Dextrose (D50w Syringe) 50 ml Q15M PRN IV DECREASED GLUCOSE; Start 03/12/17 at 11:00 Glucagon (Glucagen) 1 mg Q15M PRN IM DECREASED GLUCOSE; Start 03/12/17 at 11: 00 Glucose (Glutose) 15 gm Q15M PRN BUCCAL DECREASED GLUCOSE; Start 03/12/17 at 11:00 Assessment/Plan Chief Complaint/Hosp Course 1. Afib: chronic: with RVR on admission, but HR is better now 2. s/p shock: probably septic : BP has improved now 3. CHF: acute on chronic: due to diastolic heart failure 4. pulm HTN 5. hx HTN: now hypotensive 6. large pleural effusion 7. hx CAD 8. Hx CABG 9. hx Bipolar d/o 10. anemia 11. CKD 12. History of most likely multiple myeloma: Patient says that she is being followed as an outpatient by her oncologist which does not remember the name of Recommendations: eliquis is on hold on anticipation for thoracentesis and due to severe anemia. Dr Billingsley was consulted for pulm eval. Her blood pressure medication is on hold for now due to hypotension. I START LOW DOSE CARDIZEM NOW low dose dig prn to control HR Antibiotic management will be deferred to the internal medicine team. We will correct electrolytes as needed basis. OFF of IV lasix due to worsening renal fx. will adjust give prn Nutritional support to be continued as well. CODE STATUS is DNR. hospice eval is pending Thank you for his referral. I will continue to follow along with you. Rut Jerome MD [facility] Problems: RUT JEROME MD Mar 14, 2017 10:00
--- NOTE | 2017-03-14 10:06 | CONS ---
Date/Time of Note Date/Time of Note DATE: 03/14/17 TIME: 10:04 Assessment/Plan Assessment/Plan Additional Assessment/Plan Assessment and recommendations; 1. Patient admitted with shortness of breath due to bilateral pleural effusions from CHF awaiting thoracentesis. 2. Chronic renal insufficiency. 3. Patient currently was on hospice service. Continue current treatment. Awaiting thoracentesis. Consultation Date/Type/Reason Admit Date/Time Mar 10, 2017 at 20:32 Initial Consult Date 03/11/17 Type of Consultation: Pulmonary Referring Provider: MIRI CRUZ MD 24 HR Interval Summary Free Text/Dictation Patient's condition is stable. Remains awake and alert. Complains of chest congestion and coughing. General exam; elderly woman, laying flat in bed. Currently in no distress. Awake and alert. Exam/Review of Systems Vital Signs Vitals Vital Signs Date Time Temp Pulse Resp B/P Pulse Ox O2 Delivery O2 Flow Rate FiO2 03/14/17 08:08 78 03/14/17 07:57 97.9 17 146/60 97 03/14/17 02:08 2.0 03/13/17 20:33 Nasal Cannula 03/11/17 02:05 31 Intake and Output 03/13/17 03/13/17 03/14/17 15:00 23:00 07:00 Intake Total 800 ml Output Total 875 ml Balance -75 ml Exam HEENT exam; supple neck, positive JVD. No lymphadenopathy. Midline trachea. No thyromegaly. Patient is edentulous and wears dentures. Chest exam; diminished breath sound lung bases. Upper lobes are clear to auscultation. S1-S2 audible, irregular rhythm. There is a MediPort in the right chest wall. Abdomen exam; soft, nondistended. No organomegaly. Bowel sounds audible. Extremity exam; trace edema. Patient has a multiple ecchymosis involving all 4 extremities. CONTENT STRATEGY LEAD exam; no focal motor deficit. Results Result Diagram: 03/14/17 0656 03/14/17 0656 Results 24 hrs Laboratory Tests Test 03/13/17 12:15 03/13/17 17:39 03/13/17 20:36 03/14/17 06:56 Bedside Glucose 124 114 133 White Blood Count 7.0 Red Blood Count 2.32 L Hemoglobin 7.3 L Hematocrit 23.0 L Mean Corpuscular Volume 99.1 Mean Corpuscular Hemoglobin 31.5 Mean Corpuscular Hemoglobin Concent 31.7 L Red Cell Distribution Width 16.8 H Platelet Count 88 L Mean Platelet Volume 12.0 H Neutrophils % 64.2 Lymphocytes % 26.7 Monocytes % 7.2 Eosinophils % 1.0 Basophils % 0.3 Nucleated Red Blood Cells % 0.0 Neutrophils # 4.5 Lymphocytes # 1.9 Monocytes # 0.5 Eosinophils # 0.1 Basophils # 0.0 Nucleated Red Blood Cells # 0.0 Sodium Level 144 Potassium Level 4.0 Chloride Level 106 Carbon Dioxide Level 31 Anion Gap 11 Blood Urea Nitrogen 29 H Creatinine 1.49 H Glucose Level 67 L Calcium Level 8.1 L Magnesium Level 1.6 L Total Bilirubin 0.1 L Direct Bilirubin 0.00 Indirect Bilirubin 0.1 Aspartate Amino Transf (AST/SGOT) 15 Alanine Aminotransferase (ALT/SGPT) 33 Alkaline Phosphatase 78 B-Type Natriuretic Peptide 67407 H Total Protein 4.6 L Albumin 2.1 L Globulin 2.50 Albumin/Globulin Ratio 0.84 Test 03/14/17 08:13 Bedside Glucose 95 Medications Medications Current Medications Ondansetron HCl (Zofran Inj) 4 mg Q6H PRN IV NAUSEA AND/OR VOMITING; Start at 23:30 Nitroglycerin (Nitroglycerin (Sl Tab) 0.4 Mg) 1 tab Q5M PRN SL CHEST PAIN; Start 03/10/17 at 23:30 Acetaminophen (Tylenol Liquid) 650 mg Q6H PRN PO PAIN LEVEL 1-3 OR FEVER Last administered on 03/13/17 20:33; Admin Dose 650 MG; Start 03/10/17 at 23:30 Apixaban (Eliquis) 2.5 mg BID PO Last administered on 03/11/17 08:55; Admin Dose 2.5 MG; Start 03/11/17 at 09:00; Status Future Hold Buspirone HCl (Buspar) 10 mg BID PO Last administered on 03/14/17 08:15; Admin Dose 10 MG; Start 03/11/17 at 09:00 Citalopram Hydrobromide (Celexa) 20 mg DAILY PO Last administered on 08:15; Admin Dose 20 MG; Start 03/11/17 at 09:00 Lamotrigine (Lamictal) 25 mg DAILY PO Last administered on 03/14/17 08:15; Admin Dose 25 MG; Start 03/11/17 at 09:00 Mirtazapine (Remeron) 7.5 mg HS PO Last administered on 03/13/17 20:33; Admin Dose 7.5 MG; Start 03/11/17 at 21:00 Potassium Chloride (Klor-Con 10) 10 meq DAILY PO Last administered on 08:15; Admin Dose 10 MEQ; Start 03/11/17 at 09:00 Miscellaneous Information (Pending Santyl Order For Wound Care) This patient buitrago... PRN PRN XX WOUND CARE; Start 03/11/17 at 01:30 Diagnostic Test (Pha) (Accu-Chek) 1 ea 02 XX Last administered on 03/14/17 02 :52; Admin Dose 1 EA; Start 03/13/17 at 02:00 Miscellaneous Information 1 ea NOTE XX ; Start 03/12/17 at 11:00 Glucose (Glutose) 15 gm Q15M PRN PO DECREASED GLUCOSE; Start 03/12/17 at 11:00 Glucose (Glutose) 22.5 gm Q15M PRN PO DECREASED GLUCOSE; Start 03/12/17 at 11: 00 Dextrose (D50w Syringe) 25 ml Q15M PRN IV DECREASED GLUCOSE; Start 03/12/17 at 11:00 Dextrose (D50w Syringe) 50 ml Q15M PRN IV DECREASED GLUCOSE; Start 03/12/17 at 11:00 Glucagon (Glucagen) 1 mg Q15M PRN IM DECREASED GLUCOSE; Start 03/12/17 at 11: 00 Glucose (Glutose) 15 gm Q15M PRN BUCCAL DECREASED GLUCOSE; Start 03/12/17 at 11:00 Diltiazem HCl (Cardizem) 30 mg TID PO ; Start 03/14/17 at 13:00; Status ALEXI FERREIRA Mar 14, 2017 10:06
--- NOTE | 2017-03-14 10:25 | RADRPT ---
PROCEDURE: XR Chest. CLINICAL INDICATION: Pneumonia TECHNIQUE: An AP view of the chest was obtained. COMPARISON: DR CANTU 03/10/2017 FINDINGS: There is a right chest Port-A-Cath with tip near the cavoatrial junction. There are bilateral interstitial opacities with small bilateral pleural effusions. No focal airspa ce opacification or pneumothorax is seen. The cardiomediastinal silhouette is mildly enlarged . Ca lcifications are seen within the aortic arch. There are post cardiac surgery changes with sternotom y wires. The osseous structures demonstrate senescent changes. IMPRESSION: 1. Findings suggestive of interstitial edema with small bilateral pleural effusions, mildly increas ed when compared to the prior examination. 2. Mild cardiomegaly and aortic atherosclerosis. 3. Right chest Port-A-Cath with tip near the cavoatrial junction. RPTAT: HH .Trudy Jackson MD, MD Date Time Electronically viewed and signed by .Trudy Jackson MD, on 03/14/2017 10:24 .G/
[2017-03-14] MEDS ORDERED: LIDOCAINE 1% (MPF) 5 ML VIAL ONE (10:40)
--- NOTE | 2017-03-14 10:56 | RADRPT ---
PROCEDURE: US guided right thoracentesis. CLINICAL INDICATION: Shortness of breath. Right pleural effusion. TECHNIQUE: Prior to the procedure, informed consent was obtained. The risks, benefits, and alternatives were e xplained to the patient or the patient's family, including but not limited to bleeding, infection, p ain, visceral or vascular damage, shock, pneumothorax, chest tube placement, air embolism, and . The patient or the patient's family understood the risks and the alternatives and wished to proce ed with the study. Informed written consent was obtained. A procedural pause was performed. The patient's name, date of , and procedure to be performed were verified. Ultrasound of the right hemithorax was performed in the axial and sagittal planes. A right pleural e ffusion is noted. Utilizing ultrasound guidance, optimal location for entry to the pleural cavity wa s ascertained. The overlying skin was prepped and draped in the usual sterile fashion. Approximate ly 10 ml of 1% Xylocaine was injected locally for pain control. Using ultrasound guidance, a 5-Fren Yueh catheter was introduced into the right pleural space without difficulty. Fluid was aspirated . COMPARISON: Chest x-ray done earlier the same day. FINDINGS: Initial ultrasound demonstrates fluid in the right pleural space. Approximately 0.840 liters of ser ous fluid was aspirated and sent to the laboratory. IMPRESSION: 1. Satisfactory ultrasound-guided right thoracentesis. RPTAT: QQ .Cam Estes MD, Date Time Electronically viewed and signed by .Cam Estes MD, on 03/14/2017 10:55 .R/
--- NOTE | 2017-03-14 11:31 | RADRPT ---
PROCEDURE: XR Chest. CLINICAL INDICATION: Pneumonia TECHNIQUE: An AP view of the chest was obtained. COMPARISON: 03/14/2017 at 08:42 AM. FINDINGS: There is a right chest Port-A-Cath with tip near the cavoatrial junction. There are bilateral inters titial opacities with small bilateral pleural effusions. No focal airspace opacification or pneumoth orax is seen. The cardiomediastinal silhouette is mildly enlarged . Calcifications are seen within t he aortic arch. There are post cardiac surgery changes with sternotomy wires. The osseous structures demonstrate senescent changes. IMPRESSION: 1. Findings suggestive of interstitial edema with small bilateral pleural effusions, mildly decrease d when compared to the prior examination. 2. Mild cardiomegaly and aortic atherosclerosis. 3. Right chest Port-A-Cath with tip near the cavoatrial junction. RPTAT: JJ .Uli Dutta MD, Date Time Electronically viewed and signed by .Uli Dutta MD, on 03/14/2017 11:30 .A/
[2017-03-14 11:54] LABS: FLD MN% 77.7 %; FLD PMN% 22.3 %; FLD RBC 0 /uL; FLD WBC 139 /cmm
[2017-03-14 12:02] LABS: FLUID GLUCOSE 80 mg/dl
[2017-03-14 12:03] LABS: FLUID LD 219 U/L; FLUID TOTAL PROTEIN < 3.0 g/dl; FLUID TYPE THORACENTESIS FLUID
[2017-03-14] MEDS: HYDROCODONE/APAP (5/325) TAB PO PRN (12:22)
[2017-03-14] MEDS: FUROSEMIDE 40 MG INJ IV SCH ×2 (12:22→17:45)
[2017-03-14] MEDS: DILTIAZEM 30 MG TAB PO SCH ×2 (12:22→21:34)
[2017-03-14 12:48] LABS: FLD TYPE THORACENTHESIS
[2017-03-14 12:49] LABS: FLD CLARITY CLEAR; FLD COLOR COLORLESS
--- NOTE | 2017-03-14 13:54 | PN ---
Date/Time of Note Date/Time of Note DATE: 03/14/17 TIME: 13:52 Assessment/Plan VTE Prophylaxis VTE Prophylaxis Intervention: LMWH Lines/Catheters IV Catheter Type (from Nrs): Port a cath Urinary Cath still in place: Yes Reason Cath still needed: urinary retention Assessment/Plan Chief Complaint/Hosp Course 76 yo female who presents with permanent atrial fibrillation who presented with acute diastolic CHF exacerbation and A Fib with RVR Acute diastolic CHF exacerbation:- - resume lasix to euvolemia - Goals are palliative. Relief of pulmonary edema imperative to this Permanent A Fib: - Rate adequately controlled - 25 Toprol daily, home med - Cont Eliquis, home med Discharge when euvolemic and nonhypoxic DNR/DNI, pending hospice Problems: Subjective 24 Hr Interval Summary Free Text/Dictation Thoracentesis performed today, 800 cc removed Breathing slightly improved Hospice referral underway Exam/Review of Systems Vital Signs Vitals Vital Signs Date Time Temp Pulse Resp B/P Pulse Ox O2 Delivery O2 Flow Rate FiO2 03/14/17 13:39 2.0 03/14/17 13:39 95 20 98 Nasal Cannula 03/14/17 11:55 97.9 129/67 03/11/17 02:05 31 Intake and Output 03/13/17 03/13/17 03/14/17 15:00 23:00 07:00 Intake Total 800 ml Output Total 875 ml Balance -75 ml Exam ++ JVD Breathing comfortably Alert, comfortable apperance Results Result Diagram: 03/14/17 0656 03/14/17 0656 Results 24 hrs Laboratory Tests Test 03/13/17 17:39 03/13/17 20:36 03/14/17 06:56 03/14/17 08:13 Bedside Glucose 114 133 95 White Blood Count 7.0 Red Blood Count 2.32 L Hemoglobin 7.3 L Hematocrit 23.0 L Mean Corpuscular Volume 99.1 Mean Corpuscular Hemoglobin 31.5 Mean Corpuscular Hemoglobin Concent 31.7 L Red Cell Distribution Width 16.8 H Platelet Count 88 L Mean Platelet Volume 12.0 H Neutrophils % 64.2 Lymphocytes % 26.7 Monocytes % 7.2 Eosinophils % 1.0 Basophils % 0.3 Nucleated Red Blood Cells % 0.0 Neutrophils # 4.5 Lymphocytes # 1.9 Monocytes # 0.5 Eosinophils # 0.1 Basophils # 0.0 Nucleated Red Blood Cells # 0.0 Sodium Level 144 Potassium Level 4.0 Chloride Level 106 Carbon Dioxide Level 31 Anion Gap 11 Blood Urea Nitrogen 29 H Creatinine 1.49 H Glucose Level 67 L Calcium Level 8.1 L Magnesium Level 1.6 L Total Bilirubin 0.1 L Direct Bilirubin 0.00 Indirect Bilirubin 0.1 Aspartate Amino Transf (AST/SGOT) 15 Alanine Aminotransferase (ALT/SGPT) 33 Alkaline Phosphatase 78 B-Type Natriuretic Peptide 76116 H Total Protein 4.6 L Albumin 2.1 L Globulin 2.50 Albumin/Globulin Ratio 0.84 Test 03/14/17 10:30 03/14/17 12:20 Body Fluid Type THORACENTESIS FLUID Body Fluid Volume 850.0 Body Fluid Color COLORLESS Body Fluid Appearance CLEAR Body Fluid WBC 139 Body Fluid RBC (Auto) 0 Body Fluid Polynuclear WBCs (%) 22.3 Body Fluid Mononuclear Cells % Auto 77.7 Body Fluid Glucose 80 Body Fluid Total Protein < 3.0 Body Fluid Lactate Dehydrogenase 219 Bedside Glucose 75 Medications Medications Current Medications Ondansetron HCl (Zofran Inj) 4 mg Q6H PRN IV NAUSEA AND/OR VOMITING; Start at 23:30 Nitroglycerin (Nitroglycerin (Sl Tab) 0.4 Mg) 1 tab Q5M PRN SL CHEST PAIN; Start 03/10/17 at 23:30 Acetaminophen (Tylenol Liquid) 650 mg Q6H PRN PO PAIN LEVEL 1-3 OR FEVER Last administered on 03/13/17 20:33; Admin Dose 650 MG; Start 03/10/17 at 23:30 Apixaban (Eliquis) 2.5 mg BID PO Last administered on 03/11/17 08:55; Admin Dose 2.5 MG; Start 03/11/17 at 09:00; Status Future Hold Buspirone HCl (Buspar) 10 mg BID PO Last administered on 03/14/17 08:15; Admin Dose 10 MG; Start 03/11/17 at 09:00 Citalopram Hydrobromide (Celexa) 20 mg DAILY PO Last administered on 08:15; Admin Dose 20 MG; Start 03/11/17 at 09:00 Lamotrigine (Lamictal) 25 mg DAILY PO Last administered on 03/14/17 08:15; Admin Dose 25 MG; Start 03/11/17 at 09:00 Mirtazapine (Remeron) 7.5 mg HS PO Last administered on 03/13/17 20:33; Admin Dose 7.5 MG; Start 03/11/17 at 21:00 Potassium Chloride (Klor-Con 10) 10 meq DAILY PO Last administered on 08:15; Admin Dose 10 MEQ; Start 03/11/17 at 09:00 Miscellaneous Information [facility] This patient buitrago... PRN PRN XX WOUND CARE; Start 03/11/17 at 01:30 Diagnostic Test (Pha) (Accu-Chek) 1 ea 02 XX Last administered on 03/14/17 02 :52; Admin Dose 1 EA; Start 03/13/17 at 02:00 Miscellaneous Information 1 ea NOTE XX ; Start 03/12/17 at 11:00 Glucose (Glutose) 15 gm Q15M PRN PO DECREASED GLUCOSE; Start 03/12/17 at 11:00 Glucose (Glutose) 22.5 gm Q15M PRN PO DECREASED GLUCOSE; Start 03/12/17 at 11: 00 Dextrose (D50w Syringe) 25 ml Q15M PRN IV DECREASED GLUCOSE; Start 03/12/17 at 11:00 Dextrose (D50w Syringe) 50 ml Q15M PRN IV DECREASED GLUCOSE; Start 03/12/17 at 11:00 Glucagon (Glucagen) 1 mg Q15M PRN IM DECREASED GLUCOSE; Start 03/12/17 at 11: 00 Glucose (Glutose) 15 gm Q15M PRN BUCCAL DECREASED GLUCOSE; Start 03/12/17 at 11:00 Diltiazem HCl (Cardizem) 30 mg TID PO Last administered on 03/14/17 12:22; Admin Dose 30 MG; Start 03/14/17 at 11:31 Acetaminophen/ Hydrocodone Bitart ([place] (5/325)) 1 tab Q4H PRN PO PAIN Last administered on 03/14/17 12:22; Admin Dose 1 TAB; Start 03/14/17 at 12:00 GIOVANNI HESTER MD Mar 14, 2017 13:54
[2017-03-14] MEDS: MIRTAZAPINE 15 MG TAB PO SCH (21:31)
[2017-03-14] MEDS: MUPIROCIN 2% 22 GM OINT TOP SCH (21:31)
[2017-03-15] VITALS (13 sets, daily range): BP systolic 95–134; BP diastolic 51–70; PULSE 74–119; RESP 16–18
[2017-03-15] MEDS: ACCU-CHEK XX SCH (02:00)
[2017-03-15] MEDS: ACETAMINOPHEN 650MG/20.3ML CUP PO PRN (02:06)
[2017-03-15] MEDS: HYDROCODONE/APAP (5/325) TAB PO PRN ×3 (02:09→20:17)
[2017-03-15] MEDS: FUROSEMIDE 40 MG INJ IV SCH ×2 (06:05→17:25)
[2017-03-15 07:54] LABS: CALCIUM 8.1 mg/dl (8.4-10.2); CREATININE 1.42 mg/dl (0.44-1.00); POTASSIUM 4.1 mmol/L (3.5-5.1)
[2017-03-15] MEDS: INSULIN ASPART [NOVOLOG] 3 ML PEN SC SCH ×2 (08:00→12:00)
[2017-03-15] MEDS: LAMOTRIGINE 25 MG TAB PO SCH (08:11)
[2017-03-15] MEDS: POTASSIUM CHLORIDE (SR) 10 MEQ TAB PO SCH (08:11)
[2017-03-15] MEDS: BALSAM PERU/CASTOR OIL 60 GM TUBE TOP SCH ×2 (08:12→20:21)
[2017-03-15] MEDS: MUPIROCIN 2% 22 GM OINT TOP SCH ×2 (08:12→20:21)
[2017-03-15] MEDS: CITALOPRAM 20 MG TAB PO SCH (08:12)
[2017-03-15] MEDS: BUSPIRONE 10 MG TAB PO SCH ×2 (08:12→20:17)
[2017-03-15] MEDS: DILTIAZEM 30 MG TAB PO SCH ×3 (08:12→20:20)
[2017-03-15] MEDS: ALBUTEROL/IPRATROPIUM (NEB) 3 ML AMP HHN SCH ×4 (08:48→21:40)
[2017-03-15] MEDS: ACETYLCYSTEINE 20% 4 ML VIAL NEB SCH ×4 (08:59→21:41)
--- NOTE | 2017-03-15 11:59 | CONS ---
Date/Time of Note Date/Time of Note DATE: 03/15/17 TIME: 11:57 Assessment/Plan Assessment/Plan Additional Assessment/Plan Patient underwent right sided thoracentesis yesterday 0.8 L of fluid was removed. Assessment and recommendations; 1. Patient admitted with hypoxemia due to CHF exacerbation with persistent severe pulmonary edema. 2. Status post right thoracentesis yesterday. Next 3. Anemia and thrombocytopenia. 4. Chronic renal insufficiency. 5. Patient was recently on hospice service. 6. Refractory CHF. Continue current supportive care. Consider reinitiating hospice. Consultation Date/Type/Reason Admit Date/Time Mar 10, 2017 at 20:32 Initial Consult Date 03/11/17 Type of Consultation: Pulmonary Referring Provider: MIRI CRUZ MD 24 HR Interval Summary Free Text/Dictation Patient's condition is tenuous at best. Still requiring supplemental oxygen for O2 saturation maintenance. General exam; elderly woman, awake, currently in no distress. Able to lay down in bed flat. Exam/Review of Systems Vital Signs Vitals Vital Signs Date Time Temp Pulse Resp B/P Pulse Ox O2 Delivery O2 Flow Rate FiO2 03/15/17 11:33 97.8 109 18 99/51 95 03/15/17 08:59 2.0 03/15/17 08:59 Nasal Cannula Intake and Output 03/14/17 03/14/17 03/15/17 15:00 23:00 07:00 Intake Total 600 ml 300 ml Output Total 900 ml 2500 ml Balance -300 ml -2200 ml Exam HEENT exam; supple neck, positive JVD. No lymphadenopathy. Midline trachea. No thyromegaly. Patient is edentulous and wears dentures. Chest exam; diminished breath sounds throughout. S1-S2 audible, no murmurs. Regular rhythm. Abdomen exam; soft, nondistended. Nontender. No organomegaly. Bowel sounds audible. Extremity exam; no edema. FUR PLUCKER exam; no focal deficit. Results Result Diagram: 03/14/17 0656 03/15/17 0617 Results 24 hrs Laboratory Tests Test 03/14/17 12:20 03/14/17 17:42 03/14/17 21:29 03/15/17 06:17 Bedside Glucose 75 201 94 Sodium Level 143 Potassium Level 4.1 Chloride Level 105 Carbon Dioxide Level 31 Anion Gap 11 Blood Urea Nitrogen 33 H Creatinine 1.42 H Glucose Level 64 L Calcium Level 8.1 L Test 03/15/17 08:09 Bedside Glucose 79 Medications Medications Current Medications Ondansetron HCl (Zofran Inj) 4 mg Q6H PRN IV NAUSEA AND/OR VOMITING; Start at 23:30 Nitroglycerin (Nitroglycerin (Sl Tab) 0.4 Mg) 1 tab Q5M PRN SL CHEST PAIN; Start 03/10/17 at 23:30 Acetaminophen (Tylenol Liquid) 650 mg Q6H PRN PO PAIN LEVEL 1-3 OR FEVER Last administered on 03/15/17 02:06; Admin Dose 650 MG; Start 03/10/17 at 23:30 Apixaban (Eliquis) 2.5 mg BID PO Last administered on 03/11/17 08:55; Admin Dose 2.5 MG; Start 03/11/17 at 09:00; Status Future Hold Buspirone HCl (Buspar) 10 mg BID PO Last administered on 03/15/17 08:12; Admin Dose 10 MG; Start 03/11/17 at 09:00 Citalopram Hydrobromide (Celexa) 20 mg DAILY PO Last administered on 03/15/17 08:12; Admin Dose 20 MG; Start 03/11/17 at 09:00 Lamotrigine (Lamictal) 25 mg DAILY PO Last administered on 03/15/17 08:11; Admin Dose 25 MG; Start 03/11/17 at 09:00 Mirtazapine (Remeron) 7.5 mg HS PO Last administered on 03/14/17 21:31; Admin Dose 7.5 MG; Start 03/11/17 at 21:00 Potassium Chloride (Klor-Con 10) 10 meq DAILY PO Last administered on 08:11; Admin Dose 10 MEQ; Start 03/11/17 at 09:00 [facility]isc[facility] This patient buitrago... PRN PRN XX WOUND CARE; Start 03/11/17 at 01:30 Diagnostic Test (Pha) (Accu-Chek) 1 ea 02 XX Last administered on 03/14/17 02 :52; Admin Dose 1 EA; Start 03/13/17 at 02:00 Miscellaneous Information 1 ea NOTE XX ; Start 03/12/17 at 11:00 Glucose (Glutose) 15 gm Q15M PRN PO DECREASED GLUCOSE; Start 03/12/17 at 11:00 Glucose (Glutose) 22.5 gm Q15M PRN PO DECREASED GLUCOSE; Start 03/12/17 at 11: 00 Dextrose (D50w Syringe) 25 ml Q15M PRN IV DECREASED GLUCOSE; Start 03/12/17 at 11:00 Dextrose (D50w Syringe) 50 ml Q15M PRN IV DECREASED GLUCOSE; Start 03/12/17 at 11:00 Glucagon (Glucagen) 1 mg Q15M PRN IM DECREASED GLUCOSE; Start 03/12/17 at 11: 00 Glucose (Glutose) 15 gm Q15M PRN BUCCAL DECREASED GLUCOSE; Start 03/12/17 at 11:00 Diltiazem HCl (Cardizem) 30 mg TID PO Last administered on 03/15/17 08:12; Admin Dose 30 MG; Start 03/14/17 at 11:31 Acetaminophen/ Hydrocodone Bitart ([place] (5/325)) 1 tab Q4H PRN PO PAIN Last administered on 03/15/17 02:09; Admin Dose 1 TAB; Start 03/14/17 at 12:00 Mupirocin (Bactroban) 1 applic BID TOP Last administered on 03/15/17 08:12; Admin Dose 1 APPLIC; Start 03/14/17 at 21:00 ALEXI VILLAREAL Mar 15, 2017 11:59
[2017-03-15] MEDS ORDERED: DOCUSATE SODIUM 100 MG CAP PO ONE (14:30)
--- NOTE | 2017-03-15 14:43 | CONS ---
Date/Time of Note Date/Time of Note DATE: 03/15/17 TIME: 14:39 Consult Date/Type/Reason Admit Date/Time Mar 10, 2017 at 20:32 Initial Consult Date 03/11/17 Type of Consultation: CARDIOLOGY Ordering Provider: MIRI CRUZ MD Subjective cardiology follow up note: S: D/W STAFF and rhythm was reviewed. pt remains in AFIB . HR is under fair control no chest pain or pressure she still has sob and cough. BUT HER SOB is much better s/p thoracentesis 03/14 O; General: no acute distress HEENT: NC/AT. pupils are equal. round. NECK: NO JVD. no stridor. CV: irregularly irregular. systolic murmur; no gallop or rubs. PULM: no wheezing . + b/l rhonchi. chest: s/p port on right chest. GI: SOFT, NT, ND, no rebound or guarding Extremity: + trace B/L LE edema . no clubbing. neuro: awake and alert, OX3. Psych: calm and pleasant rectal: deferred : deferred ECG reviewed Afib incomplete LBBB Echo reviewed; 1. There is mild enlargement of left atrium. 2. There is mild enlargement of right atrium. 3. Normal left ventricular systolic function. Normal left ventricular cavity size. Normal left ventricular wall thickness. Ejection fraction is visually estimated at 55 %. Tissue Doppler/Mitral Doppler indices are indeterminate in this study due to the presence of. 4. Mitral valve leaflets appear mildly thickened. Mild mitral annular calcification. Moderate mitral valve regurgitation. 5. No hemodynamically significant aortic stenosis by doppler. Aortic cusps appear mildly calcified. Trace aortic valve regurgitation. 6. Normal appearance of the tricuspid valve. Estimated peak PA systolic pressure 68 mmHg. There is moderate to severe tricuspid regurgitation. 7. Dilated IVC without respiratory collapse consistent with elevated right atrial pressure. CXR personally reviewed: 1. Large bilateral pleural effusion with compressive atelectasis of the both lower lobes. 2. Moderate cardiomegaly with pulmonary venous congestion. Status post CABG. Objective Vital Signs Date Time Temp Pulse Resp B/P Pulse Ox O2 Delivery O2 Flow Rate FiO2 03/15/17 13:49 97 20 98 Nasal Cannula 2.0 03/15/17 11:33 97.8 99/51 Intake and Output 03/14/17 03/14/17 03/15/17 14:59 22:59 06:59 Intake Total 600 ml 300 ml Output Total 900 ml 2500 ml Balance -300 ml -2200 ml Results/Medications Result Diagram: 03/14/17 0656 03/15/17 0617 Results 24 hrs Laboratory Tests Test 03/14/17 17:42 03/14/17 21:29 03/15/17 06:17 03/15/17 08:09 Bedside Glucose 201 94 79 Sodium Level 143 Potassium Level 4.1 Chloride Level 105 Carbon Dioxide Level 31 Anion Gap 11 Blood Urea Nitrogen 33 H Creatinine 1.42 H Glucose Level 64 L Calcium Level 8.1 L Test 03/15/17 12:12 Bedside Glucose 102 Medications Current Medications Ondansetron HCl (Zofran Inj) 4 mg Q6H PRN IV NAUSEA AND/OR VOMITING; Start at 23:30 Nitroglycerin (Nitroglycerin (Sl Tab) 0.4 Mg) 1 tab Q5M PRN SL CHEST PAIN; Start 03/10/17 at 23:30 Acetaminophen (Tylenol Liquid) 650 mg Q6H PRN PO PAIN LEVEL 1-3 OR FEVER Last administered on 03/15/17 02:06; Admin Dose 650 MG; Start 03/10/17 at 23:30 Apixaban (Eliquis) 2.5 mg BID PO Last administered on 03/11/17 08:55; Admin Dose 2.5 MG; Start 03/11/17 at 09:00; Status Future Hold Buspirone HCl (Buspar) 10 mg BID PO Last administered on 03/15/17 08:12; Admin Dose 10 MG; Start 03/11/17 at 09:00 Citalopram Hydrobromide (Celexa) 20 mg DAILY PO Last administered on 03/15/17 08:12; Admin Dose 20 MG; Start 03/11/17 at 09:00 Lamotrigine (Lamictal) 25 mg DAILY PO Last administered on 03/15/17 08:11; Admin Dose 25 MG; Start 03/11/17 at 09:00 Mirtazapine (Remeron) 7.5 mg HS PO Last administered on 03/14/17 21:31; Admin Dose 7.5 MG; Start 03/11/17 at 21:00 Potassium Chloride (Klor-Con 10) 10 meq DAILY PO Last administered on 08:11; Admin Dose 10 MEQ; Start 03/11/17 at 09:00 Miscellaneous Information ([facility] This patient buitrago... PRN PRN XX WOUND CARE; Start 03/11/17 at 01:30 Diagnostic Test (Pha) (Accu-Chek) 1 ea 02 XX Last administered on 03/14/17 02 :52; Admin Dose 1 EA; Start 03/13/17 at 02:00 Miscellaneous Information 1 ea NOTE XX ; Start 03/12/17 at 11:00 Glucose (Glutose) 15 gm Q15M PRN PO DECREASED GLUCOSE; Start 03/12/17 at 11:00 Glucose (Glutose) 22.5 gm Q15M PRN PO DECREASED GLUCOSE; Start 03/12/17 at 11: 00 Dextrose (D50w Syringe) 25 ml Q15M PRN IV DECREASED GLUCOSE; Start 03/12/17 at 11:00 Dextrose (D50w Syringe) 50 ml Q15M PRN IV DECREASED GLUCOSE; Start 03/12/17 at 11:00 Glucagon (Glucagen) 1 mg Q15M PRN IM DECREASED GLUCOSE; Start 03/12/17 at 11: 00 Glucose (Glutose) 15 gm Q15M PRN BUCCAL DECREASED GLUCOSE; Start 03/12/17 at 11:00 Diltiazem HCl (Cardizem) 30 mg TID PO Last administered on 03/15/17 12:15; Admin Dose 30 MG; Start 03/14/17 at 11:31 Acetaminophen/ Hydrocodone Bitart ([place] (5/325)) 1 tab Q4H PRN PO PAIN Last administered on 03/15/17 02:09; Admin Dose 1 TAB; Start 03/14/17 at 12:00 Mupirocin (Bactroban) 1 applic BID TOP Last administered on 03/15/17 08:12; Admin Dose 1 APPLIC; Start 03/14/17 at 21:00 Assessment/Plan Chief Complaint/Hosp Course 1. Afib: chronic: with RVR on admission, but HR is better now 2. s/p shock: probably septic : BP has improved now 3. CHF: acute on chronic: due to diastolic heart failure 4. pulm HTN 5. hx HTN: now hypotensive 6. large pleural effusion 7. hx CAD 8. Hx CABG 9. hx Bipolar d/o 10. anemia 11. CKD 12. History of most likely multiple myeloma: Patient says that she is being followed as an outpatient by her oncologist which does not remember the name of Recommendations: lorena is on hold on anticipation for thoracentesis and due to severe anemia. Dr Billingsley was consulted for pulm eval. Her blood pressure medication is on hold for now due to hypotension. cont cardizem low dose dig prn to control HR Antibiotic management will be deferred to the internal medicine team. We will correct electrolytes as needed basis. pt is back on IV lasix . f/u renal fx. Nutritional support to be continued as well. CODE STATUS is DNR. hospice eval is pending Thank you for his referral. I will continue to follow along with you. Rut Jerome MD [facility] Problems: RUT JEROME MD Mar 15, 2017 14:43
[2017-03-15] MEDS: ONDANSETRON 4 MG INJ IV PRN (14:54)
[2017-03-15] MEDS ORDERED: DIGOXIN 500 MCG INJ IV ONE (15:00)
--- NOTE | 2017-03-15 16:50 | PN ---
Date/Time of Note Date/Time of Note DATE: 03/15/17 TIME: 16:49 Assessment/Plan VTE Prophylaxis VTE Prophylaxis Intervention: LMWH Lines/Catheters IV Catheter Type (from Nrsg): Port a cath Urinary Cath still in place: Yes Reason Cath still needed: urinary retention Assessment/Plan Chief Complaint/Hosp Course 76 yo female who presents with permanent atrial fibrillation who presented with acute diastolic CHF exacerbation and A Fib with RVR Acute diastolic CHF exacerbation:- - resume lasix to euvolemia - Goals are palliative. Relief of pulmonary edema imperative to this Permanent A Fib: - Rate adequately controlled - 25 Toprol daily, home med - Cont Eliquis, home med Discharge to hospice tomorrow DNR/DNI Problems: Subjective 24 Hr Interval Summary Free Text/Dictation Respiratory status improved on lasix Pending transfer to hospice Exam/Review of Systems Vital Signs Vitals Vital Signs Date Time Temp Pulse Resp B/P Pulse Ox O2 Delivery O2 Flow Rate FiO2 03/15/17 16:22 74 03/15/17 16:04 98.2 18 95/52 97 03/15/17 13:49 Nasal Cannula 2.0 Intake and Output 03/14/17 03/14/17 03/15/17 14:59 22:59 06:59 Intake Total 600 ml 300 ml Output Total 900 ml 2500 ml Balance -300 ml -2200 ml Results Result Diagram: 03/14/17 0656 03/15/17 0617 Results 24 hrs Laboratory Tests Test 03/14/17 17:42 03/14/17 21:29 03/15/17 06:17 03/15/17 08:09 Bedside Glucose 201 94 79 Sodium Level 143 Potassium Level 4.1 Chloride Level 105 Carbon Dioxide Level 31 Anion Gap 11 Blood Urea Nitrogen 33 H Creatinine 1.42 H Glucose Level 64 L Calcium Level 8.1 L Test 03/15/17 12:12 Bedside Glucose 102 Medications Medications Current Medications Ondansetron HCl (Zofran Inj) 4 mg Q6H PRN IV NAUSEA AND/OR VOMITING Last administered on 03/15/17t 14:54; Admin Dose 4 MG; Start 03/10/17 at 23:30 Nitroglycerin (Nitroglycerin (Sl Tab) 0.4 Mg) 1 tab Q5M PRN SL CHEST PAIN; Start 03/10/17 at 23:30 Acetaminophen (Tylenol Liquid) 650 mg Q6H PRN PO PAIN LEVEL 1-3 OR FEVER Last administered on 03/15/17 02:06; Admin Dose 650 MG; Start 03/10/17 at 23:30 Apixaban (Eliquis) 2.5 mg BID PO Last administered on 03/11/17 08:55; Admin Dose 2.5 MG; Start 03/11/17 at 09:00; Status Future Hold Buspirone HCl (Buspar) 10 mg BID PO Last administered on 03/15/17 08:12; Admin Dose 10 MG; Start 03/11/17 at 09:00 Citalopram Hydrobromide (Celexa) 20 mg DAILY PO Last administered on 03/15/17 08:12; Admin Dose 20 MG; Start 03/11/17 at 09:00 Lamotrigine (Lamictal) 25 mg DAILY PO Last administered on 03/15/17 08:11; Admin Dose 25 MG; Start 03/11/17 at 09:00 Mirtazapine (Remeron) 7.5 mg HS PO Last administered on 03/14/17 21:31; Admin Dose 7.5 MG; Start 03/11/17 at 21:00 Potassium Chloride (Klor-Con 10) 10 meq DAILY PO Last administered on 08:11; Admin Dose 10 MEQ; Start 03/11/17 at 09:00 Miscellaneous Information (Pending [facility] Order For Wound Care) This patient buitrago... PRN PRN XX WOUND CARE; Start 03/11/17 at 01:30 Diagnostic Test (Pha) (Accu-Chek) 1 ea 02 XX Last administered on 03/14/17 02 :52; Admin Dose 1 EA; Start 03/13/17 at 02:00 Miscellaneous Information 1 ea NOTE XX ; Start 03/12/17 at 11:00 Glucose (Glutose) 15 gm Q15M PRN PO DECREASED GLUCOSE; Start 03/12/17 at 11:00 Glucose (Glutose) 22.5 gm Q15M PRN PO DECREASED GLUCOSE; Start 03/12/17 at 11: 00 Dextrose (D50w Syringe) 25 ml Q15M PRN IV DECREASED GLUCOSE; Start 03/12/17 at 11:00 Dextrose (D50w Syringe) 50 ml Q15M PRN IV DECREASED GLUCOSE; Start 03/12/17 at 11:00 Glucagon (Glucagen) 1 mg Q15M PRN IM DECREASED GLUCOSE; Start 03/12/17 at 11: 00 Glucose (Glutose) 15 gm Q15M PRN BUCCAL DECREASED GLUCOSE; Start 03/12/17 at 11:00 Diltiazem HCl (Cardizem) 30 mg TID PO Last administered on 03/15/17 12:15; Admin Dose 30 MG; Start 03/14/17 at 11:31 Acetaminophen/ Hydrocodone Bitart ([place] (5/325)) 1 tab Q4H PRN PO PAIN Last administered on 03/15/17 14:54; Admin Dose 1 TAB; Start 03/14/17 at 12:00 Mupirocin (Bactroban) 1 applic BID TOP Last administered on 03/15/17 08:12; Admin Dose 1 APPLIC; Start 03/14/17 at 21:00 GIOVANNI HESTER MD Mar 15, 2017 16:50
[2017-03-15] MEDS ORDERED: BISACODYL 10 MG SUPP PR ONE (17:30)
[2017-03-15] MEDS ORDERED: NA PHOSPHATE/BIPHOS 133 ML ENEMA PR PRN (17:30)
[2017-03-15] MEDS: MIRTAZAPINE 15 MG TAB PO SCH (20:16)
[2017-03-16] VITALS (12 sets, daily range): BP systolic 99–129; BP diastolic 50–65; PULSE 78–96; RESP 16–20
[2017-03-16] MEDS: FUROSEMIDE 40 MG INJ IV SCH (05:12)
[2017-03-16 06:18] LABS: BASOPHILS % 0.3 % (0.0-2.0); EOSINOPHILS % 0.3 % (0.0-7.0); HEMATOCRIT 23.1 % (37.0-47.0); HEMOGLOBIN 7.5 g/dl (12.0-16.0); LYMPHOCYTES # 2.5 10^3/ul (0.8-2.9); LYMPHOCYTES % 25.5 % (15.0-51.0); MEAN CORPUSCULAR HEMOGLOBIN 31.8 pg (29.0-33.0); MEAN CORPUSCULAR HGB CONC 32.5 g/dl (32.0-37.0); MEAN CORPUSCULAR VOLUME 97.9 fl (82.0-101.0); MEAN PLATELET VOLUME 12.7 fl (7.4-10.4); MONOCYTES % 9.7 % (0.0-11.0); NEUTROPHIL # 6.3 10^3/ul (1.6-7.5); NEUTROPHILS % 63.7 % (39.0-77.0); PLATELET COUNT 108 10^3/UL (140-415); RED BLOOD COUNT 2.36 10^6/ul (4.20-5.40); RED CELL DISTRIBUTION WIDTH 16.8 % (11.5-14.5); WHITE BLOOD COUNT 9.9 10^3/ul (4.8-10.8)
[2017-03-16 06:59] LABS: ALBUMIN 2.1 g/dl (3.3-4.9); ALBUMIN/GLOBULIN RATIO 0.8; BILIRUBIN,INDIRECT 0.1 mg/dl (0-1.1); BILIRUBIN,TOTAL 0.1 mg/dl (0.2-1.3); CALCIUM 8.1 mg/dl (8.4-10.2); CREATININE 1.46 mg/dl (0.44-1.00); POTASSIUM 4.3 mmol/L (3.5-5.1); TOTAL PROTEIN 4.7 g/dl (6.1-8.1)
[2017-03-16] MEDS: CITALOPRAM 20 MG TAB PO SCH (08:16)
[2017-03-16] MEDS: DILTIAZEM 30 MG TAB PO SCH ×3 (08:17→21:05)
[2017-03-16] MEDS: POTASSIUM CHLORIDE (SR) 10 MEQ TAB PO SCH (08:18)
[2017-03-16] MEDS: BUSPIRONE 10 MG TAB PO SCH ×2 (08:18→21:03)
[2017-03-16] MEDS: LAMOTRIGINE 25 MG TAB PO SCH (08:18)
[2017-03-16] MEDS: MUPIROCIN 2% 22 GM OINT TOP SCH ×2 (08:19→21:05)
[2017-03-16] MEDS: BALSAM PERU/CASTOR OIL 60 GM TUBE TOP SCH ×2 (08:19→21:05)
[2017-03-16] MEDS: ALBUTEROL/IPRATROPIUM (NEB) 3 ML AMP HHN SCH ×4 (09:59→20:49)
[2017-03-16] MEDS: ACETYLCYSTEINE 20% 4 ML VIAL NEB SCH ×4 (10:00→20:50)
[2017-03-16] MEDS: ONDANSETRON 4 MG INJ IV PRN (11:49)
--- NOTE | 2017-03-16 13:36 | CONS ---
Date/Time of Note Date/Time of Note DATE: 03/16/17 TIME: 13:33 Consult Date/Type/Reason Admit Date/Time Mar 10, 2017 at 20:32 Initial Consult Date 03/11/17 Type of Consultation: Pulm Ordering Provider: MIRI CRUZ MD Subjective No events. Imaging and pleural fluid results reviewed. Objective Vital Signs Date Time Temp Pulse Resp B/P Pulse Ox O2 Delivery O2 Flow Rate FiO2 03/16/17 12:26 97.5 84 19 103/50 91 03/16/17 08:00 Nasal Cannula 2.0 Intake and Output 03/15/17 03/15/17 03/16/17 14:59 22:59 06:59 Intake Total 680 ml 400 ml Output Total 1450 ml 1200 ml Balance -770 ml -800 ml Exam HEENT: Neck supple; no JVD; no LAD CVS: Irreg irreg, S1 and S2 CHEST: Decreased BS at bases ABD: Soft, NT, + BS EXT: No c/c/e Results/Medications Result Diagram: 03/16/1752303/16/17 0524 Results 24 hrs Laboratory Tests Test 03/16/17 05:24 White Blood Count 9.9 # Red Blood Count 2.36 L Hemoglobin 7.5 L Hematocrit 23.1 L Mean Corpuscular Volume 97.9 Mean Corpuscular Hemoglobin 31.8 Mean Corpuscular Hemoglobin Concent 32.5 Red Cell Distribution Width 16.8 H Platelet Count 108 #L Mean Platelet Volume 12.7 H Neutrophils % 63.7 Lymphocytes % 25.5 Monocytes % 9.7 Eosinophils % 0.3 Basophils % 0.3 Nucleated Red Blood Cells % 0.0 Neutrophils # 6.3 Lymphocytes # 2.5 Monocytes # 1.0 H Eosinophils # 0.0 Basophils # 0.0 Nucleated Red Blood Cells # 0.0 Sodium Level 142 Potassium Level 4.3 Chloride Level 104 Carbon Dioxide Level 29 Anion Gap 13 Blood Urea Nitrogen 35 H Creatinine 1.46 H Glucose Level 59 L Calcium Level 8.1 L Total Bilirubin 0.1 L Direct Bilirubin 0.00 Indirect Bilirubin 0.1 Aspartate Amino Transf (AST/SGOT) 18 Alanine Aminotransferase (ALT/SGPT) 33 Alkaline Phosphatase 81 Total Protein 4.7 L Albumin 2.1 L Globulin 2.60 Albumin/Globulin Ratio 0.80 Digoxin Level 1.0 Medications Current Medications Ondansetron HCl (Zofran Inj) 4 mg Q6H PRN IV NAUSEA AND/OR VOMITING Last administered on 03/16/17 11:49; Admin Dose 4 MG; Start 03/10/17 at 23:30 Nitroglycerin (Nitroglycerin (Sl Tab) 0.4 Mg) 1 tab Q5M PRN SL CHEST PAIN; Start 03/10/17 at 23:30 Acetaminophen (Tylenol Liquid) 650 mg Q6H PRN PO PAIN LEVEL 1-3 OR FEVER Last administered on 03/15/17 02:06; Admin Dose 650 MG; Start 03/10/17 at 23:30 Apixaban (Eliquis) 2.5 mg BID PO Last administered on 03/11/17 08:55; Admin Dose 2.5 MG; Start 03/11/17 at 09:00; Status Future Hold Buspirone HCl (Buspar) 10 mg BID PO Last administered on 03/16/17 08:18; Admin Dose 10 MG; Start 03/11/17 at 09:00 Citalopram Hydrobromide (Celexa) 20 mg DAILY PO Last administered on 03/16/17 08:16; Admin Dose 20 MG; Start 03/11/17 at 09:00 Lamotrigine (Lamictal) 25 mg DAILY PO Last administered on 03/16/17 08:18; Admin Dose 25 MG; Start 03/11/17 at 09:00 Mirtazapine (Remeron) 7.5 mg HS PO Last administered on 03/15/17 20:16; Admin Dose 7.5 MG; Start 03/11/17 at 21:00 Potassium Chloride (Klor-Con 10) 10 meq DAILY PO Last administered on 08:18; Admin Dose 10 MEQ; Start 03/11/17 at 09:00 Miscellaneous Information (Pending [facility] Order For Wound Care) This patient buitrago... PRN PRN XX WOUND CARE; Start 03/11/17 at 01:30 Miscellaneous Information 1 ea NOTE XX ; Start 03/12/17 at 11:00 Glucose (Glutose) 15 gm Q15M PRN PO DECREASED GLUCOSE; Start 03/12/17 at 11:00 Glucose (Glutose) 22.5 gm Q15M PRN PO DECREASED GLUCOSE; Start 03/12/17 at 11: 00 Dextrose (D50w Syringe) 25 ml Q15M PRN IV DECREASED GLUCOSE; Start 03/12/17 at 11:00 Dextrose (D50w Syringe) 50 ml Q15M PRN IV DECREASED GLUCOSE; Start 03/12/17 at 11:00 Glucagon (Glucagen) 1 mg Q15M PRN IM DECREASED GLUCOSE; Start 03/12/17 at 11: 00 Glucose (Glutose) 15 gm Q15M PRN BUCCAL DECREASED GLUCOSE; Start 03/12/17 at 11:00 Diltiazem HCl (Cardizem) 30 mg TID PO Last administered on 03/16/17 13:06; Admin Dose 30 MG; Start 03/14/17 at 11:31 Acetaminophen/ Hydrocodone Bitart ([place] (5/325)) 1 tab Q4H PRN PO PAIN Last administered on 03/15/17 20:17; Admin Dose 1 TAB; Start 03/14/17 at 12:00 Mupirocin (Bactroban) 1 applic BID TOP Last administered on 03/16/17 08:19; Admin Dose 1 APPLIC; Start 03/14/17 at 21:00 Sodium Biphosphate/ Sodium Phosphate (Fleet Enema) 133 ml DAILY PRN OR CONSTIPATION; Start 03/15/17 at 17:30 Assessment/Plan Additional Assessment/Plan IMP: 1. Hypoxemic Resp Insufficiency 2/2 ADHF 2. ADHF/HFpEF 3. Afib 4. Pleural effusions--transudative 5. Azotemia RECS: 1. Management as per Cards 2. Follow I/O's and Cr FOUZIA AMADOR MD Mar 16, 2017 13:36
--- NOTE | 2017-03-16 14:48 | PN ---
Date/Time of Note Date/Time of Note DATE: 03/16/17 TIME: 14:46 Assessment/Plan VTE Prophylaxis VTE Prophylaxis Intervention: other Lines/Catheters IV Catheter Type (from Nrs): Port a cath Urinary Cath still in place: Yes Reason Cath still needed: urinary retention Assessment/Plan Chief Complaint/Hosp Course 76 yo female with permanent atrial fibrillation who presented with acute diastolic CHF exacerbation and A Fib with RVR Acute diastolic CHF exacerbation:- - Continue lasix to euvolemia - Goals are palliative. Relief of pulmonary edema imperative to this Permanent A Fib: - Rate adequately controlled - 25 Toprol daily, home med - Hold eliquis given anemia and limited goals of care Discharge to hospice tomorrow or Saturday. Ready for dc DNR/DNI Problems: Subjective 24 Hr Interval Summary Free Text/Dictation Accepted to [facility] I spoke to daughter Grisel by phone, I informed her patient is ready for dc, however she prefers to go check out the SNF in person and ensure it's adequate. Prefers discharge tomorrow or Saturday. Patient is in agreement SOB is much improved, does not want thoracentesis again she says Exam/Review of Systems Vital Signs Vitals Vital Signs Date Time Temp Pulse Resp B/P Pulse Ox O2 Delivery O2 Flow Rate FiO2 03/16/17 12:26 97.5 84 19 103/50 91 03/16/17 08:00 Nasal Cannula 2.0 Intake and Output 03/15/17 03/15/17 03/16/17 15:00 23:00 07:00 Intake Total 680 ml 400 ml Output Total 1450 ml 1200 ml Balance -770 ml -800 ml Exam Mild JVD Breathing comfortably Results Result Diagram: 03/16/17 0524 03/16/17 0524 Results 24 hrs Laboratory Tests Test 03/16/17 05:24 White Blood Count 9.9 # Red Blood Count 2.36 L Hemoglobin 7.5 L Hematocrit 23.1 L Mean Corpuscular Volume 97.9 Mean Corpuscular Hemoglobin 31.8 Mean Corpuscular Hemoglobin Concent 32.5 Red Cell Distribution Width 16.8 H Platelet Count 108 #L Mean Platelet Volume 12.7 H Neutrophils % 63.7 Lymphocytes % 25.5 Monocytes % 9.7 Eosinophils % 0.3 Basophils % 0.3 Nucleated Red Blood Cells % 0.0 Neutrophils # 6.3 Lymphocytes # 2.5 Monocytes # 1.0 H Eosinophils # 0.0 Basophils # 0.0 Nucleated Red Blood Cells # 0.0 Sodium Level 142 Potassium Level 4.3 Chloride Level 104 Carbon Dioxide Level 29 Anion Gap 13 Blood Urea Nitrogen 35 H Creatinine 1.46 H Glucose Level 59 L Calcium Level 8.1 L Total Bilirubin 0.1 L Direct Bilirubin 0.00 Indirect Bilirubin 0.1 Aspartate Amino Transf (AST/SGOT) 18 Alanine Aminotransferase (ALT/SGPT) 33 Alkaline Phosphatase 81 Total Protein 4.7 L Albumin 2.1 L Globulin 2.60 Albumin/Globulin Ratio 0.80 Digoxin Level 1.0 Medications Medications Current Medications Ondansetron HCl (Zofran Inj) 4 mg Q6H PRN IV NAUSEA AND/OR VOMITING Last administered on 03/16/17 11:49; Admin Dose 4 MG; Start 03/10/17 at 23:30 Nitroglycerin (Nitroglycerin (Sl Tab) 0.4 Mg) 1 tab Q5M PRN SL CHEST PAIN; Start 03/10/17 at 23:30 Acetaminophen (Tylenol Liquid) 650 mg Q6H PRN PO PAIN LEVEL 1-3 OR FEVER Last administered on 03/15/17 02:06; Admin Dose 650 MG; Start 03/10/17 at 23:30 Apixaban (Eliquis) 2.5 mg BID PO Last administered on 03/11/17 08:55; Admin Dose 2.5 MG; Start 03/11/17 at 09:00; Status Future Hold Buspirone HCl (Buspar) 10 mg BID PO Last administered on 03/16/17 08:18; Admin Dose 10 MG; Start 03/11/17 at 09:00 Citalopram Hydrobromide (Celexa) 20 mg DAILY PO Last administered on 03/16/17 08:16; Admin Dose 20 MG; Start 03/11/17 at 09:00 Lamotrigine (Lamictal) 25 mg DAILY PO Last administered on 03/16/17 08:18; Admin Dose 25 MG; Start 03/11/17 at 09:00 Mirtazapine (Remeron) 7.5 mg HS PO Last administered on 03/15/17 20:16; Admin Dose 7.5 MG; Start 03/11/17 at 21:00 Potassium Chloride (Klor-Con 10) 10 meq DAILY PO Last administered on 08:18; Admin Dose 10 MEQ; Start 03/11/17 at 09:00 Miscellaneous Information (Pending [facility] Order For Wound Care) This patient buitrago... PRN PRN XX WOUND CARE; Start 03/11/17 at 01:30 Miscellaneous Information 1 ea NOTE XX ; Start 03/12/17 at 11:00 Glucose (Glutose) 15 gm Q15M PRN PO DECREASED GLUCOSE; Start 03/12/17 at 11:00 Glucose (Glutose) 22.5 gm Q15M PRN PO DECREASED GLUCOSE; Start 03/12/17 at 11: 00 Dextrose (D50w Syringe) 25 ml Q15M PRN IV DECREASED GLUCOSE; Start 03/12/17 at 11:00 Dextrose (D50w Syringe) 50 ml Q15M PRN IV DECREASED GLUCOSE; Start 03/12/17 at 11:00 Glucagon (Glucagen) 1 mg Q15M PRN IM DECREASED GLUCOSE; Start 03/12/17 at 11: 00 Glucose (Glutose) 15 gm Q15M PRN BUCCAL DECREASED GLUCOSE; Start 03/12/17 at 11:00 Diltiazem HCl (Cardizem) 30 mg TID PO Last administered on 03/16/17 13:06; Admin Dose 30 MG; Start 03/14/17 at 11:31 Acetaminophen/ Hydrocodone Bitart ([place] (5/325)) 1 tab Q4H PRN PO PAIN Last administered on 03/15/17 20:17; Admin Dose 1 TAB; Start 03/14/17 at 12:00 Mupirocin (Bactroban) 1 applic BID TOP Last administered on 03/16/17 08:19; Admin Dose 1 APPLIC; Start 03/14/17 at 21:00 Sodium Biphosphate/ Sodium Phosphate (Fleet Enema) 133 ml DAILY PRN [place] CONSTIPATION; Start 03/15/17 at 17:30 GIOVANNI HESTER MD Mar 16, 2017 14:48
--- NOTE | 2017-03-16 15:08 | CONS ---
Date/Time of Note Date/Time of Note DATE: 03/16/17 TIME: 15:06 Consult Date/Type/Reason Admit Date/Time Mar 10, 2017 at 20:32 Initial Consult Date 03/11/17 Type of Consultation: card Ordering Provider: MIRI CRUZ MD Subjective cardiology follow up note: S: D/W STAFF and rhythm was reviewed. pt remains in AFIB . HR is under good control no chest pain or pressure she has less sob and cough. s/p thoracentesis 03/14 O; General: no acute distress HEENT: NC/AT. pupils are equal. round. NECK: NO JVD. no stridor. CV: irregularly irregular. systolic murmur; no gallop or rubs. PULM: no wheezing . + b/l rhonchi. chest: s/p port on right chest. GI: SOFT, NT, ND, no rebound or guarding Extremity: + trace B/L LE edema . no clubbing. neuro: awake and alert, OX3. Psych: calm and pleasant rectal: deferred : deferred ECG reviewed Afib incomplete LBBB Echo reviewed; 1. There is mild enlargement of left atrium. 2. There is mild enlargement of right atrium. 3. Normal left ventricular systolic function. Normal left ventricular cavity size. Normal left ventricular wall thickness. Ejection fraction is visually estimated at 55 %. Tissue Doppler/Mitral Doppler indices are indeterminate in this study due to the presence of. 4. Mitral valve leaflets appear mildly thickened. Mild mitral annular calcification. Moderate mitral valve regurgitation. 5. No hemodynamically significant aortic stenosis by doppler. Aortic cusps appear mildly calcified. Trace aortic valve regurgitation. 6. Normal appearance of the tricuspid valve. Estimated peak PA systolic pressure 68 mmHg. There is moderate to severe tricuspid regurgitation. 7. Dilated IVC without respiratory collapse consistent with elevated right atrial pressure. Objective Vital Signs Date Time Temp Pulse Resp B/P Pulse Ox O2 Delivery O2 Flow Rate FiO2 03/16/17 12:26 97.5 84 19 103/50 91 03/16/17 08:00 Nasal Cannula 2.0 Intake and Output 03/15/17 03/15/17 03/16/17 15:00 23:00 07:00 Intake Total 680 ml 400 ml Output Total 1450 ml 1200 ml Balance -770 ml -800 ml Results/Medications Result Diagram: 12/2/17 0524 12/2/17 0524 Results 24 hrs Laboratory Tests Test 03/16/17 05:24 White Blood Count 9.9 # Red Blood Count 2.36 L Hemoglobin 7.5 L Hematocrit 23.1 L Mean Corpuscular Volume 97.9 Mean Corpuscular Hemoglobin 31.8 Mean Corpuscular Hemoglobin Concent 32.5 Red Cell Distribution Width 16.8 H Platelet Count 108 #L Mean Platelet Volume 12.7 H Neutrophils % 63.7 Lymphocytes % 25.5 Monocytes % 9.7 Eosinophils % 0.3 Basophils % 0.3 Nucleated Red Blood Cells % 0.0 Neutrophils # 6.3 Lymphocytes # 2.5 Monocytes # 1.0 H Eosinophils # 0.0 Basophils # 0.0 Nucleated Red Blood Cells # 0.0 Sodium Level 142 Potassium Level 4.3 Chloride Level 104 Carbon Dioxide Level 29 Anion Gap 13 Blood Urea Nitrogen 35 H Creatinine 1.46 H Glucose Level 59 L Calcium Level 8.1 L Total Bilirubin 0.1 L Direct Bilirubin 0.00 Indirect Bilirubin 0.1 Aspartate Amino Transf (AST/SGOT) 18 Alanine Aminotransferase (ALT/SGPT) 33 Alkaline Phosphatase 81 Total Protein 4.7 L Albumin 2.1 L Globulin 2.60 Albumin/Globulin Ratio 0.80 Digoxin Level 1.0 Medications Current Medications Ondansetron HCl (Zofran Inj) 4 mg Q6H PRN IV NAUSEA AND/OR VOMITING Last administered on 03/16/17 11:49; Admin Dose 4 MG; Start 03/10/17 at 23:30 Nitroglycerin (Nitroglycerin (Sl Tab) 0.4 Mg) 1 tab Q5M PRN SL CHEST PAIN; Start 03/10/17 at 23:30 Acetaminophen (Tylenol Liquid) 650 mg Q6H PRN PO PAIN LEVEL 1-3 OR FEVER Last administered on 03/15/17 02:06; Admin Dose 650 MG; Start 03/10/17 at 23:30 Apixaban (Eliquis) 2.5 mg BID PO Last administered on 03/11/17 08:55; Admin Dose 2.5 MG; Start 03/11/17 at 09:00; Status Future Hold Buspirone HCl (Buspar) 10 mg BID PO Last administered on 03/16/17 08:18; Admin Dose 10 MG; Start 03/11/17 at 09:00 Citalopram Hydrobromide (Celexa) 20 mg DAILY PO Last administered on 03/16/17 08:16; Admin Dose 20 MG; Start 03/11/17 at 09:00 Lamotrigine (Lamictal) 25 mg DAILY PO Last administered on 03/16/17 08:18; Admin Dose 25 MG; Start 03/11/17 at 09:00 Mirtazapine (Remeron) 7.5 mg HS PO Last administered on 03/15/17 20:16; Admin Dose 7.5 MG; Start 03/11/17 at 21:00 Potassium Chloride (Klor-Con 10) 10 meq DAILY PO Last administered on 08:18; Admin Dose 10 MEQ; Start 03/11/17 at 09:00 Miscellaneous Information (Pending [facility] Order For Wound Care) This patient buitrago... PRN PRN XX WOUND CARE; Start 03/11/17 at 01:30 Miscellaneous Information 1 ea NOTE XX ; Start 03/12/17 at 11:00 Glucose (Glutose) 15 gm Q15M PRN PO DECREASED GLUCOSE; Start 03/12/17 at 11:00 Glucose (Glutose) 22.5 gm Q15M PRN PO DECREASED GLUCOSE; Start 03/12/17 at 11: 00 Dextrose (D50w Syringe) 25 ml Q15M PRN IV DECREASED GLUCOSE; Start 03/12/17 at 11:00 Dextrose (D50w Syringe) 50 ml Q15M PRN IV DECREASED GLUCOSE; Start 03/12/17 at 11:00 Glucagon (Glucagen) 1 mg Q15M PRN IM DECREASED GLUCOSE; Start 03/12/17 at 11: 00 Glucose (Glutose) 15 gm Q15M PRN BUCCAL DECREASED GLUCOSE; Start 03/12/17 at 11:00 Diltiazem HCl (Cardizem) 30 mg TID PO Last administered on 03/16/17 13:06; Admin Dose 30 MG; Start 03/14/17 at 11:31 Acetaminophen/ Hydrocodone Bitart ([place] (5/325)) 1 tab Q4H PRN PO PAIN Last administered on 03/15/17 20:17; Admin Dose 1 TAB; Start 03/14/17 at 12:00 Mupirocin (Bactroban) 1 applic BID TOP Last administered on 03/16/17 08:19; Admin Dose 1 APPLIC; Start 03/14/17 at 21:00 Sodium Biphosphate/ Sodium Phosphate (Fleet Enema) 133 ml DAILY PRN [place] CONSTIPATION; Start 03/15/17 at 17:30 Assessment/Plan Chief Complaint/Hosp Course 1. Afib: chronic: with RVR on admission, but HR is better now 2. s/p shock: probably septic : BP has improved now 3. CHF: acute on chronic: due to diastolic heart failure 4. pulm HTN 5. hx HTN: now hypotensive 6. large pleural effusion 7. hx CAD 8. Hx CABG 9. hx Bipolar d/o 10. anemia 11. CKD 12. History of most likely multiple myeloma: Patient says that she is being followed as an outpatient by her oncologist which does not remember the name of Recommendations: eliquis is on hold due to severe anemia. Her blood pressure medication is stable now. cont cardizem low dose dig prn to control HR Antibiotic management will be deferred to the internal medicine team. We will correct electrolytes as needed basis. pt is back on IV lasix . f/u renal fx. will dec to qd only Nutritional support to be continued as well. CODE STATUS is DNR. hospice eval is pending Thank you for his referral. I will continue to follow along with you. Rut Jerome MD [facility] Problems: RUT JEROME MD Mar 16, 2017 15:08
[2017-03-16] MEDS: HYDROCODONE/APAP (5/325) TAB PO PRN ×2 (15:46→21:06)
--- NOTE | 2017-03-16 16:45 | RADRPT ---
PROCEDURE: XR Chest. CLINICAL INDICATION: CHF TECHNIQUE: Frontal chest x-ray was obtained. COMPARISON: Chest x-ray March 14, 2017 FINDINGS: Again noted is a right IJ Port-A-Cath. The patient is post CABG. Mediastinum is not widened. No raul r masses seen. There is hazy opacification again seen in the left lower lobe. Small effusions are no rishi. There is no pneumothorax. IMPRESSION: Hazy left basilar infiltrate. Small effusions. No significant change. .Kody Lopes MD, MD Date Time Electronically viewed and signed by .Kody Lopes MD, MD on 03/16/2017 16:45 .A/
[2017-03-16] MEDS: MIRTAZAPINE 15 MG TAB PO SCH (21:05)
[2017-03-17] VITALS (8 sets, daily range): BP systolic 119–132; BP diastolic 57–67; PULSE 80–85; RESP 16–18
[2017-03-17 05:59] LABS: HEMATOCRIT 23.5 % (37.0-47.0); HEMOGLOBIN 7.5 g/dl (12.0-16.0); MEAN CORPUSCULAR HEMOGLOBIN 31.6 pg (29.0-33.0); MEAN CORPUSCULAR HGB CONC 31.9 g/dl (32.0-37.0); MEAN CORPUSCULAR VOLUME 99.2 fl (82.0-101.0); MEAN PLATELET VOLUME 12.2 fl (7.4-10.4); PLATELET COUNT 113 10^3/UL (140-415); RED BLOOD COUNT 2.37 10^6/ul (4.20-5.40); RED CELL DISTRIBUTION WIDTH 16.9 % (11.5-14.5); WHITE BLOOD COUNT 7.4 10^3/ul (4.8-10.8)
[2017-03-17 06:16] LABS: POSITIVE DIFF @See below
[2017-03-17 06:55] LABS: ALBUMIN 2.1 g/dl (3.3-4.9); ALBUMIN/GLOBULIN RATIO 0.87; CALCIUM 7.8 mg/dl (8.4-10.2); CREATININE 1.46 mg/dl (0.44-1.00); POTASSIUM 3.9 mmol/L (3.5-5.1); TOTAL PROTEIN 4.5 g/dl (6.1-8.1)
[2017-03-17 08:06] LABS: ANISOCYTOSIS 2+ (0-0); GIANT THROMBO% (M) 2 % (0-0); MONOCYTES % (M) 3 % (0-11); OVALOCYTES 2+ (0-0); PLATELET ESTIMATE DECREASED; POIKILOCYTOSIS 2+ (0-0); POLYCHROMASIA 1+ (0-0); SCHISTOCYTES 1+ (0-0); TEAR DROP CELLS 1+ (0-0)
[2017-03-17] MEDS ORDERED: FUROSEMIDE 40 MG INJ IV SCH (09:00)
[2017-03-17] MEDS: BUSPIRONE 10 MG TAB PO SCH (09:06)
[2017-03-17] MEDS: LAMOTRIGINE 25 MG TAB PO SCH (09:06)
[2017-03-17] MEDS: POTASSIUM CHLORIDE (SR) 10 MEQ TAB PO SCH (09:06)
[2017-03-17] MEDS: CITALOPRAM 20 MG TAB PO SCH (09:06)
[2017-03-17] MEDS: DILTIAZEM 30 MG TAB PO SCH ×2 (09:07→14:21)
[2017-03-17] MEDS: BALSAM PERU/CASTOR OIL 60 GM TUBE TOP SCH (09:10)
[2017-03-17] MEDS: MUPIROCIN 2% 22 GM OINT TOP SCH (09:10)
[2017-03-17] MEDS: ACETYLCYSTEINE 20% 4 ML VIAL NEB SCH ×2 (09:20→12:22)
[2017-03-17] MEDS: ALBUTEROL/IPRATROPIUM (NEB) 3 ML AMP HHN SCH ×2 (09:20→12:22)
--- NOTE | 2017-03-17 10:29 | DS ---
Date/Time of Note Date/Time of Note DATE: 03/17/17 TIME: 10:26 Discharge Summary Admission/Discharge Info Admit Date/Time Mar 10, 2017 at 20:32 Discharge Date/Time Discharge Diagnosis Acute diastolic CHF exacerbation Patient Condition: Stable Hospital Course On presentation the patient was found to be in rapid atrial fibrillation and hypoxic respiratory failure. She was gievn diltaizem. Hypotension then developed, breifely requiring pressors for hemodynamic support. Diltiazem was stopped. XR showed bilateral pleural effusions wtih vascular congestion. She was treated with IV lasix 40 mg BID with good effect. Respiratoyr status improved markedly. She underwent therapeutic/diagnostic thoracentesis which was consistent with CHF effusions. TTE showed normal systolic LV function and no valvulopathies. The patient and her family expressed interested in hospice referral and these arranagements were made for after discharge. She will be discharged on lasix 20 BID. Eliquis was stopped given anemia and limited goals of care. She and her daughter Grisel were counseled on the need for close monitoring of serum electrolytes, volume status, and lasix dosign as an outpatient and that she would need to be evaluated by a doctor within 1-2 weeks after discharge. Home Meds Reported Medications Mirtazapine* (Mirtazapine*) 7.5 Mg Tablet, 7.5 MG PO HS, TAB 03/10/17 Guaifenesin-Dextromethorphan* (Robitussin* DM) 100MG/10MG/5ML Syrup, 10 ML PO Q6H Y for COUGH, ML 03/10/17 Sodium Bicarbonate* (Sodium Bicarbonate*) 650 Mg Tablet, 650 MG PO TID, TAB 03/10/17 Acetaminophen* (Acetaminophen*) 650 Mg Tablet, 650 MG PO Q4 Y for PAIN AND OR ELEVATED TEMP, #30 TAB 03/10/17 Ascorbic Acid* (Vitamin C*) 500 Mg Capsule.sa, 500 MG PO BID, CAP 03/10/17 Amino Acids/Protein Hydrolys (PRO-STAT LIQUID) 30 Ml Liquid.pkt, 30 ML PO BID 03/10/17 Potassium Chloride* (K-Dur*) 10 Meq Tab.prt.sr, 10 MEQ PO DAILY, TAB 03/10/17 Pantoprazole* (Protonix*) 40 Mg Tablet.dr, 40 MG PO DAILY, TAB 03/10/17 Hydrocodone/Acetaminophen ([place] 5-325 Tablet) 1 Each Tablet, 1 EACH PO BID Y for PAIN MANAGEMENT, TAB 03/10/17 Hydrocodone/Acetaminophen ([place] 5-325 Tablet) 1 Each Tablet, 1 EACH PO Q6 Y for MODERATE PAIN LEVEL 4-6, TAB 03/10/17 Multivitamins* (Theragran*) 1 Tab Tab, 1 TAB PO DAILY, TAB 03/10/17 Metoprolol Succinate* (Toprol XL*) 25 Mg Tab.sr.24h, 25 MG PO DAILY, #30 TAB HOLD IF SBP BELOW 110 OR HR BELOW 60 03/10/17 Melatonin (Melatonin) 5 Mg Tablet, 5 MG PO HS, TAB 03/10/17 Atorvastatin* (Atorvastatin*) 80 Mg Tablet, 80 MG PO QHS, #30 TAB 03/10/17 Levofloxacin* (Levofloxacin*) 250 Mg Tablet, 250 MG PO DAILY, TAB STOP 11-03/10/17 Levalbuterol Hcl* (Levalbuterol Hcl*) 0.63 Mg/3 Ml Vial.neb, 0.63 MG INHALATION Q8 Y for WHEEZING AND SOB, VIAL 03/10/17 Levalbuterol Hcl* (Levalbuterol Hcl*) 0.63 Mg/3 Ml Vial.neb, 0.63 MG INHALATION Q4 Y for WHEEZING AND SOB, VIAL 03/10/17 Furosemide* (Lasix*) 20 Mg Tablet, 20 MG PO DAILY, TAB 03/10/17 Lamotrigine* (Lamotrigine*) 25 Mg Tablet, 25 MG PO DAILY, TAB 03/10/17 Lactobacillus Acidophilus* (Lactinex*) 1 Tab Chew, 1 TAB PO DAILY, TAB 03/10/17 Ferrous Sulfate* (Ferrous Sulfate*) 325 Mg Tabec, 325 MG PO BID, TAB 03/10/17 Citalopram Hydrobromide* (Celexa*) 20 Mg Tablet, 20 MG PO DAILY, #30 TAB 03/10/17 Buspirone Hcl* (Buspirone Hcl*) 10 Mg Tab, 10 MG PO BID, TAB 03/10/17 Lorazepam* (Ativan*) 0.5 Mg Tablet, 0.5 MG PO Q6 Y for ANXIETY, #60 TAB 03/10/17 Apixaban* (Eliquis*) 2.5 Mg Tablet, 2.5 MG PO BID, TAB 03/10/17 Zolpidem Tartrate* (Ambien*) 5 Mg Tablet, 5 MG PO QHS Y for INSOMNIA, #30 TAB 03/10/17 Acyclovir* (Acyclovir*) 400 Mg Tablet, 400 MG PO MONWEDFRI, TAB 03/10/17 Primary Care Provider Eyad Webber Pending Labs Laboratory Tests Test 03/17/17 05:11 White Blood Count 7.410^3/ul (4.8-10.8) Red Blood Count 2.3710^6/ul (4.20-5.40) Hemoglobin 7.5g/dl (12.0-16.0) Hematocrit 23.5% (37.0-47.0) Mean Corpuscular Volume 99.2fl (82.0-101.0) Mean Corpuscular Hemoglobin 31.6pg (29.0-33.0) Mean Corpuscular Hemoglobin Concent 31.9g/dl (32.0-37.0) Red Cell Distribution Width 16.9% (11.5-14.5) Platelet Count 91798^3/UL (140-415) Mean Platelet Volume 12.2fl (7.4-10.4) Neutrophils % % (39.0-77.0) Segmented Neutrophils % (Manual) 64% (39-77) Band Neutrophils % (Manual) 1% (0-4) Lymphocytes % % (15.0-51.0) Lymphocytes % (Manual) 32% (15-51) Monocytes % % (0.0-11.0) Monocytes % (Manual) 3% (0-11) Eosinophils % % (0.0-7.0) Basophils % % (0.0-2.0) Nucleated Red Blood Cells % 0.0/100WBC (0.0-0.0) Neutrophils # 10^3/ul (1.6-7.5) Neutrophils # (Manual) 4.710^3/ul (1.7-7.5) Band Neutrophils # 0.010^3/ul (0.0-0.6) Absolute Lymphocytes (Manual) 2.310^3/ul (0.8-2.9) Lymphocytes # 10^3/ul (0.8-2.9) Monocytes # 10^3/ul (0.3-0.9) Absolute Monocytes (Manual) 0.210^3/ul (0.3-0.9) Eosinophils # 10^3/ul (0.0-0.5) Basophils # 10^3/ul (0.0-0.1) Nucleated Red Blood Cells # 10^3/ul (0.0-0.0) Platelet Estimate DECREASED Giant Platelets 2% (0-0) Polychromasia 1+ (0-0) Poikilocytosis 2+ (0-0) Anisocytosis 2+ (0-0) Macrocytosis 1+ (0-0) Tear Drop Cells 1+ (0-0) Ovalocytes 2+ (0-0) Schistocytes 1+ (0-0) Sodium Level 145mmol/L (135-144) Potassium Level 3.9mmol/L (3.5-5.1) Chloride Level 103mmol/L (97-110) Carbon Dioxide Level 32mmol/L (21-31) Anion Gap 14 (8-16) Blood Urea Nitrogen 36mg/dl (7-20) Creatinine 1.46mg/dl (0.44-1.00) Glucose Level 67mg/dl (70-220) Calcium Level 7.8mg/dl (8.4-10.2) Total Bilirubin 0.0mg/dl (0.2-1.3) Direct Bilirubin 0.00mg/dl (0.00-0.20) Indirect Bilirubin 0.0mg/dl (0-1.1) Aspartate Amino Transf (AST/SGOT) 14IU/L (15-46) Alanine Aminotransferase (ALT/SGPT) 32IU/L (13-69) Alkaline Phosphatase 85IU/L (42-121) Total Protein 4.5g/dl (6.1-8.1) Albumin 2.1g/dl (3.3-4.9) Globulin 2.40g/dl (1.3-3.2) Albumin/Globulin Ratio 0.87 GIOVANNI HESTER MD Mar 17, 2017 10:29
--- NOTE | 2017-03-17 13:42 | CONS ---
Date/Time of Note Date/Time of Note DATE: 03/17/17 TIME: 13:41 Consult Date/Type/Reason Admit Date/Time Mar 10, 2017 at 20:32 Initial Consult Date 03/11/17 Type of Consultation: Pulm Ordering Provider: MIRI CRUZ MD Subjective No events Objective Vital Signs Date Time Temp Pulse Resp B/P Pulse Ox O2 Delivery O2 Flow Rate FiO2 03/17/17 12:33 86 20 Nasal Cannula 2.0 03/17/17 12:20 98.2 132/57 99 Intake and Output 03/16/17 03/16/17 03/17/17 14:59 22:59 06:59 Intake Total 400 ml Output Total 300 ml Balance 100 ml Exam HEENT: Neck supple; no JVD; no LAD CVS: Irreg irreg, S1 and S2 CHEST: Decreased BS at bases ABD: Soft, NT, + BS EXT: No c/c/e Results/Medications Result Diagram: 03/17/17 0511 03/17/17 0511 Results 24 hrs Laboratory Tests Test 03/17/17 05:11 White Blood Count 7.4 # Red Blood Count 2.37 L Hemoglobin 7.5 L Hematocrit 23.5 L Mean Corpuscular Volume 99.2 Mean Corpuscular Hemoglobin 31.6 Mean Corpuscular Hemoglobin Concent 31.9 L Red Cell Distribution Width 16.9 H Platelet Count 113 L Mean Platelet Volume 12.2 H Neutrophils % Segmented Neutrophils % (Manual) 64 Band Neutrophils % (Manual) 1 Lymphocytes % Lymphocytes % (Manual) 32 Monocytes % Monocytes % (Manual) 3 Eosinophils % Basophils % Nucleated Red Blood Cells % 0.0 Neutrophils # Neutrophils # (Manual) 4.7 Band Neutrophils # 0.0 Absolute Lymphocytes (Manual) 2.3 Lymphocytes # Monocytes # Absolute Monocytes (Manual) 0.2 L Eosinophils # Basophils # Nucleated Red Blood Cells # Platelet Estimate DECREASED Giant Platelets 2 H Polychromasia 1+ Poikilocytosis 2+ Anisocytosis 2+ Macrocytosis 1+ Tear Drop Cells 1+ Ovalocytes 2+ Schistocytes 1+ Sodium Level 145 H Potassium Level 3.9 Chloride Level 103 Carbon Dioxide Level 32 H Anion Gap 14 Blood Urea Nitrogen 36 H Creatinine 1.46 H Glucose Level 67 L Calcium Level 7.8 L Total Bilirubin 0.0 L Direct Bilirubin 0.00 Indirect Bilirubin 0.0 Aspartate Amino Transf (AST/SGOT) 14 L Alanine Aminotransferase (ALT/SGPT) 32 Alkaline Phosphatase 85 Total Protein 4.5 L Albumin 2.1 L Globulin 2.40 Albumin/Globulin Ratio 0.87 Medications Current Medications Ondansetron HCl (Zofran Inj) 4 mg Q6H PRN IV NAUSEA AND/OR VOMITING Last administered on 03/16/17 11:49; Admin Dose 4 MG; Start 03/10/17 at 23:30 Nitroglycerin (Nitroglycerin (Sl Tab) 0.4 Mg) 1 tab Q5M PRN SL CHEST PAIN; Start 03/10/17 at 23:30 Acetaminophen (Tylenol Liquid) 650 mg Q6H PRN PO PAIN LEVEL 1-3 OR FEVER Last administered on 03/15/17 02:06; Admin Dose 650 MG; Start 03/10/17 at 23:30 Apixaban (Eliquis) 2.5 mg BID PO Last administered on 03/11/17 08:55; Admin Dose 2.5 MG; Start 03/11/17 at 09:00; Status Future Hold Buspirone HCl (Buspar) 10 mg BID PO Last administered on 03/17/17 09:06; Admin Dose 10 MG; Start 03/11/17 at 09:00 Citalopram Hydrobromide (Celexa) 20 mg DAILY PO Last administered on 03/17/17 09:06; Admin Dose 20 MG; Start 03/11/17 at 09:00 Lamotrigine (Lamictal) 25 mg DAILY PO Last administered on 03/17/17 09:06; Admin Dose 25 MG; Start 03/11/17 at 09:00 Mirtazapine (Remeron) 7.5 mg HS PO Last administered on 03/16/17 21:05; Admin Dose 7.5 MG; Start 03/11/17 at 21:00 Potassium Chloride (Klor-Con 10) 10 meq DAILY PO Last administered on 09:06; Admin Dose 10 MEQ; Start 03/11/17 at 09:00 Miscellaneous Information (Pending [facility] Order For Wound Care) This patient buitrago... PRN PRN XX WOUND CARE; Start 03/11/17 at 01:30 Miscellaneous Information 1 ea NOTE XX ; Start 03/12/17 at 11:00 Glucose (Glutose) 15 gm Q15M PRN PO DECREASED GLUCOSE; Start 03/12/17 at 11:00 Glucose (Glutose) 22.5 gm Q15M PRN PO DECREASED GLUCOSE; Start 03/12/17 at 11: 00 Dextrose (D50w Syringe) 25 ml Q15M PRN IV DECREASED GLUCOSE; Start 03/12/17 at 11:00 Dextrose (D50w Syringe) 50 ml Q15M PRN IV DECREASED GLUCOSE; Start 03/12/17 at 11:00 Glucagon (Glucagen) 1 mg Q15M PRN IM DECREASED GLUCOSE; Start 03/12/17 at 11: 00 Glucose (Glutose) 15 gm Q15M PRN BUCCAL DECREASED GLUCOSE; Start 03/12/17 at 11:00 Diltiazem HCl (Cardizem) 30 mg TID PO Last administered on 03/17/17 09:07; Admin Dose 30 MG; Start 03/14/17 at 11:31 Acetaminophen/ Hydrocodone Bitart ([place] (5/325)) 1 tab Q4H PRN PO PAIN Last administered on 03/16/17 21:06; Admin Dose 1 TAB; Start 03/14/17 at 12:00 Mupirocin (Bactroban) 1 applic BID TOP Last administered on 03/17/17 09:10; Admin Dose 1 APPLIC; Start 03/14/17 at 21:00 Sodium Biphosphate/ Sodium Phosphate (Fleet Enema) 133 ml DAILY PRN [place] CONSTIPATION; Start 03/15/17 at 17:30 Furosemide (Lasix) 40 mg DAILY IV Last administered on 03/17/17 09:09; Admin Dose 40 MG; Start 03/17/17 at 09:00 Assessment/Plan Additional Assessment/Plan IMP: 1. Hypoxemic Resp Insufficiency 2/2 ADHF 2. ADHF/HFpEF 3. Afib 4. Pleural effusions--transudative 5. Azotemia RECS: 1. Management as per Cards 2. Agree with Hospice referral an outpatient FOUZIA AMADOR MD Mar 17, 2017 13:42
[2017-03-17] MEDS: HYDROCODONE/APAP (5/325) TAB PO PRN (14:20)
--- NOTE | 2017-03-17 14:37 | CONS ---
Date/Time of Note Date/Time of Note DATE: 03/17/17 TIME: 14:36 Consult Date/Type/Reason Admit Date/Time Mar 10, 2017 at 20:32 Initial Consult Date 03/11/17 Type of Consultation: card Ordering Provider: MIRI CRUZ MD Subjective cardiology follow up note: S: D/W STAFF and rhythm was reviewed. pt remains in AFIB . HR is under good control D/W daughter no chest pain or pressure she has less sob and cough and is breathing much better now s/p thoracentesis 03/14 O; General: no acute distress HEENT: NC/AT. pupils are equal. round. NECK: NO JVD. no stridor. CV: irregularly irregular. systolic murmur; no gallop or rubs. PULM: no wheezing . + b/l rhonchi. chest: s/p port on right chest. GI: SOFT, NT, ND, no rebound or guarding Extremity: + trace B/L LE edema . no clubbing. neuro: awake and alert, OX3. Psych: calm and pleasant rectal: deferred : deferred ECG reviewed Afib incomplete LBBB Echo reviewed; 1. There is mild enlargement of left atrium. 2. There is mild enlargement of right atrium. 3. Normal left ventricular systolic function. Normal left ventricular cavity size. Normal left ventricular wall thickness. Ejection fraction is visually estimated at 55 %. Tissue Doppler/Mitral Doppler indices are indeterminate in this study due to the presence of. 4. Mitral valve leaflets appear mildly thickened. Mild mitral annular calcification. Moderate mitral valve regurgitation. 5. No hemodynamically significant aortic stenosis by doppler. Aortic cusps appear mildly calcified. Trace aortic valve regurgitation. 6. Normal appearance of the tricuspid valve. Estimated peak PA systolic pressure 68 mmHg. There is moderate to severe tricuspid regurgitation. 7. Dilated IVC without respiratory collapse consistent with elevated right atrial pressure. Objective Vital Signs Date Time Temp Pulse Resp B/P Pulse Ox O2 Delivery O2 Flow Rate FiO2 03/17/17 12:33 86 20 Nasal Cannula 2.0 03/17/17 12:20 98.2 132/57 99 Intake and Output 03/16/17 03/16/17 03/17/17 15:00 23:00 07:00 Intake Total 400 ml Output Total 300 ml Balance 100 ml Results/Medications Result Diagram: 03/17/17 0511 03/17/17 0511 Results 24 hrs Laboratory Tests Test 03/17/17 05:11 White Blood Count 7.4 # Red Blood Count 2.37 L Hemoglobin 7.5 L Hematocrit 23.5 L Mean Corpuscular Volume 99.2 Mean Corpuscular Hemoglobin 31.6 Mean Corpuscular Hemoglobin Concent 31.9 L Red Cell Distribution Width 16.9 H Platelet Count 113 L Mean Platelet Volume 12.2 H Neutrophils % Segmented Neutrophils % (Manual) 64 Band Neutrophils % (Manual) 1 Lymphocytes % Lymphocytes % (Manual) 32 Monocytes % Monocytes % (Manual) 3 Eosinophils % Basophils % Nucleated Red Blood Cells % 0.0 Neutrophils # Neutrophils # (Manual) 4.7 Band Neutrophils # 0.0 Absolute Lymphocytes (Manual) 2.3 Lymphocytes # Monocytes # Absolute Monocytes (Manual) 0.2 L Eosinophils # Basophils # Nucleated Red Blood Cells # Platelet Estimate DECREASED Giant Platelets 2 H Polychromasia 1+ Poikilocytosis 2+ Anisocytosis 2+ Macrocytosis 1+ Tear Drop Cells 1+ Ovalocytes 2+ Schistocytes 1+ Sodium Level 145 H Potassium Level 3.9 Chloride Level 103 Carbon Dioxide Level 32 H Anion Gap 14 Blood Urea Nitrogen 36 H Creatinine 1.46 H Glucose Level 67 L Calcium Level 7.8 L Total Bilirubin 0.0 L Direct Bilirubin 0.00 Indirect Bilirubin 0.0 Aspartate Amino Transf (AST/SGOT) 14 L Alanine Aminotransferase (ALT/SGPT) 32 Alkaline Phosphatase 85 Total Protein 4.5 L Albumin 2.1 L Globulin 2.40 Albumin/Globulin Ratio 0.87 Medications Current Medications Ondansetron HCl (Zofran Inj) 4 mg Q6H PRN IV NAUSEA AND/OR VOMITING Last administered on 03/16/17 11:49; Admin Dose 4 MG; Start 03/10/17 at 23:30 Nitroglycerin (Nitroglycerin (Sl Tab) 0.4 Mg) 1 tab Q5M PRN SL CHEST PAIN; Start 03/10/17 at 23:30 Acetaminophen (Tylenol Liquid) 650 mg Q6H PRN PO PAIN LEVEL 1-3 OR FEVER Last administered on 03/15/17 02:06; Admin Dose 650 MG; Start 03/10/17 at 23:30 Apixaban (Eliquis) 2.5 mg BID PO Last administered on 03/11/17 08:55; Admin Dose 2.5 MG; Start 03/11/17 at 09:00; Status Future Hold Buspirone HCl (Buspar) 10 mg BID PO Last administered on 03/17/17 09:06; Admin Dose 10 MG; Start 03/11/17 at 09:00 Citalopram Hydrobromide (Celexa) 20 mg DAILY PO Last administered on 03/17/17 09:06; Admin Dose 20 MG; Start 03/11/17 at 09:00 Lamotrigine (Lamictal) 25 mg DAILY PO Last administered on 03/17/17 09:06; Admin Dose 25 MG; Start 03/11/17 at 09:00 Mirtazapine (Remeron) 7.5 mg HS PO Last administered on 03/16/17 21:05; Admin Dose 7.5 MG; Start 03/11/17 at 21:00 Potassium Chloride (Klor-Con 10) 10 meq DAILY PO Last administered on 09:06; Admin Dose 10 MEQ; Start 03/11/17 at 09:00 Miscellaneous Information (Pending [facility] Order For Wound Care) This patient buitrago... PRN PRN XX WOUND CARE; Start 03/11/17 at 01:30 Miscellaneous Information 1 ea NOTE XX ; Start 03/12/17 at 11:00 Glucose (Glutose) 15 gm Q15M PRN PO DECREASED GLUCOSE; Start 03/12/17 at 11:00 Glucose (Glutose) 22.5 gm Q15M PRN PO DECREASED GLUCOSE; Start 03/12/17 at 11: 00 Dextrose (D50w Syringe) 25 ml Q15M PRN IV DECREASED GLUCOSE; Start 03/12/17 at 11:00 Dextrose (D50w Syringe) 50 ml Q15M PRN IV DECREASED GLUCOSE; Start 03/12/17 at 11:00 Glucagon (Glucagen) 1 mg Q15M PRN IM DECREASED GLUCOSE; Start 03/12/17 at 11: 00 Glucose (Glutose) 15 gm Q15M PRN BUCCAL DECREASED GLUCOSE; Start 03/12/17 at 11:00 Diltiazem HCl (Cardizem) 30 mg TID PO Last administered on 03/17/17 14:21; Admin Dose 30 MG; Start 03/14/17 at 11:31 Acetaminophen/ Hydrocodone Bitart (Addis (5/325)) 1 tab Q4H PRN PO PAIN Last administered on 03/17/17 14:20; Admin Dose 1 TAB; Start 03/14/17 at 12:00 Mupirocin (Bactroban) 1 applic BID TOP Last administered on 03/17/17 09:10; Admin Dose 1 APPLIC; Start 03/14/17 at 21:00 Sodium Biphosphate/ Sodium Phosphate (Fleet Enema) [address] CONSTIPATION; Start 03/15/17 at 17:30 Furosemide (Lasix) 40 mg DAILY IV Last administered on 03/17/17 09:09; Admin Dose 40 MG; Start 03/17/17 at 09:00 Assessment/Plan Chief Complaint/Hosp Course 1. Afib: chronic: with RVR on admission, but HR is better now 2. s/p shock: probably septic : BP has improved now 3. CHF: acute on chronic: due to diastolic heart failure 4. pulm HTN 5. hx HTN: now hypotensive 6. large pleural effusion 7. hx CAD 8. Hx CABG 9. hx Bipolar d/o 10. anemia 11. CKD 12. History of most likely multiple myeloma: Patient says that she is being followed as an outpatient by her oncologist which does not remember the name of Recommendations: eliquis is on hold due to severe anemia. Her blood pressure medication is stable now. cont cardizem low dose dig prn to control HR Antibiotic management will be deferred to the internal medicine team. We will correct electrolytes as needed basis. pt is back on IV lasix . f/u renal fx. will dec to qd only Nutritional support to be continued as well. CODE STATUS is DNR. PT IS being discharged to get hospice care. Thank you for his referral. I will continue to follow along with you. Rut Jerome MD [facility] Problems: RUT JEROME MD Mar 17, 2017 14:37
== END 2017-03-17 15:33 | DRG 871 ==
LOC: E/R 18:01 → ICU 20:32 → MS4 03-11 00:13
PROVIDERS: ADMIT Internal Medicine; ATTEND Internal Medicine
PROC: 0W993ZX Drainage of Right Pleural Cavity, Percutaneous Approach, Diagnostic (ICD-10-PCS; principal; 2017-03-14)
DX: A41.9 Sepsis, unspecified organism (principal); R65.21 Severe sepsis with septic shock; J96.01 Acute respiratory failure with hypoxia; I50.33 Acute on chronic diastolic (congestive) heart failure; L89.153 Pressure ulcer of sacral region, stage 3; J90 Pleural effusion, not elsewhere classified; N17.9 Acute kidney failure, unspecified; I13.0 Hypertensive heart and chronic kidney disease with heart failure and stage 1 through stage 4 chronic kidney disease, or unspecified chronic kidney disease; J98.11 Atelectasis; I48.2 Chronic atrial fibrillation; I27.20 Pulmonary hypertension, unspecified; J44.9 Chronic obstructive pulmonary disease, unspecified; I25.10 Atherosclerotic heart disease of native coronary artery without angina pectoris; F31.9 Bipolar disorder, unspecified; N18.9 Chronic kidney disease, unspecified; D64.9 Anemia, unspecified; Z66 Do not resuscitate; Z95.1 Presence of aortocoronary bypass graft; Z85.79 Personal history of other malignant neoplasms of lymphoid, hematopoietic and related tissues
CPT/HCPCS: 32555; 36415; 36600; 71010; 76604; 80048; 80053; 80061; 80162; 81003; 82550; 82553; 82803; 82945; 82962; 83036; 83605; 83615; 83735; 83880; 84145; 84157; 84439; 84443; 84484; 85025; 85610; 87040; 87070; 87081; 87086; 88104; 88305; 89051; 92526; 92610; 93005; 93306; 94640; 94644; 94664; 96374; 96375; J0282; J0692; J1815; J1940; J2270; J2405; J3370; J7050; J7060; J7120; P9047